=== PATIENT | female | born 1945 | race Caucasian/White ===

== ENCOUNTER 2017-12-13 09:21 | Outpatient (REF) | payer OTHER, SELFPAY ==
[2017-12-13 13:00] LABS: Abs Immature Grans 0.01 k/cumm (0.0-0.09); Absolute Basophil Count 0.04 k/cumm (0.0-0.2); Absolute Eosinophil Count 0.21 k/cumm (0.0-0.7); Absolute Lymphocyte Count 1.53 k/cumm (1.2-3.4); Absolute Monocyte Count 0.62 k/cumm (0.11-0.7); Absolute Neutrophil Count 3.09 k/cumm (1.2-6.7); Basophils % 0.7; Eosinophils % 3.8; HCT 40.9 % (36.0-46.0); HGB 13.4 g/dL (12.0-15.5); Immature Grans % 0.2; Lymphocytes % 27.8; Mean Corp. HGB Concentration 32.8 g/dL (32.0-36.0); Mean Corpuscular Hemoglobin 29.1 pg (27.0-33.0); Mean Corpuscular Volume 88.9 fL (80-95); Monocytes % 11.3; Neutrophils % 56.2; Platelet Count 337 x1000/uL (130-400); RBC Distribution Width 13.1 % (11.7-14.6)
[2017-12-13 13:20] LABS: ALT 30 U/L (12-78); AST 28 U/L (15-37); Albumin 3.6 g/dL (3.4-5.0); Alkaline Phosphatase 89 U/L (46-116); Anion Gap 9.5 mmol/L (3-11); BUN 14 mg/dL (7-18); Bilirubin, Total 0.5 mg/dL (0.2-1.0); CO2 28.5 mmol/L (21.0-32.0); CREATININE 0.86 mg/dL (0.55-1.02); Chloride 101 mmol/L (98-107); Glucose 111 mg/dL (70-100); Potassium 3.8 mmol/L (3.5-5.1); Sodium 139 mmol/L (136-145); TSH (W/Ref FT4) 2.45 uIU/mL (0.358-3.74); Total Protein 7.1 g/dL (6.4-8.2)
== END 2017-12-13 09:41 ==
LOC: NCHCN 09:21
PROVIDERS: PCP Family Medicine; Visit Provider Family Medicine
DX: I10 Essential (primary) hypertension (principal); R41.3 Other amnesia; L29.9 Pruritus, unspecified
CPT/HCPCS: 80053; 84443; 85025

== ENCOUNTER 2018-06-06 08:53 | Outpatient (REF) | payer OTHER, SELFPAY ==
[2018-06-06 12:57] LABS: HCT 38.6 % (36.0-46.0); HGB 12.6 g/dL (12.0-15.5); Mean Corp. HGB Concentration 32.6 g/dL (32.0-36.0); Mean Corpuscular Hemoglobin 28.7 pg (27.0-33.0); Mean Corpuscular Volume 87.9 fL (80-95); Mean Platelet Volume 11.2 fL (8.0-11.0); Platelet Count 342 x1000/uL (130-400); RBC 4.39 m/cumm (4.00-5.20); RBC Distribution Width 13.4 % (11.7-14.6); White Blood Cell Count 5.77 k/cumm (4.4-10.8)
[2018-06-06 13:41] LABS: ALT 31 U/L (12-78); AST 25 U/L (15-37); Albumin 3.4 g/dL (3.4-5.0); Alkaline Phosphatase 92 U/L (46-116); Anion Gap 10.2 mmol/L (3-11); BUN 16 mg/dL (7-18); Bilirubin, Total 0.4 mg/dL (0.2-1.0); CO2 27.8 mmol/L (21.0-32.0); CREATININE 0.87 mg/dL (0.55-1.02); Calcium 9.3 mg/dL (8.5-10.1); Chloride 103 mmol/L (98-107); Glucose 111 mg/dL (70-100); Potassium 4.1 mmol/L (3.5-5.1); Sodium 141 mmol/L (136-145); TSH (W/Ref FT4) 2.18 uIU/mL (0.358-3.74); Total Protein 6.8 g/dL (6.4-8.2)
== END 2018-06-06 09:13 ==
LOC: NCHCN 08:53
PROVIDERS: PCP Family Medicine; Visit Provider Family Medicine
DX: I10 Essential (primary) hypertension (principal); R73.01 Impaired fasting glucose; E66.9 Obesity, unspecified
CPT/HCPCS: 80053; 85027; 83036; 84443

== ENCOUNTER 2018-06-14 00:56 | Outpatient (CLI) | payer OTHER, SELFPAY ==
--- NOTE | 2018-06-14 08:00 | DI.RAD_ITS ---
SYMPTOM/DIAGNOSIS: M25.551, RT HIP PAIN RIGHT HIP AND PELVIS: Comparison is made with 05/11/16. The right hip joint is well maintained. The bones are intact and normally mineralized. The sacroiliac joints and symphysis pubis are intact. Mild degenerative changes are seen in the lower lumbar spine which appear stable compared to 05/11/16. The soft tissues show no acute abnormality. IMPRESSION: Negative right hip. Mild stable degenerative changes of the lumbar spine.
== END 2018-06-14 01:16 ==
PROVIDERS: PCP Family Medicine; Visit Provider Family Medicine
DX: M25.551 Pain in right hip (principal)
CPT/HCPCS: 73502

== ENCOUNTER 2018-12-20 01:23 | Outpatient (CLI) | payer OTHER, SELFPAY ==
--- NOTE | 2018-12-20 14:37 | DI.CT_ITS ---
EXAM: CT CHEST WO CLINICAL HISTORY: SOLITARY PULMONARY NODULE R91.1 TECHNIQUE: Noncontrast COMPARISON: ABD PELVIS WITH CONTRAST from 11/20/2016 FINDINGS: This CT from [facility] in [facility] showed a 7 millimeter nodule at the major fissure between the left upper and lower lobes. This nodule was seen on 2017 CT of the abdomen and pelvis. There has been no change in the 7 millimeter ovoid nodule seen in the major fissure between the left upper and lower lobes. A 3-4 millimeter nodule is seen in the right lower lobe which appears unchang ed. There is minimal scarring near the right lung apex. No infiltrates, effusions or pulmonary michael a is seen. The heart size is normal. There is mild aortic calcification. There are mild coronary a rtery calcifications. There is dilatation of the ascending aorta to 4.2 cm. No adenopathy is seen. There are 2 low-density lesions in the liver which appear unchanged. The gallbladder is somewhat co ntracted. This pancreas is mildly atrophic. The adrenals, spleen and upper portions of the kidneys are unremarkable. Degenerative changes are seen in the spine. IMPRESSION: Stable smoothly marginated 7 millimeter nodule in the left major fissure. If the patient is low risk, no further follow-up is necessary.
== END 2018-12-20 01:43 ==
PROVIDERS: PCP Family Medicine; Visit Provider Family Medicine
DX: R91.1 Solitary pulmonary nodule (principal); K86.89 Other specified diseases of pancreas; K76.89 Other specified diseases of liver
CPT/HCPCS: 71250; 82565

== ENCOUNTER 2019-02-23 02:17 | Outpatient (CLI) | payer OTHER, SELFPAY ==
--- NOTE | 2019-02-23 13:13 | DI.DEXA_ITS ---
EXAM: XR DEXA BONE DENSITY W/WO RODNEY CLINICAL HISTORY: OSTEOPOROSIS M81.0 TECHNIQUE: DEXA scan was performed according to the usual protocol. COMPARISON: No exams were available for comparison FINDINGS: Findings for left hip scanning are T-score -1.7 with femoral neck T-score -1.9. Prior study of 2015 showed left hip T-score -1.9. Findings for lumbar spine scanning are T-score -0.7. Previous examination of November 2015 showed lum bar T-score -1.3. Left forearm scanning shows T-score -1.6, prior study of November 2015 showed left forearm T-score -2. 0. IMPRESSION: Findings consistent with osteopenia according to the WHO criteria. Lateral vertebral scanogram shows no evidence of a vertebral compression fracture.
== END 2019-02-23 02:37 ==
PROVIDERS: PCP Family Medicine; Visit Provider Family Medicine
DX: M81.0 Age-related osteoporosis without current pathological fracture (principal); M85.88 Other specified disorders of bone density and structure, other site
CPT/HCPCS: 77080

== ENCOUNTER 2019-03-24 06:01 | Outpatient (CLI) | payer OTHER, SELFPAY ==
--- NOTE | 2019-03-24 09:58 | DI.MAMMO_ITS ---
EXAM: MAMMO SCREENING CLINICAL HISTORY: SCREENING, Z12.31 TECHNIQUE: Mammograms were interpreted according to the usual protocol including computer analysis w [employer] CAD system, tomosynthesis and C-view imaging. COMPARISON: May 2017 FINDINGS: The breasts are of moderate density with fairly symmetrical distribution of fibroglandular tissue. N o dominant mass or clumped microcalcification is identified in either breast. Current examination is compared with previous examinations including May 2017 and there has been no gross interval change in appearance in comparison with the previous studies. IMPRESSION: No specific evidence of malignancy at this time. Routine screening examinations are suggested at year ly intervals due to the family history of breast carcinoma. Category 1, breast density category B. BI-RADS Cat 1 - Negative Breast Density - Category B - Scattered areas of fibroglandular density
== END 2019-03-24 06:21 ==
PROVIDERS: PCP Family Medicine; Visit Provider Family Medicine
DX: Z12.31 Encounter for screening mammogram for malignant neoplasm of breast (principal); Z80.3 Family history of malignant neoplasm of breast
CPT/HCPCS: 77063; 77067

== ENCOUNTER 2019-07-31 01:16 | Outpatient (CLI) | payer OTHER, SELFPAY ==
--- NOTE | 2019-07-31 | DI.CT_ITS ---
EXAM: CT NECK W CLINICAL HISTORY: NECK MASS, R22.1. TECHNIQUE: Imaging Protocol: Axial computed tomography images with coronal and sagittal reformatted images were created and reviewed CONTRAST MATERIAL: Intravenous: Omnipaque 350 Contrast volume:95 ml contrast route:IV - COMPARISON: US CAROTID ULTRASOUND from 03/14/2013 FINDINGS: Parotids/submandibular/thyroid gland: Normal. Lymphadenopathy: There are multiple bilateral enlarged lymph nodes, measuring up to 2 cm in size see n bilaterally in the sub mandibular and submental regions. Some of the nodes have a necrotic periphe rally enhancing appearance. There are a few enlarged high internal jugular lymph nodes. Carotids/Jugular: There is marked tortuosity of both internal carotid arteries which show calcificat ion.. Soft tissues: The floor the mouth is unremarkable. The epiglottis and vocal cords are within normal limits. Images through both lung apices are unremarkable. IMPRESSION: Multiple abnormally enlarged lymph nodes mainly in the submental and submandibular locations. Some o f the nodes are necrotic. No mass is identified. The findings could be related to inflammatory or i nfectious causes.. RADIATION DOSE DELIVERED: 444.6mGy.cm Total DLP DATA REPOSITORY: All CT scans at this facility are submitted to the National Radiology Data Registry (NRDR) Dose Index Registry (DIR) with the [employer] (ACR). RADIATION OPTIMIZATION: All CT scans at this facility use at least one of these dose optimization te chniques: automated exposure control; mA and/or kV adjustment per patient size (includes targeted exa ms where dose is matched to clinical indication); or iterative reconstruction.
[2019-07-31 14:10] LABS: CREATININE 0.99 mg/dL (0.55-1.02); Estimated GFR 54.68 (mL/min/1.73m2)
[2019-07-31] MEDS: Omnipaque 350 MG/ML 100 ML BTL IJ (14:43)
[2019-07-31] MEDS: Normal Saline - Diluent 50 ML VIAL IV (14:45)
[2019-07-31] MEDS: Normal Saline Flush 10 ML SYR IVP (14:46)
== END 2019-07-31 01:36 ==
PROVIDERS: PCP Family Medicine; Visit Provider Otolaryngology Otolaryngology/Facial Plastic Surgery
DX: R22.1 Localized swelling, mass and lump, neck (principal); R59.0 Localized enlarged lymph nodes
CPT/HCPCS: 70491; 82565; J3490

== ENCOUNTER 2019-08-11 11:54 | Outpatient (CLI) | payer OTHER, SELFPAY ==
[2019-08-11 12:55] LABS: Abs Immature Grans 0.01 k/cumm (0.0-0.09); Absolute Basophil Count 0.03 k/cumm (0.0-0.2); Absolute Eosinophil Count 0.17 k/cumm (0.0-0.7); Absolute Lymphocyte Count 1.43 k/cumm (1.2-3.4); Absolute Monocyte Count 0.51 k/cumm (0.11-0.7); Absolute Neutrophil Count 3.21 k/cumm (1.2-6.7); Basophils % 0.6; Eosinophils % 3.2; HCT 37.2 % (36.0-46.0); HGB 12.3 g/dL (12.0-15.5); Immature Grans % 0.2 %; Lymphocytes % 26.7; Mean Corp. HGB Concentration 33.1 g/dL (32.0-36.0); Mean Corpuscular Hemoglobin 28.7 pg (27.0-33.0); Mean Corpuscular Volume 86.9 fL (80-95); Mean Platelet Volume 9.9 fL (8.0-11.0); Monocytes % 9.5; Neutrophils % 59.8; Platelet Count 429 x1000/uL (130-400); RBC 4.28 m/cumm (4.00-5.20); RBC Distribution Width 13.9 % (11.7-14.6); White Blood Cell Count 5.36 k/cumm (4.4-10.8)
[2019-08-11 13:41] LABS: ALT 25 U/L (14-59); AST 23 U/L (15-37); Albumin 3.6 g/dL (3.4-5.0); Alkaline Phosphatase 121 U/L (46-116); Anion Gap 10.8 mmol/L (3-11); BUN 14 mg/dL (7-18); Bilirubin, Total 0.2 mg/dL (0.2-1.0); CO2 25.2 mmol/L (21.0-32.0); CREATININE 0.99 mg/dL (0.55-1.02); Calcium 9.1 mg/dL (8.5-10.1); Chloride 102 mmol/L (98-107); Estimated GFR 54.68 (mL/min/1.73m2); Glucose 109 mg/dL (74-106); Potassium 3.9 mmol/L (3.5-5.1); Sodium 138 mmol/L (136-145); Total Protein 6.9 g/dL (6.4-8.2)
[2019-08-14 10:53] LABS: CMV Ab, IgM Negative (Negative); Toxoplasma Ab, IgM Negative (Negative)
[2019-08-14 11:04] LABS: HIV-1/2 Ag & Ab Screen Negative (Negative)
[2019-08-14 11:21] LABS: Lyme Ab w Rflx to Lyme Confirm Negative (Negative)
[2019-08-14 14:39] LABS: TB Interpretation Negative (Negative)
[2019-08-17 16:02] LABS: Bartonella Henselae IgG <1:128 titer (<1:128); Bartonella Henselae IgM <1:20 titer (<1:20); Bartonella Quintana IgG <1:128 titer (<1:128); Bartonella Quintana IgM <1:20 titer (<1:20)
== END 2019-08-11 12:14 ==
PROVIDERS: PCP Family Medicine; Visit Provider Otolaryngology Otolaryngology/Facial Plastic Surgery
DX: R22.1 Localized swelling, mass and lump, neck (principal); D49.2 Neoplasm of unspecified behavior of bone, soft tissue, and skin; R59.0 Localized enlarged lymph nodes; Z11.4 Encounter for screening for human immunodeficiency virus [HIV]; Z01.84 Encounter for antibody response examination
CPT/HCPCS: 36415; 80053; 87389; 85025; 86480; 86611; 86618; 86645; 86778

== ENCOUNTER 2019-08-14 13:48 | Outpatient (REF) | payer OTHER, SELFPAY ==
[2019-08-15 13:10] LABS: COVID-19 RT-PCR UVMMC Result Negative (Negative)
== END 2019-08-14 14:08 ==
LOC: NCHCN 13:48
PROVIDERS: PCP Family Medicine; Visit Provider Physician Assistant
DX: J06.9 Acute upper respiratory infection, unspecified (principal); Z03.818 Encounter for observation for suspected exposure to other biological agents ruled out
CPT/HCPCS: U0003

== ENCOUNTER 2019-11-16 02:52 | Outpatient (RCR) | payer OTHER, SELFPAY ==
[2019-11-02 07:49] LABS: Abs Immature Grans 0.01 10^3/uL (0.0-0.06); Absolute Basophil Count 0.05 10^3/uL (0.0-0.2); Absolute Eosinophil Count 0.13 10^3/uL (0.0-0.7); Absolute Lymphocyte Count 1.94 10^3/uL (1.2-3.4); Absolute Neutrophil Count 2.61 10^3/uL (1.2-6.7); Basophils % 0.9; Eosinophils % 2.4; HCT 36.5 % (36.0-46.0); HGB 12.1 g/dL (11.2-15.7); Immature Grans % 0.2; Lymphocytes % 36.3; MCH 28.6 pg (27.0-33.0); MCHC 33.2 % (32.0-36.0); MCV 86.3 fL (80-95); MPV 9.3 fL (8.0-11.0); Monocytes % 11.2; Nucleated RBC 0 %; Platelet Count 300 10^3/uL (130-400); RBC 4.23 10^6/uL (3.93-5.22); RDW 13.3 % (11.7-14.6); RDW-SD 41.9 fL; WBC 5.34 10^3/uL (4.4-10.8)
[2019-11-02] MEDS: Normal Saline Flush 10 ML SYR IVP (07:54)
[2019-11-02 08:00] LABS: ALT 34 U/L (14-59); AST 26 U/L (15-37); Albumin 3.6 g/dL (3.4-5.0); Alkaline Phosphatase 100 U/L (46-116); Anion Gap 8.6 mmol/L (3-11); BUN 11 mg/dL (7-18); Bilirubin, Total 0.4 mg/dL (0.2-1.0); CO2 27.4 mmol/L (21.0-32.0); CREATININE 0.93 mg/dL (0.55-1.02); Calcium 8.7 mg/dL (8.5-10.1); Chloride 101 mmol/L (98-107); Estimated GFR 58.77 (mL/min/1.73m2); Glucose 114 mg/dL (74-106); LDH 184 U/L (81-234); Potassium 3.5 mmol/L (3.5-5.1); Sodium 137 mmol/L (136-145); Total Protein 7.1 g/dL (6.4-8.2); Uric Acid 4.4 mg/dL (2.6-6.0)
[2019-11-16 12:27] LABS: HCT 33.9 % (36.0-46.0); HGB 11.2 g/dL (11.2-15.7); MCH 28.6 pg (27.0-33.0); MCV 86.5 fL (80-95); MPV 9.7 fL (8.0-11.0); Platelet Count 347 10^3/uL (130-400); RBC 3.92 10^6/uL (3.93-5.22); RDW-SD 42.8 fL; WBC 15.64 10^3/uL (4.4-10.8)
[2019-11-16 12:40] LABS: ALT 33 U/L (14-59); AST 31 U/L (15-37); Albumin 3.3 g/dL (3.4-5.0); Alkaline Phosphatase 123 U/L (46-116); Anion Gap 9.7 mmol/L (3-11); BUN 8 mg/dL (7-18); Bilirubin, Total 0.2 mg/dL (0.2-1.0); CO2 28.3 mmol/L (21.0-32.0); CREATININE 0.75 mg/dL (0.55-1.02); Calcium 8.6 mg/dL (8.5-10.1); Chloride 96 mmol/L (98-107); Glucose 101 mg/dL (74-106); Sodium 134 mmol/L (136-145); Total Protein 6.8 g/dL (6.4-8.2); Uric Acid 5.8 mg/dL (2.6-6.0)
[2019-11-16 12:46] LABS: Absolute Eosinophil Count 0.16 10^3/uL (0.0-0.7); Absolute Lymphocyte Count 2.03 10^3/uL (1.2-3.4); Absolute Monocyte Count 1.88 10^3/uL (0.1-0.8); Bands % 3
[2019-11-16 12:47] LABS: Diff Comment Manual Differential; Metamyelocytes % 2; Myelocytes % 1; Nucleated RBC 1 %; RBC Morphology Normal
== END 2019-11-16 23:59 | disposition home or self-care (01) ==
LOC: INF 02:52
PROVIDERS: PCP Family Medicine; Visit Provider Internal Medicine Hematology & Oncology
DX: C83.31 Diffuse large B-cell lymphoma, lymph nodes of head, face, and neck (principal); Z45.2 Encounter for adjustment and management of vascular access device
CPT/HCPCS: 36591; 80053; 83615; 84550; 85025

== ENCOUNTER 2019-11-28 23:34 | Emergency (ER) | payer OTHER, SELFPAY ==
--- NOTE | 2019-11-28 23:30 | RT.EKG_ITS ---
APPROVED REPORT Exam: Resting ECG Patient Location: E HR:77 bpm ECG Measurements Heart Rate 77 AXIS TX 178 P 58 QRSd 86 QRS -19 QT 397 T 37 QTc 450 Conclusion Sinus rhythm...normal P axis, V-rate 60- 99
[2019-11-28 23:34] VITALS: BP 103/62; PULSE 78; RESP 14; TEMP 36.2; O2SAT 99
[2019-11-28 23:41] VITALS: RESP 14
[2019-11-28 23:44] LABS: BE (Venous) 0 mmol/L (-2-3); HCO3 (Venous) 24 mmol/L (23-28); O2 Sat (Venous) 96 %; TCO2 (Venous) 22 mmol/L (24-29); pCO2 (Venous) 36 mmHg (41-51); pH (Venous) 7.43 (7.31-7.41); pO2 (Venous) 78 mmHg
--- NOTE | 2019-11-28 23:45 | DI.CT_ITS ---
EXAM: CT HEAD WO CLINICAL HISTORY: fall. TECHNIQUE: Imaging Protocol: Axial computed tomography images with coronal and sagittal reformatted images were created and reviewed COMPARISON: CT HEAD WITH/WITHOUT CONTRAST from 09/06/2015 FINDINGS: Ventricles and Extra axial spaces: Normal in size and morphology for the patient's age. Hemorrhage: None. Cerebral parenchyma: There are areas of decreased attenuation in the white matter consistent with kristi rovascular ischemic change. No acute territorial infarct. Midline shift: None. Brainstem/Cerebellum: Normal. Calvarium: Normal. Visualized Paranasal sinuses/Mastoids: Clear. Soft Tissues: Unremarkable. IMPRESSION: No acute intracranial process. RADIATION DOSE DELIVERED: 757.04mGy.cm Total DLP DATA REPOSITORY: All CT scans at this facility are submitted to the National Radiology Data Registry (NRDR) Dose Index Registry (DIR) with the [employer] (ACR). RADIATION OPTIMIZATION: All CT scans at this facility use at least one of these dose optimization te chniques: automated exposure control; mA and/or kV adjustment per patient size (includes targeted exa ms where dose is matched to clinical indication); or iterative reconstruction.
--- NOTE | 2019-11-28 23:45 | DI.CT_ITS ---
EXAM: CT CHEST PE CTA CLINICAL HISTORY: chest pain, syncope, cancer patient. TECHNIQUE: Imaging Protocol: Axial CT angiography was performed with multi-slice acquisition and mu lti-planar and/or 3D reconstructions. CONTRAST MATERIAL: Intravenous: Omnipaque 350 Contrast volume:100 mL COMPARISON: CT ABD PELVIS WITH CONTRAST from 11/20/[address] CHEST ABDOMEN PELVIS W CONTRAST CH from 05/21/[address] CHEST WO from 12/20/2018 FINDINGS: Pulmonary Arteries: There is a filling defect in a branch of the pulmonary arteries in the left lower lobe. (Series 6, images 321-325). This would be consistent with a pulmonary embolus. No evidence of a saddle embolus. Tracheobronchial tree: Patent where visualized. Mediastinum and Jessica: No dominant adenopathy or fluid collection. Pulmonary parenchyma: No focal consolidation. Nodule adjacent to the left major fissure is unchanged and likely reflects an intraparenchymal lymph node. Dependent atelectasis is seen in the lung bases . No architectural distortion. Pleura: No effusion or pneumothorax. Heart: Mild cardiomegaly. Moderate coronary artery calcification is present. No significant pericardi al effusion. Aorta: Thoracic aorta non-dilated. Atherosclerosis. No dissection. Upper abdomen: Unremarkable. Bones: Degenerative changes. Soft tissues: Unremarkable. IMPRESSION: Findings of a pulmonary embolus in a branch of the pulmonary artery to the left lower lobe as describ ed above. RADIATION DOSE DELIVERED: 465.07mGy.cm Total DLP DATA REPOSITORY: All CT scans at this facility are submitted to the National Radiology Data Registry (NRDR) Dose Index Registry (DIR) with the [employer] (ACR). RADIATION OPTIMIZATION: All CT scans at this facility use at least one of these dose optimization te chniques: automated exposure control; mA and/or kV adjustment per patient size (includes targeted exa ms where dose is matched to clinical indication); or iterative reconstruction.
[2019-11-28 23:46] VITALS: BP 97/54; PULSE 81; PULSE 82; RESP 16; O2SAT 96
--- NOTE | 2019-11-28 23:50 | ED.GENADUL_ITS ---
Discharge Plan Disposition Patient Disposition: HOME Condition: Stable Discharge Details Clinical Impression: Syncope Primary Care Provider: Janeth Tillman ED Provider: Vamshi Younger Home Meds and New Rx's Prescriptions: Continued triamterene-hydrochlorothiazid 1 EACH capsule 1 tab-cap PO DAILY RF: 0 lovastatin 20 MG tablet 40 mg PO DAILY RF: 0 metoprolol succinate 50 MG tablet extended release 24 hr 25 mg PO DAILY RF: 0 zolpidem 10 MG tablet 10 mg PO HS PRN PRNRF: 0 ergocalciferol (vitamin D2) 2,000 UNIT tablet 2,000 unit PO DAILY RF: 0 venlafaxine 50 MG tablet 100 mg PO DAILY RF: 0 Discharge Instructions Instructions: Syncope (ED) Additional Instructions: make sure you are drinking plenty of fluids to stay hydrated follow up with your oncologist or primary care provider within 1 week if you feel more ill, have worsening pain or difficulty breathing return to the emergency department Medical Decision Making 74 yo female with hx of lymphoma who started chemotherapy within the last 4 weeks and had her 2nd dose this past comes in with feeling weak all day and tonight went to the restroom. She stood up and felt diaphoretic and chest pressure and went unresponsive for several seconds. Was awake when the came after he heard her fall. She denies any pain now and denies headache, fev ers, rashes. She arrives HD stable and is speaking in full sentences with no signs of trauma, no focal neuro deficits, normal lung exam. Suspect this could be orthostasis vs reaction to her chemotherapy, though given chest pain will obtain ecg and troponin and given her cancer history obtain cta to evaluate for PE. No tearing back pain and normal vascular exam so doubt dissection. No abdominal tenderness or lower back pain so doubt entities such as AAA or other surgical pathology. imaging shows no acute findings, she remains stable and feels no symptoms. Labs show troponin just barely outside the negative range at 0.07. I strongly recommended she be admitted given the troponin, syncope and chest pain but she declined as she feels at her baseline and wants to go home. She has capacity to make her own decisions and understands the risks of leaving including missing an [place] and possible and disability and is willing to accept these risks. I did recommend and she understands she needs to f/u with her pcp or oncologist cornelio and she understands to return if worsening in any way. Differential Diagnosis Differential Diagnosis: anemia, pe, acs, electrolyte abnormality Medical Records Medical records reviewed: Yes I reviewed the patient's medical records. Imaging Data Radiologic Study: Attestation: I personally reviewed and interpreted this imaging study as follows: Imaging: CT Scan Radiologist's impression: IMPRESSION: No acute intracranial abnormality. Radiologic Study #2: Attestation: I personally reviewed and interpreted this imaging study as follows: Imaging: CT Scan Radiologist's impression: 1. No acute process is evident. 2. No evidence of pulmonary embolism or aortic dissection. 3. Mild aneurysmal dilatation of the ascending aorta measures 4.0 cm diameter. 4. Mild cardiomegaly without evidence of decompensation. 5. Additional non-emergent findings detailed above. Lab Data Lab results reviewed: Yes I reviewed the patient's lab results. ECG Data Attestation: I personally reviewed and interpreted this ECG (s) as follows: Prior ECG tracings: not available for review Interpretation: sinus rhythm, rate of 77, pr 178, qtc 460 HPI General Mode of arrival: EMS . Date/Time Provider Initiated Documentation: 11/28/19 23:40 . Limitations to Documentation: no limitations . Information obtained by: patient . History of Present Illness 74 year old F presents to the emergency department with the chief complaint of weakness, described as moderate, No relieving factors improve symptom(s), No exacerbating factors reported . Patient did receive the following treatments prior to arrival, none Related Data Home Medications Medication Instructions Recorded Confirmed lovastatin 40 mg PO DAILY tab-cap 08/02/12 08/16/17 triamterene-hydrochlorothiazid 1 tab-cap PO DAILY tab-cap 08/02/12 08/16/17 metoprolol succinate 25 mg PO DAILY 01/26/14 08/16/17 zolpidem 10 mg PO HS PRN PRN 01/26/14 08/16/17 ergocalciferol (vitamin D2) 2,000 unit PO DAILY 11/02/16 08/16/17 venlafaxine 100 mg PO DAILY 08/12/17 08/16/17 Allergies Allergy/AdvReac Type Severity Reaction Status Date / Time amlodipine AdvReac Severe Unverified 11/28/19 23:36 lisinopril AdvReac Severe cough Unverified 11/28/19 23:36 suvorexant [From [facility]] AdvReac Severe Unverified 11/28/19 23:36 General Stated Complaint: Dizzy/Sync MARY: 2 Review of Systems All systems reviewed & are unremarkable except as noted in HPI and below Constitutional Constitutional: Denies chills and Denies fever(s) Cardiovascular Cardiovascular: Denies dyspnea Respiratory Respiratory: Denies cough and Denies dyspnea Gastrointestinal Gastrointestinal: Denies abdominal pain, Denies nausea and Denies vomiting Genitourinary Genitourinary: Denies dysuria Musculoskeletal Musculoskeletal: Denies joint swelling Integumentary/Breasts Skin/Breast: Denies rash [facility] Medical History (Updated 11/29/19 @ 00:57 by Vamshi Younger MD) Depression Hypertension Social History Smoking/Tobacco Use Status: Former Tobacco Use Alcohol Intake: never Drug use: Never Substance use type: does not use Do you feel safe at home: Yes Do you feel safe in your relationship?: Yes Exam Const General: no acute distress Orientation: alert HENMT Head: normal to inspection Ears: external ears normal General nose exam: external nose normal Mouth: moist mucous membranes Eyes General: appearance normal, both eyes and all related structures Neck Neck: normal visual inspection Resp Effort & Inspection: normal respiratory effort and able to speak in complete sentences Cardio Rate: regular rate GI Palpation: soft and nontender Skin General skin exam: no rashes or lesions noted Neuro General: patient alert and patient oriented x3 Extrem General: normal to inspection Psych Mental Status: mental status grossly normal Course Vital Signs Vital signs: Vital Signs Temperature 36.2 C L 11/28/19 23:34 Pulse 78 11/28/19 23:34 Respiratory Rate 14 11/28/19 23:34 Blood Pressure 103/62 11/28/19 23:34 Pulse Oximetry 99 11/28/19 23:34 Temperature 36.2 C L 11/28/19 23:34 Temperature Source Skin 11/28/19 23:34 Pulse 78 11/28/19 23:34 Respiratory Rate 14 11/28/19 23:41 Respiratory Effort Non-Labored 11/28/19 23:41 Respiratory Depth Normal 11/28/19 23:41 Blood Pressure 103/62 11/28/19 23:34 Blood Pressure Position Supine 11/28/19 23:34 Pulse Oximetry 99 11/28/19 23:34 Oxygen Delivery Method Room Air 11/28/19 23:34 Oxygen Flow Rate 0 11/28/19 23:34 Pain Level 0 11/28/19 23:34
[2019-11-28 23:59] LABS: PTT Activated 18.5 sec (21.0-31.4); Prothrombin Time 10.1 sec (9.3-11.0)
[2019-11-29 00:03] LABS: ALT 23 U/L (14-59); AST 17 U/L (15-37); Albumin 3.4 g/dL (3.4-5.0); Alkaline Phosphatase 130 U/L (46-116); Anion Gap 11.6 mmol/L (3-11); BUN 19 mg/dL (7-18); Bilirubin, Total 0.5 mg/dL (0.2-1.0); CO2 25.4 mmol/L (21.0-32.0); CREATININE 0.98 mg/dL (0.55-1.02); Calcium 8.8 mg/dL (8.5-10.1); Chloride 97 mmol/L (98-107); Creatine Kinase 26 U/L (26-192); Estimated GFR 55.33 (mL/min/1.73m2); Glucose 149 mg/dL (74-106); Lipase 112 U/L (73-393); Magnesium 1.9 mg/dL (1.8-2.4); Potassium 3.4 mmol/L (3.5-5.1); Sodium 134 mmol/L (136-145); Total Protein 6.5 g/dL (6.4-8.2)
[2019-11-29] MEDS: Omnipaque 350 MG/ML 100 ML BTL IJ (00:23)
[2019-11-29] MEDS: Normal Saline Flush 10 ML SYR IVP (00:23)
[2019-11-29] MEDS: Normal Saline - Diluent 50 ML VIAL IV (00:23)
[2019-11-29 00:29] VITALS: BP 94/55; PULSE 73; PULSE 92; RESP 16; O2SAT 95
[2019-11-29 00:32] VITALS: BP 94/49; PULSE 74; PULSE 78; O2SAT 97
[2019-11-29 00:32] LABS: Abs Immature Grans 0.75 10^3/uL (0.0-0.06); HCT 33.8 % (36.0-46.0); HGB 11.1 g/dL (11.2-15.7); MCH 28.5 pg (27.0-33.0); MCHC 32.8 % (32.0-36.0); MCV 86.9 fL (80-95); MPV 10.6 fL (8.0-11.0); Nucleated RBC 0 %; RBC 3.89 10^6/uL (3.93-5.22); RDW 14.5 % (11.7-14.6); Troponin I 0.07 ng/mL (<0.06); WBC 4.73 10^3/uL (4.4-10.8)
[2019-11-29 00:33] LABS: ETHANOL BLOOD < 3.0 mg/dL (<3)
[2019-11-29 00:35] LABS: Absolute Eosinophil Count 0.05 10^3/uL (0.0-0.7)
[2019-11-29 00:37] LABS: Diff Comment Manual Differential; Microcytosis 1+
[2019-11-29 00:39] VITALS: PULSE 80; RESP 19; O2SAT 96
[2019-11-29 00:44] VITALS: PULSE 77; RESP 10; O2SAT 96
[2019-11-29 00:53] VITALS: BP 90/54; PULSE 78; PULSE 79; RESP 16; O2SAT 96
[2019-11-29 01:06] VITALS: BP 93/49; PULSE 77; RESP 14; O2SAT 96
[2019-11-29 09:06] LABS: Atypical Lymphocytes % 1; Bands % 1
[2019-11-29 09:13] LABS: Absolute Lymphocyte Count 1.42 10^3/uL (1.2-3.4); Absolute Monocyte Count 0.09 10^3/uL (0.1-0.8); Absolute Neutrophil Count 3.07 10^3/uL (1.2-6.7)
[2019-11-29 09:14] LABS: Absolute Basophil Count 0.09 10^3/uL (0.0-0.2)
--- NOTE | 2019-11-30 16:04 | DI.VRAD_ITS ---
PROCEDURE INFORMATION: Exam: CT Head Without Contrast Exam date and time: 11/28/2019 12:06 AM Age: 74 years old Clinical indication: Injury or trauma; Blunt trauma (contusions or hematomas); Consciousness not specified; Injury date: 11/28/19; Injury details: Fall, cancer patient TECHNIQUE: Imaging protocol: Computed tomography of the head without contrast. Radiation optimization: All CT scans at this facility use at least one of these dose optimization techniques: automated exposure control; mA and/or kV adjustment per patient size (includes targeted exams where dose is matched to clinical indication); or iterative reconstruction. COMPARISON: CT HEAD WITH/WITHOUT CONTRAST 09/06/2015 12:59 PM FINDINGS: Brain: There is moderate diffuse cerebral atrophy present, consistent with this patient's age. No hemorrhage. There is mild diffuse heterogeneity of the white matter attenuation, this change is nonspecific but is likely secondary to chronic ischemia within microvascular distributions. No mass effect. Cerebral ventricles: No ventriculomegaly. Bones/joints: Unremarkable. No acute fracture. Paranasal sinuses: Visualized sinuses are unremarkable. No fluid levels. Mastoid air cells: Visualized mastoid air cells are well aerated. Soft tissues: Unremarkable. IMPRESSION: No acute intracranial abnormality. Dictated and Authenticated by: Minh Lao MD. Ordering:DUSTIN Bonds MD
--- NOTE | 2019-11-30 16:04 | DI.VRAD_ITS ---
PROCEDURE INFORMATION: Exam: CT Angiography Chest With Contrast Exam date and time: 11/28/2019 12:13 AM Age: 74 years old Clinical indication: Type not specified; Prior surgery; Surgery date: 1-6 months; Surgery type: Port placed, biopsy of neck; Patient HX: Chest pain, syncope, cancer patient TECHNIQUE: Imaging protocol: Computed tomographic angiography of the chest with intravenous contrast. 3D rendering (Not supervised by radiologist): MIP and/or 3D reconstructed images were created by the technologist. Radiation optimization: All CT scans at this facility use at least one of these dose optimization techniques: automated exposure control; mA and/or kV adjustment per patient size (includes targeted exams where dose is matched to clinical indication); or iterative reconstruction. Contrast material: OMNIPAQUE 350; Contrast volume: 100 ml; Contrast route: INTRAVENOUS (IV); COMPARISON: No relevant prior studies available. FINDINGS: Tubes, catheters and devices: Right jugular port with its catheter tip in the SVC. Pulmonary arteries: The pulmonary arteries enhance appropriately with no evidence of pulmonary embolism. Aorta: The aorta enhances appropriately without evidence of dissection. There is mild aneurysmal dilatation of the ascending segment measuring 4.0 cm diameter, with mild aortic tortuosity. Thyroid: The visualized thyroid gland demonstrates no gross abnormality. Lungs: No acute tracheobronchial abnormalities. No pulmonary infiltrates or edema. Mild bilateral apical pleural/parenchymal scarring. 6 mm nodule in the left mid lung along the major fissure is unchanged. No further imaging evaluation is required. Pleural space: No pleural effusion. No pneumothorax. Heart: Mild cardiomegaly. No pericardial effusion. Mediastinal space: The esophagus is largely contracted but demonstrates no gross abnormality. Lymph nodes: No supraclavicular or axillary adenopathy. No mediastinal or hilar adenopathy. Liver: Well-circumscribed low-density lesion in the left hepatic lobe measuring 8 mm in diameter, demonstrating benign CT features with an average density of 5 Hounsfield units, most consistent with hepatic cyst. No further imaging characterization/followup is required based on current consensus criteria. Bones/joints: No acute osseous abnormalities are identified. Soft tissues: The soft tissues of the chest wall demonstrate no acute abnormality. IMPRESSION: 1. No acute process is evident. 2. No evidence of pulmonary embolism or aortic dissection. 3. Mild aneurysmal dilatation of the ascending aorta measures 4.0 cm diameter. 4. Mild cardiomegaly without evidence of decompensation. 5. Additional non-emergent findings detailed above. Dictated and Authenticated by: Chente Cook MD. Ordering:DUSTIN Bonds MD
== END 2019-11-29 01:05 | disposition home or self-care (01) ==
PROVIDERS: Emergency Provider Emergency Medicine; PCP Family Medicine
DX: R55 Syncope and collapse (principal); R07.9 Chest pain, unspecified; C83.30 Diffuse large B-cell lymphoma, unspecified site; Z79.899 Other long term (current) drug therapy; I10 Essential (primary) hypertension
CPT/HCPCS: 36415; 71275; 80053; 82550; 82805; 83690; 93005; 99285; 70450; 80320; 82248; 83735; 84484; 85025; 85610; 85730; 93010; J3490

== ENCOUNTER 2019-11-29 09:16 | Inpatient (IN) | payer OTHER, SELFPAY ==
[2019-11-29] VITALS (38 sets, daily range): BP systolic 113–142; BP diastolic 62–84; PULSE 78–155; RESP 12–22; TEMP 36.2–37.2; O2SAT 94–98
--- NOTE | 2019-11-29 09:15 | RT.EKG_ITS ---
APPROVED REPORT Exam: Resting ECG Patient Location: E HR:103 bpm ECG Measurements Heart Rate 103 AXIS TN [id number] P [id number] QRSd 82 QRS -17 QT 329 T 30 QTc 431 Conclusion sinus tachycardia
--- NOTE | 2019-11-29 09:26 | W.ED.GENAD ---
Discharge Plan Disposition Patient Disposition: [facility] INPATIENT Condition: Stable Discharge Details Clinical Impression: Acute pulmonary embolism Admit Date/Time: 11/29/19 13:06 Admit Provider: Swati Webb Attending Provider: Swati Webb Primary Care Provider: Janeth Tillman ED Provider: Tushar Galan Medical Decision Making 74-year-old female had a syncopal episode yesterday while getting up from the toilet. She was seen in the emergency department where her troponin was mid range, she had a CT scan of the chest and then subsequent elected to return home. The initial reading of the CT scan was negative. Dr. Mckeon today over read positive left lower lobe pulmonary embolism and I called the patient back to be reevaluated. She states she had some mild chest pressure with deep inhalation. She has otherwise been well. She arrives tachycardic and slightly anxious, afebrile with normal oxygenation. IV access established, patient given small fluid bolus, screening chest x-ray obtained and her labs were repeated. Ultrasound lower extremities obtained and negative for DVT. Chest x-ray without acute pulmonary findings. I discussed her case with her oncologist, Dr. Sullivan. He notes that she was given Neulasta 1 week ago and may have rising white blood cell counts, she she also is 1 week status post her last treatment. He agrees with admission initiation of Lovenox but does state that she may transition to novel oral anticoagulant as best covered by her insurance. Surface echocardiogram obtained and results pending. Patient will be admitted to the hospitalist service for further observation Lab Data Lab results reviewed: Yes I reviewed the patient's lab results. Labs: Laboratory Results - last 24 hr 11/29/19 11/29/19 11/29/19 09:50 09:50 09:50 WBC 2.00 L D RBC 3.55 L Hgb 10.2 L Hct 29.7 L MCV 83.7 D MCH 28.7 MCHC 34.3 RDW 14.3 Plt Count MPV 10.3 Immature Gran % 0.0 Neutrophils % 50.0 Band Neutrophils % 3 Lymphocytes % 36.0 Atypical Lymphs % 2 Monocytes % 2.0 Eosinophils % 4.0 Basophils % 3.0 Nucleated RBC % 0 Absolute Neutrophils 1.06 L Absolute Lymphocytes 0.76 L Absolute Monocytes 0.04 L Absolute Eosinophils 0.08 Absolute Basophils 0.06 RBC Morphology Normal PT 10.2 INR 1.0 APTT 25.0 D Sodium 130 L Potassium 3.2 L Chloride 95 L Carbon Dioxide 26.8 Anion Gap 8.2 BUN 15 Creatinine 0.65 Estimated GFR/1.73 m2 >= 60.00 Glucose 106 Calcium 8.5 Magnesium 1.8 Total Bilirubin 0.5 AST 17 ALT 20 Alkaline Phosphatase 114 Troponin I 0.06 Total Protein 6.2 L Albumin 3.3 L HPI General Mode of arrival: ambulatory. Date/Time Provider Initiated Documentation: 11/29/19 09:26. Limitations to Documentation: no limitations. Information obtained by: patient. History of Present Illness 74 year old F presents to the emergency department with the chief complaint of Called back for over-read of +PE, Syncope yesterday. Mild npressure w breat, described as mild, Quality is described as dull, and is localized to the chest. Patient reports no radiation. Patient started experiencing this hour(s) and it has been intermittent. No relieving factors improve symptom(s), No exacerbating factors reported . Patient notes syncope. Patient did receive the following treatments prior to arrival, none Related Data Home Medications Medication Instructions Recorded Confirmed lovastatin 40 mg PO DAILY tab-cap 08/02/12 11/29/19 triamterene-hydrochlorothiazid 1 tab-cap PO DAILY tab-cap 08/02/12 11/29/19 metoprolol succinate 25 mg PO DAILY 01/26/14 11/29/19 zolpidem 10 mg PO HS PRN PRN 01/26/14 11/29/19 ergocalciferol (vitamin D2) 2,000 unit PO DAILY 11/02/16 11/29/19 venlafaxine 100 mg PO DAILY 08/12/17 11/29/19 Allergies Allergy/AdvReac Type Severity Reaction Status Date / Time amlodipine AdvReac Severe Unverified 11/29/19 09:24 lisinopril AdvReac Severe cough Unverified 11/29/19 09:24 suvorexant [From [facility]] AdvReac Severe Unverified 11/29/19 09:24 General Stated Complaint: Chest Pain MARY: 2 Review of Systems Narrative: Upset regarding recent diagnosis. Has completed second round out of 6 of chemotherapy. Just finished prednisone prior to third round. Notes chest pressure with deep breath. No other complaints. 8 systems reviewed and otherwise negative [facility], [facility] Medical History Depression Hypertension Social History Smoking/Tobacco Use Status: Former Tobacco Use Alcohol Intake: never Drug use: Never Substance use type: does not use Do you feel safe at home: Yes Do you feel safe in your relationship?: Yes Exam Narrative Exam Narrative: GEN: awake, alert, oriented 3. Pleasant, well groomed, interactive. HEAD: Normocephalic, atraumatic ENT: Mucous membranes moist, oropharynx unremarkable, External ear exam unremarkable EYES: PERRL, EOMI NECK: Full ROM, no JAYCOB, no menigismus CHEST/RESP: Right anterior chest port with healing incision, nontender, clear to auscultation bilateral, no wheeze/rhonchi/rales CARDIOVASCULAR: Regular and tachycardic, no murmur, rub jm. 2+ Rad pulse bilateral ABDOMEN: Soft, nontender, no mass. +Bowel sounds EXT: Full ROM, no edema, no rash Neuro: Grossly normal neurologic exam, conversant, interactive. Psych: Speech fluent, thoughts congruent, affect normal Course Vital Signs Vital signs: Vital Signs Temperature 36.4 C L 11/29/19 09:18 Pulse 128 H 11/29/19 09:18 Respiratory Rate 18 11/29/19 09:18 Blood Pressure 142/76 H 11/29/19 09:18 Pulse Oximetry 98 11/29/19 09:18 Temperature 36.4 C L 11/29/19 09:18 Temperature Source Tympanic 11/29/19 09:18 Pulse 128 H 11/29/19 09:18 Respiratory Rate 18 11/29/19 09:18 Respiratory Effort Non-Labored 11/29/19 09:23 Blood Pressure 142/76 H 11/29/19 09:18 Blood Pressure Position Sitting 11/29/19 09:18 Pulse Oximetry 98 11/29/19 09:18 Oxygen Delivery Method Room Air 11/29/19 09:18 Oxygen Flow Rate 0 11/29/19 09:18 Pain Level 5 11/29/19 09:18
--- NOTE | 2019-11-29 09:45 | DI.US_ITS ---
EXAM: US EXTREMITY VENOUS BI CLINICAL HISTORY: Lymphoma, PE. TECHNIQUE: Bilateral lower extremity venous ultrasound performed using grayscale, color-flow, and sp ectral Doppler analysis. COMPARISON: CT CT CHEST PE CTA from 11/29/2019 FINDINGS: The bilateral common femoral, femoral and popliteal veins demonstrate normal compressibility, augment ation, and color Doppler. The posterior tibial veins are patent. The saphenofemoral junctions are unr emarkable. There is no evidence of a Pagan's cyst. The soft tissues are unremarkable. IMPRESSION: Right: Negative for DVT Left: Negative for DVT Findings were discussed with the emergency department on the date of the examination. DATA REPOSITORY:
[2019-11-29] MEDS: Normal Saline 500 ML IV (10:00)
[2019-11-29] MEDS: Normal Saline-STERILE FIELD 0.9% 10 ML SYR (10:02)
[2019-11-29] MEDS: Enoxaparin 80 MG/0.8 ML SYR SC ×2 (10:06→21:43)
[2019-11-29 10:08] LABS: Abs Immature Grans 0.01 10^3/uL (0.0-0.06); Absolute Basophil Count 0.06 10^3/uL (0.0-0.2); HCT 29.7 % (36.0-46.0); HGB 10.2 g/dL (11.2-15.7); MCH 28.7 pg (27.0-33.0); MCHC 34.3 % (32.0-36.0); MCV 83.7 fL (80-95); MPV 10.3 fL (8.0-11.0); Nucleated RBC 0 %; RBC 3.55 10^6/uL (3.93-5.22); RDW 14.3 % (11.7-14.6); RDW-SD 43.7 fL
--- NOTE | 2019-11-29 10:15 | DI.RAD_ITS ---
EXAM: XR PORTABLE CHEST AP CLINICAL HISTORY: Chest pressure, PE noted on CT last night TECHNIQUE: 2D digital imaging was performed. COMPARISON: CT CT CHEST ABDOMEN PELVIS W CONTRAST CH from 05/21/[address] CHEST PE CTA from 11/29/2019 FINDINGS: MEDIASTINUM: Normal. HEART: Normal. PULMONARY VASCULATURE: Normal. LUNGS: Clear. PLEURAL SPACE: No pleural effusion or pneumothorax. BONE:Within normal limits for the patient's age. OTHER FINDINGS:The tip of the indwelling central venous catheter is in good position at the junction of the superior vena cava and right atrium. IMPRESSION: No acute pulmonary findings. DATA REPOSITORY: RADIATION DOSE DELIVERED:
[2019-11-29 10:22] LABS: ALT 20 U/L (14-59); AST 17 U/L (15-37); Albumin 3.3 g/dL (3.4-5.0); Alkaline Phosphatase 114 U/L (46-116); Anion Gap 8.2 mmol/L (3-11); BUN 15 mg/dL (7-18); Bilirubin, Total 0.5 mg/dL (0.2-1.0); CO2 26.8 mmol/L (21.0-32.0); CREATININE 0.65 mg/dL (0.55-1.02); Calcium 8.5 mg/dL (8.5-10.1); Chloride 95 mmol/L (98-107); Glucose 106 mg/dL (74-106); Magnesium 1.8 mg/dL (1.8-2.4); Potassium 3.2 mmol/L (3.5-5.1); Sodium 130 mmol/L (136-145); Total Protein 6.2 g/dL (6.4-8.2); Troponin I 0.06 ng/mL (<0.06)
[2019-11-29 10:25] LABS: Prothrombin Time 10.2 sec (9.3-11.0)
[2019-11-29] MEDS: POTASSIUM CHLORIDE 20 MEQ/100 ML BAG 50 MEQ IVPB (10:41)
[2019-11-29 10:56] LABS: Absolute Eosinophil Count 0.08 10^3/uL (0.0-0.7); Absolute Lymphocyte Count 0.76 10^3/uL (1.2-3.4); Absolute Monocyte Count 0.04 10^3/uL (0.1-0.8); Absolute Neutrophil Count 1.06 10^3/uL (1.2-6.7); Atypical Lymphocytes % 2; Bands % 3
[2019-11-29 10:57] LABS: Diff Comment Manual Differential; RBC Morphology Normal
[2019-11-29] MEDS: Normal Saline 1,000 ML 125 ML IV ×2 (12:00→20:00)
[2019-11-29 13:47] LABS: Troponin I 0.06 ng/mL (<0.06)
[2019-11-29] MEDS: Potassium Chloride 20 MEQ TABCR PO (14:47)
--- NOTE | 2019-11-29 15:58 | W.PM.HP.N ---
Date of service: 11/29/19 Time of Service: 15:58 Assessment and Plan Assessment and plan (1) Acute pulmonary embolism: Status: Acute Assessment and plan: In setting of malignancy. Will continue lovenox initiated in ED. Will monitor on tele. Will check orthostatics and ambulatory pulse ox. Encourage pulmonary toileting. (2) Neutropenia: Status: Acute Assessment and plan: s/p neulasta. No indication for abx at this time. Monitor for a fever. (3) Diffuse large B cell lymphoma: Status: Acute Assessment and plan: Likely the cause of PE. On chemo. Will need to follow up with her hem/onc as outpatient. (4) Syncope: Status: Resolved Assessment and plan: In setting of PE. Check orthostatics. Will hydrate while inpatient. (5) Hypertension: Status: None Assessment and plan: Will hold Triamterene/HCTZ and place holding parameters on metoprolol today. (6) Hypokalemia: Status: Acute Assessment and plan: Replete, check mag, and recheck in am (7) Depression: Status: None Assessment and plan: Continue venlafaxine. (8) Discharge planning issues: Status: Acute Assessment and plan: Full code Expected to be discharged home tomorrow History of Present Illness History of Present Illness Chief Complaint: Chest pressure on inspiration Narrative: Ms Whaley is a 74 year old female with PMHx of diffuse large B-cell lymphoma on R-CHOP/ONPRO, last tx on 11/23/2019 (2nd cycle) , s/p neulasta, as well as h/o HTN, dislipidemia, and depression, who was seen in our ED on 11/28/2019 after having a syncopal episode on getting up from a toilet after urination. At the time, she felt diaphoretic and had chest pressure. Her workup included a CTA of the chest, for which the preliminary read was negative, an indeterminate but flat troponin, and was otherwise unremarkable, so she was discharged home. Today, the final read of the CTA became available and, in fact, the patient does have a PE in her LLL. The patient endorsed chest pressure on inhalation to the ED provider. She already had an echo and venous dopplers. Echo did not reveal R heart strain, and venous dopplers were negative. The patient was initiated on full dose lovenox. Her hem/onc doctor was consulted (Dr Sullivan) and recommended transitioning to a DOAC that the patient's insurance covers at the time of discharge. We were asked to admit the patient for further care. Review of Systems Narrative: Additionally, the patient denies fever, cough. Endorses feeling tired/exhausted, jittery, and having palpitations. All systems reviewed & are unremarkable except as noted in HPI and below PFSH Medical History (Updated 11/29/19 @ 17:27 by Swati Webb MD) Depression Diffuse large B cell lymphoma Hypertension Surgical History (Updated 11/29/19 @ 17:23 by Swati Webb MD) Port-A-Cath in place infusaport S/P lymph node biopsy Family History (Updated 11/29/19 @ 17:25 by Swati Webb MD) Father Heart disease Cancer lung Mother Diabetes Cancer breast Brother Hypertension Cancer lymphoma Sister Hypertension Cancer breast Niece Cancer ? type Social History Smoking/Tobacco Use Status: Former Tobacco Use Alcohol Intake: never Drug use: Never Substance use type: does not use Do you feel safe at home: Yes Do you feel safe in your relationship?: Yes Meds Home Medications and Allergies Home Medications Medication Instructions Recorded Confirmed Type lovastatin 40 mg PO DAILY tab-cap 08/02/12 11/29/19 History triamterene-hydrochlorothiazid 1 tab-cap PO DAILY tab-cap 08/02/12 11/29/19 History metoprolol succinate 25 mg PO DAILY 01/26/14 11/29/19 History zolpidem 10 mg PO HS PRN PRN 01/26/14 11/29/19 History ergocalciferol (vitamin D2) 2,000 unit PO DAILY 11/02/16 11/29/19 History venlafaxine 100 mg PO DAILY 08/12/17 11/29/19 History Allergies Allergy/AdvReac Type Severity Reaction Status Date / Time amlodipine AdvReac Severe Unverified 11/29/19 09:24 lisinopril AdvReac Severe cough Unverified 11/29/19 09:24 suvorexant [From [facility]] AdvReac Severe Unverified 11/29/19 09:24 Exam Narrative Exam Narrative: General: Very pleasant middle-aged female, A&Ox3, no visible tachypnea/dyspnea, able to complete full sentences without issue, tearful when talking about recent of her niece Neurological: A&OX3, no focal deficits Psychiatric: appropriate speech pattern/content Skin: Visible skin intact HEENT: Atraumatic, normocephalic, EOMI, MMM, clear oropharynx, no submandibular or cervical lymphadenopathy that I can definitively palpate, no goiter or JVD Cardiovascular: RRR, slightly tachycardic, no m/r/g Lungs: CTAB Gastrointestinal: soft, nontender, nondistended Genitourinary: deferred Extremities: no e/c/c BLE's Results Imaging Additional studies: CTA chest (yesterday): Findings of a pulmonary embolus in a branch of the pulmonary artery to the left lower lobe as described above. Venous dopplers BLE's: Right: Negative for DVT Left: Negative for DVT Echo: Left Ventricle The left ventricle is normal size. The left ventricular systolic function is normal. The left ventricular ejection fraction is within the normal range. There is normal left ventricular wall thickness. There is normal LV segmental wall motion. There is no ventricular septal defect visualized. LVEF is 60%. Right Ventricle Right ventricle is not well visualized. Right ventricular systolic function could not be assessed. The RVSP is 22.5 mmHg. Atria The left atrium size is normal. Right atrium is not well visualized. The interatrial septum is intact with no evidence for an atrial septal defect. Aortic Valve The Aortic valve is sclerotic. Aortic valve is trileaflet. There is no aortic valvular stenosis. Trace to mild aortic regurgitation. Mitral Valve Mild mitral annular calcification. No evidence of mitral valve stenosis. Trace mitral regurgitation. Tricuspid Valve The tricuspid valve is normal in structure. There is no tricuspid valve stenosis. Trace tricuspid regurgitation. Pulmonic Valve Pulmonic valve is not well visualized. There is no pulmonic valvular stenosis. There is no pulmonic valvular regurgitation. Great Vessels The aortic root is normal in size. The ascending aorta is mildly Aortic arch is not well visualized.dilated. IVC is normal in size and collapses >50% with inspiration. Pericardium There is no pericardial effusion. CXR: No acute pulmonary findings. EKG: HR 103, Sinus tach, nonspecific ST-T changes Labs Result diagrams: 11/29/19 09:50 11/29/19 09:50 Labs: Laboratory Results - last 24 hr 11/29/19 11/29/19 11/29/19 09:50 09:50 09:50 WBC 2.00 L D RBC 3.55 L Hgb 10.2 L Hct 29.7 L MCV 83.7 D MCH 28.7 MCHC 34.3 RDW 14.3 Plt Count MPV 10.3 Immature Gran % 0.0 Neutrophils % 50.0 Band Neutrophils % 3 Lymphocytes % 36.0 Atypical Lymphs % 2 Monocytes % 2.0 Eosinophils % 4.0 Basophils % 3.0 Nucleated RBC % 0 Absolute Neutrophils 1.06 L Absolute Lymphocytes 0.76 L Absolute Monocytes 0.04 L Absolute Eosinophils 0.08 Absolute Basophils 0.06 RBC Morphology Normal PT 10.2 INR 1.0 APTT 25.0 D Sodium 130 L Potassium 3.2 L Chloride 95 L Carbon Dioxide 26.8 Anion Gap 8.2 BUN 15 Creatinine 0.65 Estimated GFR/1.73 m2 >= 60.00 Glucose 106 Calcium 8.5 Magnesium 1.8 Total Bilirubin 0.5 AST 17 ALT 20 Alkaline Phosphatase 114 Troponin I 0.06 Total Protein 6.2 L Albumin 3.3 L 11/29/19 13:15 WBC RBC Hgb Hct MCV MCH MCHC RDW Plt Count MPV Immature Gran % Neutrophils % Band Neutrophils % Lymphocytes % Atypical Lymphs % Monocytes % Eosinophils % Basophils % Nucleated RBC % Absolute Neutrophils Absolute Lymphocytes Absolute Monocytes Absolute Eosinophils Absolute Basophils RBC Morphology PT INR APTT Sodium Potassium Chloride Carbon Dioxide Anion Gap BUN Creatinine Estimated GFR/1.73 m2 Glucose Calcium Magnesium Total Bilirubin AST ALT Alkaline Phosphatase Troponin I 0.06 Total Protein Albumin Last Vital Signs Temp 36.2 C L 11/29/19 14:34 Pulse 92 H 11/29/19 14:34 Resp 16 11/29/19 14:34 BP 113/73 11/29/19 14:34 Pulse Ox 97 11/29/19 14:34 COVID-19 Screening Have you,or household,traveled outside [place] in last 14 days?: No Had IN PERSON contact w/suspected or confirmed C-19 person: No
[2019-11-29] MEDS: Lovastatin 40 MG TAB PO (20:18)
[2019-11-29] MEDS: Zolpidem 10 MG TAB PO (21:43)
[2019-11-30] VITALS (8 sets, daily range): BP systolic 115–143; BP diastolic 68–84; PULSE 87–158; RESP 15–18; TEMP 36–37; O2SAT 93–99
[2019-11-30] MEDS: Normal Saline 1,000 ML 125 ML IV ×2 (02:36→10:29)
[2019-11-30 08:14] LABS: COVID-19 RT-PCR UVMMC Result Negative (Negative)
[2019-11-30 08:22] LABS: Abs Immature Grans 0.01 10^3/uL (0.0-0.06); Absolute Basophil Count 0.02 10^3/uL (0.0-0.2); HCT 28.4 % (36.0-46.0); HGB 9.4 g/dL (11.2-15.7); MCH 28.7 pg (27.0-33.0); MCHC 33.1 % (32.0-36.0); MCV 86.9 fL (80-95); MPV 10.5 fL (8.0-11.0); Nucleated RBC 0 %; RBC 3.27 10^6/uL (3.93-5.22); RDW 14.2 % (11.7-14.6); RDW-SD 45.2 fL
[2019-11-30 08:48] LABS: Anion Gap 9.7 mmol/L (3-11); BUN 8 mg/dL (7-18); CO2 24.3 mmol/L (21.0-32.0); CREATININE 0.65 mg/dL (0.55-1.02); Calcium 7.9 mg/dL (8.5-10.1); Chloride 104 mmol/L (98-107); Glucose 101 mg/dL (74-106); Magnesium 1.6 mg/dL (1.8-2.4); Potassium 3.3 mmol/L (3.5-5.1); Sodium 138 mmol/L (136-145)
[2019-11-30 08:50] LABS: Troponin I 0.11 ng/mL (<0.06)
[2019-11-30] MEDS: Cholecalciferol (Vitamin D3) 1,000 UNIT TAB 2000 UNITS PO (09:01)
[2019-11-30] MEDS: Venlafaxine 50 MG TAB 100 MG PO (09:01)
[2019-11-30] MEDS: Metoprolol CR 50 MG TABCR 25 MG PO (09:01)
[2019-11-30 09:03] LABS: WBC 1.01 10^3/uL (4.4-10.8)
[2019-11-30 09:04] LABS: Absolute Eosinophil Count 0.18 10^3/uL (0.0-0.7); Absolute Lymphocyte Count 0.41 10^3/uL (1.2-3.4); Absolute Monocyte Count 0.12 10^3/uL (0.1-0.8); Absolute Neutrophil Count 0.23 10^3/uL (1.2-6.7); Atypical Lymphocytes % 1
[2019-11-30 09:05] LABS: Diff Comment Manual Differential; Platelet Count 155 10^3/uL (130-400); RBC Morphology Normal
--- NOTE | 2019-11-30 09:45 | RT.EKG_ITS ---
APPROVED REPORT Exam: Resting ECG Patient Location: I HR:110 bpm ECG Measurements Heart Rate 110 AXIS IA 170 P 40 QRSd 86 QRS -23 QT 332 T 29 QTc 450 Conclusion Sinus tachycardia...rate> 99 Inferior infarct, old...Q >35mS, II III aVF
[2019-11-30] MEDS: MAGNESIUM SULFATE 2 GM/50 ML BAG IVPB (10:32)
[2019-11-30] MEDS: Potassium Chloride 20 MEQ TABCR 40 MEQ PO (10:39)
[2019-11-30] MEDS: Enoxaparin 80 MG/0.8 ML SYR SC ×2 (10:40→21:53)
--- NOTE | 2019-11-30 12:00 | W.NUTRFU ---
Date of service: 11/30/19 Time of Service: 12:00 Nutritional Follow up NOTE: 74 year old female admitted with syncope with PE. PMH: diffuse large B cell lymphoma on neutropenic precautions. BMI indicates class 1 obesity and has been stable > 1 year. PO intake adequate and meeting nutrition and fluid needs. Will continue to follow. Time Spent in Nutritional Counseling and Treatment: 0 time spent face to face
--- NOTE | 2019-11-30 12:46 | PDOC.CMIN ---
- If Service Date Differs Date of service: 11/30/19 Time of Service: 12:46 Care Management Initial Assess REASON FOR HOSPITALIZATION:: LLL PE PAST MEDICAL HISTORY/PAST SURGICAL HISTORY:: Medical History. Depression. Diffuse large B cell lymphoma. Hypertension. Surgical History. Port-A-Cath in place. infusaport. S/P lymph node biopsy PREVIOUS FUNCTIONAL STATUS/SOCIAL/FAMILY SUPPORTS:: Tierra lives with her , Chente in [facility]. 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 They moved to [place] to retire close to their grand daughter, who is now 13. She is receiving cancer treatments at [facility] currently. She is independent with her ADL's. CURRENT FUNCTIONAL STATUS:: Tierra was sitting up in her chair when CM met with her. Her was in the room visiting. She reported that she is feeling good, and is hoping to go home as soon as possible. Per report, she will have a Cardio consult today, as well as an EKG. CM will continue to follow. ADVANCE DIRECTIVES:: None on file at [facility]. Has patient been provided with info about the portal/API?: No Did the patient sign up for the portal?: No CODE STATUS:: Full Code INSURANCE COVERAGE / FINANCIAL ISSUES:: [facility]- Commercial MCR replacement. Financial assist 100%. CURRENT HOME/COMMUNITY SERVICES/EQUIPMENT:: No current equipment. Cancer treatment through [facility]. PRIMARY CARE PHYSICIAN:: Janeth Tillman POTENTIAL DISCHARGE NEEDS:: Evaluations for further needs, follow up appointments. PATIENT/FAMILY EDUCATION NEEDS:: Review discharge instructions regarding activity levels and medications, discussion of self care needs including ask me three. ANTICIPATED BARRIERS TO DISCHARGE:: None identified at this time. TRANSPORTATION:: Via private vehicle by family. PLAN:: Anticipate Tierra will return home when medically cleared, likely with no new services. Her will drive her home via private vehicle. She will follow up with her PCP, Oncologist, and discharge plan of care. CM will continue to follow.
[2019-11-30 13:34] LABS: Troponin I 0.11 ng/mL (<0.06)
--- NOTE | 2019-11-30 14:48 | CHAPLAIN ---
Tierra was sitting up, visiting with her when I stopped in. I explained my role and offered support. They were both pleasant, but not interested in further conversation.
--- NOTE | 2019-11-30 15:19 | PHA.REVIEW ---
Pharmacy Admission Review - Admission Clinical Review (Last Updated 11/29/19 @ 17:23 by Swati Webb MD) Hypokalemia (Acute) Neutropenia (Acute) Discharge planning issues (Acute) Diffuse large B cell lymphoma (Acute) Acute pulmonary embolism (Acute) amlodipine Adverse Reaction (Severe, Unverified 11/29/19 09:24) lisinopril Adverse Reaction (Severe, Unverified 11/29/19 09:24) cough suvorexant [From [facility]] Adverse Reaction (Severe, Unverified 11/29/19 09:24) Height 5 ft Weight 76.5 kg - Renal Dosing Renal Dosing: BUN 8 mg/dL (7-18) D 11/30/19 07:50 Creatinine 0.65 mg/dL (0.55-1.02) 11/30/19 07:50 Medications needing adjustments: Reviewed - Anticoagulation Anticoagulation: Hgb 9.4 g/dL (11.2-15.7) L 11/30/19 07:50 Hct 28.4 % (36.0-46.0) L 11/30/19 07:50 Plt Count 155 10^3/uL (130-400) D 11/30/19 07:50 INR 1.0 (0.9-1.1) 11/29/19 09:50 Creatinine 0.65 mg/dL (0.55-1.02) 11/30/19 07:50 - Opiate Usage Evaluate Pain Scale/Pains Meds: N/A - Relevant Labs Sodium 138 mmol/L (136-145) 11/30/19 07:50 Potassium 3.3 mmol/L (3.5-5.1) L 11/30/19 07:50 Chloride 104 mmol/L (98-107) 11/30/19 07:50 Magnesium 1.6 mg/dL (1.8-2.4) L 11/30/19 07:50 Electrolytes, C-Reactive P, ESR: Reviewed (40 meq K+ PO, 2gm IV Mag given today) - DM Control DM Control: Glucose 101 mg/dL (74-106) 11/30/19 07:50 Insulin Dosing: N/A - Heart Failure/NY Heart Failure/NY: Troponin I 0.11 ng/mL (<0.06) H* 11/30/19 12:45 EF%, MARTIN's, B-Blockers, Diuretics: Reviewed - BP Control BP Control: Blood Pressure 118/71 Blood Pressure 134/77 Blood Pressure 121/70 If elevated: Reviewed - Qtc Review If Elevated: Reviewed List meds needing interventions: 431 on admission - Home Meds Relevent Home Meds Not ordered & why?: spoke with pt's pharmacy directly and only meds filled there are potassium, zolpidem 5mg, a prednisone rx to be taken on days getting chemo, allopurinol, prochlorperazine prn -- pharmacy dose not have record of other rxs on pt's med list with us, will reconcile with pcp Janeth Tillman in the AM - Current meds Current Medication Order Review: Reviewed
--- NOTE | 2019-11-30 18:08 | PGE_ITS ---
Date of Service Date of service: 11/30/19 Time of Service: 18:08 Assessment and Plan Assessment and plan (1) Acute pulmonary embolism: Status: Acute Assessment and plan: In setting of malignancy. Continue lovenox and monitoring on tele. Given absence of R heart strain on echo yesterday, I doubt that tachycardia today is related to this. I am requesting that orthostatics be checks now. Does not appear to be requiring oxygen on ambulation (amb. pulse ox 93% on RA). Educated on pulmonary toileting. (2) Neutropenia: Status: Acute Assessment and plan: s/p neulasta. Worse today. No fever. Will recheck in an. If ANC worse, will speak with hem/onc re possible neupogen. No indication for abx at this time. Monitor for a fever. (3) Elevated troponin: Status: Acute Assessment and plan: In setting of sinus tachycardia. No evidence of right heart strain on echo. No ACS. I think this is tachycardia related. Will increase beta blockade. Monitor on tele. (4) Diffuse large B cell lymphoma: Status: Acute Assessment and plan: Likely the cause of PE. On chemo. Will need to follow up with her hem/onc as outpatient. (5) Syncope: Status: Resolved Assessment and plan: In setting of PE. Check orthostatics. The patient is clinically euvolemic at this time. (6) Hypertension: Status: None Assessment and plan: Continue to hold Triamterene/HCTZ while we are increasing metoprolol due to the tachycardia (7) Hypokalemia: Status: Acute Assessment and plan: Replete, check mag, and recheck in am (8) Depression: Status: None Assessment and plan: Continue venlafaxine. (9) Discharge planning issues: Status: Acute Assessment and plan: Full code Expected to be discharged home tomorrow Subjective Subjective Interval history since last seen: Ms Whaley states that she is feeling better today. She does not have as much pressure in her chest or shortness of breath. She is unaware of her rapid heart rate this morning (up to 150's at rest, asymptomatic). She denies dizziness, nausea, diarrhea. She states that she would like to have all her infusions and lab draws through the port. Exam Narrative Exam Narrative: General: Very pleasant middle-aged female, A&Ox3, no visible tachypnea/dyspnea, Anxious HEENT: EOMI, MMM Cardiovascular: RRR, slightly tachycardic, no m/r/g Lungs: CTAB Gastrointestinal: soft, nontender, nondistended Extremities: no e/c/c BLE's Objective Last Vital Signs Temp 36.0 C L 11/30/19 11:05 Pulse 108 H 11/30/19 11:05 Resp 16 11/30/19 11:05 BP 118/71 11/30/19 11:05 Pulse Ox 97 11/30/19 11:05 Laboratory Results - last 24 hr 11/29/19 11/30/19 11/30/19 13:35 07:50 07:50 WBC 1.01 L* D RBC 3.27 L Hgb 9.4 L Hct 28.4 L MCV 86.9 D MCH 28.7 MCHC 33.1 RDW 14.2 Plt Count 155 D MPV 10.5 Immature Gran % 0.0 Neutrophils % 23.0 Lymphocytes % 40.0 Atypical Lymphs % 1 Monocytes % 12.0 Eosinophils % 18.0 Basophils % 2.0 Nucleated RBC % 0 Absolute Neutrophils 0.23 L* Absolute Lymphocytes 0.41 L Absolute Monocytes 0.12 Absolute Eosinophils 0.18 Absolute Basophils 0.02 RBC Morphology Normal Sodium 138 Potassium 3.3 L Chloride 104 Carbon Dioxide 24.3 Anion Gap 9.7 BUN 8 D Creatinine 0.65 Estimated GFR/1.73 m2 >= 60.00 Glucose 101 Calcium 7.9 L Magnesium 1.6 L Troponin I 0.11 H* COVID-19 PCR Negative Nasopharyn COVID-19 PCR Not Applicable Ref Test Perform Site [facility] 11/30/19 12:45 WBC RBC Hgb Hct MCV MCH MCHC RDW Plt Count MPV Immature Gran % Neutrophils % Lymphocytes % Atypical Lymphs % Monocytes % Eosinophils % Basophils % Nucleated RBC % Absolute Neutrophils Absolute Lymphocytes Absolute Monocytes Absolute Eosinophils Absolute Basophils RBC Morphology Sodium Potassium Chloride Carbon Dioxide Anion Gap BUN Creatinine Estimated GFR/1.73 m2 Glucose Calcium Magnesium Troponin I 0.11 H* COVID-19 PCR Nasopharyn COVID-19 PCR Ref Test Perform Site
[2019-11-30] MEDS: Lovastatin 40 MG TAB PO (20:26)
[2019-11-30] MEDS: Metoprolol 25 MG TAB PO (20:26)
[2019-11-30] MEDS: Zolpidem 10 MG TAB PO (21:54)
[2019-11-30] MEDS: Normal Saline Flush 10 ML SYR IVP (21:54)
[2019-12-01 00:49] VITALS: BP 109/73; PULSE 85; RESP 17; TEMP 36.5; O2SAT 98
[2019-12-01 03:15] VITALS: BP 116/73; PULSE 90; RESP 18; TEMP 36; O2SAT 97
[2019-12-01 07:39] LABS: Anion Gap 10.7 mmol/L (3-11); BUN 6 mg/dL (7-18); CO2 23.3 mmol/L (21.0-32.0); CREATININE 0.66 mg/dL (0.55-1.02); Chloride 104 mmol/L (98-107); Glucose 98 mg/dL (74-106); Magnesium 1.9 mg/dL (1.8-2.4); Potassium 3.5 mmol/L (3.5-5.1); Sodium 138 mmol/L (136-145)
[2019-12-01 07:40] VITALS: BP 117/73; PULSE 90; RESP 18; TEMP 36.3; O2SAT 96
[2019-12-01 08:17] LABS: Abs Immature Grans 0.06 10^3/uL (0.0-0.06); Absolute Monocyte Count 0.31 10^3/uL (0.1-0.8); HCT 26.6 % (36.0-46.0); HGB 8.6 g/dL (11.2-15.7); MCH 28.3 pg (27.0-33.0); MCHC 32.3 % (32.0-36.0); MCV 87.5 fL (80-95); MPV 10.8 fL (8.0-11.0); Nucleated RBC 0 %; RBC 3.04 10^6/uL (3.93-5.22); RDW 14.2 % (11.7-14.6); RDW-SD 45.4 fL
[2019-12-01 08:39] LABS: Bands % 2
[2019-12-01 08:40] LABS: Absolute Lymphocyte Count 0.73 10^3/uL (1.2-3.4); Platelet Count 128 10^3/uL (130-400)
[2019-12-01 08:41] LABS: Absolute Basophil Count 0.05 10^3/uL (0.0-0.2); Absolute Eosinophil Count 0.25 10^3/uL (0.0-0.7); Metamyelocytes % 1
[2019-12-01 08:42] LABS: Absolute Neutrophil Count 0.46 10^3/uL (1.2-6.7); Diff Comment Manual Differential; RBC Morphology Normal; WBC 1.82 10^3/uL (4.4-10.8)
[2019-12-01] MEDS: Venlafaxine 50 MG TAB 100 MG PO (08:54)
[2019-12-01] MEDS: Cholecalciferol (Vitamin D3) 1,000 UNIT TAB 2000 UNITS PO (08:54)
[2019-12-01] MEDS: Metoprolol 25 MG TAB PO (08:54)
--- NOTE | 2019-12-01 09:06 | NUR.NOTE ---
Nursing Note: PT W/R UPPER CHEST PORT. PATENT W/GOOD BLOOD RETURN. LABS DRAWN USING 10CC STERILE SYRINGE. PORT FLUSHED AND SECURED.
--- NOTE | 2019-12-01 10:14 | W.PM.DS.N ---
Date of service: 12/01/19 Time of Service: 10:14 DS: Diagnosis Discharge Diagnosis (1) Acute pulmonary embolism: Status: Acute (2) Neutropenia: Status: Acute (3) Elevated troponin: Status: Acute Asessment and Plan: Indeterminate range; no evidence of ACS or R heart strain. Likely related to sinus tachycardia. (4) Sinus tachycardia: Status: Resolved (5) Diffuse large B cell lymphoma: Status: Acute (6) Syncope: Status: Resolved (7) Hypertension: Status: Chronic (8) Hypokalemia: Status: Resolved (9) COVID-19 ruled out by laboratory testing: Status: Ruled-out Discharge Plan Disposition Patient Disposition: HOME Condition: Stable Discharge Details Reason For Visit: LLL PE, NEUTROPENIA Admit Date/Time: 11/30/19 18:15 Admit Provider: Swati Webb Attending Provider: Swati Webb Primary Care Provider: Janeth Tillman [facility] Course Hospital Course: Ms Whaley is a 74 year old female with PMHx of large B cell lymphoma, on chemo as well as neulasta, hypertension, dislipidemia, and depression, who was a patient on [facility] hospitalist service from 11/29/2019 until 12/01/2019 for an acute PE and neutropenia without evidence of infection. The patient had actually presented to [facility] ED on 11/28/2019 after a post-micturation syncope, at which time the CTA of the chest was obtained, which was originally read as negative, but then over-read as having a LLL PE. The patient was initiated on therapeutic lovenox. Her Echo did not reveal R heart strain. Her venous dopplers of BLEs were negative for a DVT. Importantly, the patient was not orthostatic, and so vasovagal mechanism for the syncope on 11/28/2019 is still likely. We did note the patient having an intermediate-range troponin I, but no changes on the EKG or findings on the echo suggestive of underlying CAD or, again, R heart strain. Rather, we think the intermediate troponin was due to slight demand from sinus tachycardia (up to 140s -150s at rest) without another cause. Her toprol XL was doubled from 25 mg to 50 mg with resolution of tachycardia. Her chest pressure on inspiration has resolved. She is being discharged home on therapeutic eliquis (pending care management verification of insurance coverage thereof). As far as her neutropenia, this was expected given the timing of her chemo, [place] [facility] [place] The lowest her ANC got was 0.23. It since then started to improve (0.46 on the day of discharge). The patient has had no fever or sign of infection and is not receiving antibiotics at the time of discharge. We would like for her to follow up with her PCP Dr Tillman and her Dr Sullivan of hem/onc within 1 week. Care for patient as well as completion of her discharge summary took 45 minutes on the day of discharge. Home Meds and New Rx's Prescriptions: New Eliquis 5 mg tablet See Rx Instructions .ROUTE .COMPLEX Qty: 70 RF: 0 acetaminophen [Tylenol] 325 mg Tablet 650 mg PO Q4H PRN PRN30 Days RF: 0 Continued lovastatin 20 MG tablet 40 mg PO DAILY RF: 0 potassium chloride 20 mEq tablet,ER particles/crystals 20 meq PO DAILY RF: 0 zolpidem 10 MG tablet 5 mg PO HS PRN PRNRF: 0 ergocalciferol (vitamin D2) 2,000 UNIT tablet 2,000 unit PO DAILY RF: 0 venlafaxine 50 MG tablet 100 mg PO DAILY RF: 0 allopurinol 300 mg tablet 300 mg PO DAILY RF: 0 Changed metoprolol succinate 50 MG tablet extended release 24 hr 50 mg PO DAILY Qty: 30 RF: 0 Discontinued triamterene-hydrochlorothiazid 1 EACH capsule 1 tab-cap PO DAILY RF: 0 Discharge Instructions Instructions: Apixaban (By mouth), Pulmonary Embolism (DC), Neutropenia (DC) Additional Instructions: Return to the hospital with any fever, bleeding, chest pain, or shortness of breath. Avoid fresh fruits and vegetables until your provider tells you they are again safe to eat. Do not take NSAIDs (motrin/ibuprofen/advil, aleve, etc). Ref[place]: [place]ATOLOG[place],[facility] [place] - Janeth Tillman MD [Primary Care Provider] - Activity:: Activity as Tolerated Equipment/Supplies:: No Equipment Needed Diet:: neutropenic diet Discharge Orders Discharge Orders: Discharge Order (Routine); Ordered 12/01/19 Ordered By: Swati Webb DS: Summary Status at Discharge Functional status at discharge: independent ambulation Overall status at discharge: patient is back to baseline Mental Status: mental status grossly normal Speech and Movement: speech and movement normal Mood: congruent mood Affect: normal affect Exam Narrative Exam Narrative: General: Very pleasant middle-aged female, A&Ox3, no visible tachypnea/dyspnea, looks less anxious today HEENT: EOMI, MMM Cardiovascular: RRR, HR better (high 80s), no m/r/g Lungs: CTAB Gastrointestinal: soft, nontender, nondistended Extremities: no e/c/c BLE's Psych Mental Status: mental status grossly normal Speech and Movement: speech and movement normal Mood: congruent mood Affect: normal affect DS: Data Vitals/I&O Vitals and I&O: Vital Signs Temperature 36.3 C L 12/01/19 07:40 Temperature Source Tympanic 12/01/19 07:40 Pulse 90 12/01/19 07:40 Pulse Rhythm Regular 12/01/19 08:56 Pulse 103 H 11/29/19 13:40 Respiratory Rate 18 12/01/19 07:40 Respiratory Effort Non-Labored 12/01/19 08:56 Respiratory Depth Normal 12/01/19 08:56 Respiratory Pattern Normal 12/01/19 08:56 Blood Pressure 117/73 12/01/19 07:40 Blood Pressure Mean 88 11/29/19 13:30 Blood Pressure Position Sitting 11/29/19 09:18 Pulse Oximetry 96 12/01/19 07:40 Oxygen Delivery Method Room Air 12/01/19 07:40 Oxygen Flow Rate 0 12/01/19 07:40 Pain Level 0 12/01/19 07:40 Comment 11/29/19 17:33 Intake & Output 11/30/19 11/30/19 12/01/19 11:59 23:59 11:59 Intake Total 1810.417 / 2990.000 1179.583 / 2990.000 40 / 40 Output Total 1700 / 1999 300 / 2000 950 / 950 Balance 110.417 / 990.000 879.583 / 990.000 -910 / -910 Weight 76.5 kg 75.6 kg Intake: IV 1810.417 / 2750.000 939.583 / 2750.000 40 / 40 Oral 240 / 240 Output: Urine 1700 / 1999 300 / 2000 950 / 950 Other: Urine Color Yellow Yellow Yellow Urine Appearance Clear Clear Clear Urine Odor None None Normal Comment dark yellow Stool Occult Blood Negative Stool Size Small Stool Characteristics Soft Formed Voiding Methods Toilet Toilet Toilet Data Completed and Pending Completed studies during hospitalization [Text1]: CTA chest 11/28/2019: Findings of a pulmonary embolus in a branch of the pulmonary artery to the left lower lobe as described above. Venous doppler BLEs 11/29/2019: Right: Negative for DVT Left: Negative for DVT CXR 11/29/2019: No acute pulmonary findings. Echo 11/29/2019: Left Ventricle The left ventricle is normal size. The left ventricular systolic function is normal. The left ventricular ejection fraction is within the normal range. There is normal left ventricular wall thickness. There is normal LV segmental wall motion. There is no ventricular septal defect visualized. LVEF is 60%. Right Ventricle Right ventricle is not well visualized. Right ventricular systolic function could not be assessed. The RVSP is 22.5 mmHg. Atria The left atrium size is normal. Right atrium is not well visualized. The interatrial septum is intact with no evidence for an atrial septal defect. Aortic Valve The Aortic valve is sclerotic. Aortic valve is trileaflet. There is no aortic valvular stenosis. Trace to mild aortic regurgitation. Mitral Valve Mild mitral annular calcification. No evidence of mitral valve stenosis. Trace mitral regurgitation. Tricuspid Valve The tricuspid valve is normal in structure. There is no tricuspid valve stenosis. Trace tricuspid regurgitation. Pulmonic Valve Pulmonic valve is not well visualized. There is no pulmonic valvular stenosis. There is no pulmonic valvular regurgitation. Great Vessels The aortic root is normal in size. The ascending aorta is mildly Aortic arch is not well visualized.dilated. IVC is normal in size and collapses >50% with inspiration. Pericardium There is no pericardial effusion. Labs on day of discharge: Labs from last 24 hours 12/01/19 12/01/19 12/01/19 07:55 07:20 07:20 WBC 1.82 L* D Cancelled RBC 3.04 L Cancelled Hgb 8.6 L Cancelled Hct 26.6 L Cancelled MCV 87.5 Cancelled MCH 28.3 Cancelled MCHC 32.3 Cancelled RDW 14.2 Cancelled Plt Count 128 L Cancelled MPV 10.8 Cancelled Immature Gran % See Differential Cancelled Neutrophils % 23.0 Cancelled Band Neutrophils % 2 Cancelled Lymphocytes % 40.0 Cancelled Atypical Lymphs % Cancelled Monocytes % 17.0 Cancelled Eosinophils % 14.0 Cancelled Basophils % 3.0 Cancelled Metamyelocytes % 1 Cancelled Myelocytes % Cancelled Promyelocytes % Cancelled Other Cells % Cancelled Nucleated RBC % 0 Cancelled Absolute Neutrophils 0.46 L* Cancelled Absolute Lymphocytes 0.73 L Cancelled Absolute Monocytes 0.31 Cancelled Absolute Eosinophils 0.25 Cancelled Absolute Basophils 0.05 Cancelled RBC Morphology Normal Cancelled Polychromasia Cancelled Hypochromasia Cancelled Poikilocytosis Cancelled Basophilic Stippling Cancelled Anisocytosis Cancelled Microcytosis Cancelled Macrocytosis Cancelled Spherocytes Cancelled Tear Drop Cells Cancelled Ovalocytes Cancelled Stomatocytes Cancelled [place] Bodies Cancelled Dilma Cells/Echinocytes Cancelled Acanthocytes (Spur) Cancelled Schistocytes Cancelled Sodium 138 Potassium 3.5 Chloride 104 Carbon Dioxide 23.3 Anion Gap 10.7 BUN 6 L Creatinine 0.66 Estimated GFR/1.73 m2 >= 60.00 Glucose 98 Calcium 8.0 L Magnesium 1.9 Troponin I 11/30/19 12:45 WBC RBC Hgb Hct MCV MCH MCHC RDW Plt Count MPV Immature Gran % Neutrophils % Band Neutrophils % Lymphocytes % Atypical Lymphs % Monocytes % Eosinophils % Basophils % Metamyelocytes % Myelocytes % Promyelocytes % Other Cells % Nucleated RBC % Absolute Neutrophils Absolute Lymphocytes Absolute Monocytes Absolute Eosinophils Absolute Basophils RBC Morphology Polychromasia Hypochromasia Poikilocytosis Basophilic Stippling Anisocytosis Microcytosis Macrocytosis Spherocytes Tear Drop Cells Ovalocytes Stomatocytes [place] Bodies [place] Cells/Echinocytes Acanthocytes (Spur) Schistocytes Sodium Potassium Chloride Carbon Dioxide Anion Gap BUN Creatinine Estimated GFR/1.73 m2 Glucose Calcium Magnesium Troponin I 0.11 H* [facility] Medical History (Updated 12/01/19 @ 10:17 by Swati Webb MD) Depression Diffuse large B cell lymphoma Hypertension Surgical History (Updated 11/29/19 @ 17:23 by Swati Webb MD) Port-A-Cath in place infusaport S/P lymph node biopsy Family History (Updated 11/29/19 @ 17:25 by Swati Webb MD) Father Heart disease Cancer lung Mother Diabetes Cancer breast Brother Hypertension Cancer lymphoma Sister Hypertension Cancer breast Niece Cancer ? type Social History Smoking/Tobacco Use Status: Former Tobacco Use Alcohol Intake: never Drug use: Never Substance use type: does not use Do you feel safe at home: Yes Do you feel safe in your relationship?: Yes
[2019-12-01] MEDS: Enoxaparin 80 MG/0.8 ML SYR SC (10:22)
[2019-12-01 11:14] VITALS: BP 95/60; PULSE 97; RESP 19; TEMP 36.4; O2SAT 98
[2019-12-01] MEDS: Heparin 500 UNITS/5 ML SYRINGE (11:55)
[2019-12-01] MEDS: Normal Saline Flush 10 ML SYR IVP (11:55)
--- NOTE | 2019-12-01 17:28 | PDOC.CMDIS ---
- If Service Date Differs Date of service: 12/01/19 Time of Service: 17:28 LACE Index Scoring Tool - Questions: Length of Stay (in days): 2 Acuity (Admit via E.D.?): Yes Comorbidities: Any Tumor E.D. Visits: 2 - Answers: Total Score: 9 Risk of Readmission: Low Risk Care Management Discharge Reason for Hospitalization: LLL PE Discharge Plan: Tierra will return home with no additional services at this time. She will have a new prescription of Eliquis, which contacted the pharmacy regarding. She will have one month free, d/t a coupon from , and her following month will be a large amount (quoted $380 by [facility]), but after that it will be around $47/month. Tierra will have follow up appointments with both her PCP and her oncologist. Her will bring her home via private vehicle. She is happy to be going home. Patient/Family Education Needs: Review discharge instructions regarding activity levels and medication, discussion of self care needs including ask me three.
== END 2019-12-01 12:18 | disposition home or self-care (01) | DRG 176 ==
LOC: ER 13:29 → MS 16:11
PROVIDERS: Admitting Provider Internal Medicine; Emergency Provider Emergency Medicine; PCP Family Medicine; Visit Provider Internal Medicine
DX: I26.99 Other pulmonary embolism without acute cor pulmonale (principal); C83.30 Diffuse large B-cell lymphoma, unspecified site; D70.1 Agranulocytosis secondary to cancer chemotherapy; I10 Essential (primary) hypertension; E78.5 Hyperlipidemia, unspecified; F32.9 Major depressive disorder, single episode, unspecified; R55 Syncope and collapse; E87.6 Hypokalemia; Z87.891 Personal history of nicotine dependence; R74.8 Abnormal levels of other serum enzymes; R00.0 Tachycardia, unspecified; Z11.59 Encounter for screening for other viral diseases
CPT/HCPCS: 36415; 36591; 80048; 80053; 93005; 94618; 96361; 96365; 96366; 96372; 99220; 99232; 99239; 99285; U0003; 71045; 83735; 84484; 85025; 85610; 85730; 93010; 93306; 93970; G0378; J1650; J3480

== ENCOUNTER 2019-12-08 04:14 | Outpatient (CLI) | payer OTHER, SELFPAY ==
--- NOTE | 2019-12-08 | DI.US_ITS ---
EXAM: US UPPER EXTREMITY VENOUS RT CLINICAL HISTORY: LYMPHOMA,C83.31,ACUTE PE,ASSESS RT CHEST PORT AREA FOR CLOT,I26.99. TECHNIQUE: Ultrasound examination of the right upper extremity venous system(s) is performed using g rayscale, color-flow, and spectral Doppler analysis. COMPARISON: No exams were available for comparison FINDINGS: There is no evidence of swelling around the area of the port. The right internal jugular, axillary, subclavian, cephalic, basilic, brachial, radial, and ulnar veins are patent without evidence of throm bosis. IMPRESSION: No evidence of clot around the port. No evidence of thrombosis in the right arm or right neck.. DATA REPOSITORY:
== END 2019-12-08 04:34 ==
PROVIDERS: PCP Family Medicine; Visit Provider Internal Medicine Hematology & Oncology
DX: C83.31 Diffuse large B-cell lymphoma, lymph nodes of head, face, and neck (principal); I26.99 Other pulmonary embolism without acute cor pulmonale; Z95.828 Presence of other vascular implants and grafts
CPT/HCPCS: 93971

== ENCOUNTER 2019-12-14 01:35 | Outpatient (RCR) | payer OTHER, SELFPAY ==
[2019-11-16] MEDS: Normal Saline Flush 10 ML SYR IVP (12:31)
[2019-11-16] MEDS: Heparin 500 UNITS/5 ML SYRINGE IV (12:31)
[2019-11-23 07:27] LABS: Absolute Basophil Count 0.14 10^3/uL (0.0-0.2); Absolute Lymphocyte Count 1.53 10^3/uL (1.2-3.4); Absolute Monocyte Count 0.87 10^3/uL (0.1-0.8); Absolute Neutrophil Count 4.66 10^3/uL (1.2-6.7); Basophils % 1.9; Eosinophils % 1.4; HCT 33.9 % (36.0-46.0); HGB 11.1 g/dL (11.2-15.7); Immature Grans % 1.4; Lymphocytes % 20.7; MCH 28.6 pg (27.0-33.0); MCHC 32.7 % (32.0-36.0); MCV 87.4 fL (80-95); MPV 9.4 fL (8.0-11.0); Monocytes % 11.8; Neutrophils % 62.8; Nucleated RBC 0 %; Platelet Count 462 10^3/uL (130-400); RBC 3.88 10^6/uL (3.93-5.22); RDW 14.4 % (11.7-14.6); RDW-SD 44.6 fL
[2019-11-23] MEDS: Normal Saline Flush 10 ML SYR IVP (07:28)
[2019-11-23 07:52] LABS: ALT 27 U/L (14-59); AST 21 U/L (15-37); Albumin 3.3 g/dL (3.4-5.0); Alkaline Phosphatase 95 U/L (46-116); Anion Gap 11.1 mmol/L (3-11); BUN 9 mg/dL (7-18); Bilirubin, Total 0.3 mg/dL (0.2-1.0); CO2 25.9 mmol/L (21.0-32.0); Calcium 8.7 mg/dL (8.5-10.1); Chloride 99 mmol/L (98-107); Glucose 135 mg/dL (74-106); LDH 212 U/L (81-234); Potassium 3.5 mmol/L (3.5-5.1); Sodium 136 mmol/L (136-145); Total Protein 6.8 g/dL (6.4-8.2); Uric Acid 3.2 mg/dL (2.6-6.0)
[2019-12-14 08:03] LABS: Abs Immature Grans 0.06 10^3/uL (0.0-0.06); Absolute Basophil Count 0.12 10^3/uL (0.0-0.2); Absolute Eosinophil Count 0.14 10^3/uL (0.0-0.7); Absolute Lymphocyte Count 1.23 10^3/uL (1.2-3.4); Absolute Monocyte Count 1.02 10^3/uL (0.1-0.8); Absolute Neutrophil Count 6.03 10^3/uL (1.2-6.7); Basophils % 1.4; Eosinophils % 1.6; HCT 31.4 % (36.0-46.0); HGB 10.7 g/dL (11.2-15.7); Immature Grans % 0.7; Lymphocytes % 14.3; MCH 29.4 pg (27.0-33.0); MCHC 34.1 % (32.0-36.0); MCV 86.3 fL (80-95); MPV 9.8 fL (8.0-11.0); Monocytes % 11.9; Neutrophils % 70.1; Nucleated RBC 0 %; Platelet Count 495 10^3/uL (130-400); RBC 3.64 10^6/uL (3.93-5.22); RDW 16.6 % (11.7-14.6); RDW-SD 50.4 fL
[2019-12-14 08:12] LABS: ALT 26 U/L (14-59); AST 21 U/L (15-37); Albumin 3.5 g/dL (3.4-5.0); Alkaline Phosphatase 91 U/L (46-116); Anion Gap 8.1 mmol/L (3-11); BUN 11 mg/dL (7-18); Bilirubin, Total 0.4 mg/dL (0.2-1.0); CO2 27.9 mmol/L (21.0-32.0); CREATININE 0.87 mg/dL (0.55-1.02); Calcium 8.8 mg/dL (8.5-10.1); Chloride 98 mmol/L (98-107); Glucose 116 mg/dL (74-106); LDH 203 U/L (81-234); Potassium 3.3 mmol/L (3.5-5.1); Sodium 134 mmol/L (136-145); Total Protein 6.9 g/dL (6.4-8.2); Uric Acid 4.1 mg/dL (2.6-6.0)
[2019-12-14] MEDS: Normal Saline Flush 10 ML SYR IVP (09:50)
== END 2019-12-16 23:59 | disposition home or self-care (01) ==
LOC: INF 01:35
PROVIDERS: PCP Family Medicine; Visit Provider Internal Medicine Hematology & Oncology
DX: C83.31 Diffuse large B-cell lymphoma, lymph nodes of head, face, and neck (principal); Z45.2 Encounter for adjustment and management of vascular access device
CPT/HCPCS: 36591; 80053; 83615; 84550; 85025

== ENCOUNTER 2020-01-04 01:32 | Outpatient (RCR) | payer OTHER, SELFPAY ==
[2020-01-04] MEDS: Normal Saline Flush 10 ML SYR IVP (08:34)
[2020-01-04 08:49] LABS: Abs Immature Grans 0.06 10^3/uL (0.0-0.06); Absolute Basophil Count 0.09 10^3/uL (0.0-0.2); Absolute Eosinophil Count 0.06 10^3/uL (0.0-0.7); Absolute Lymphocyte Count 0.63 10^3/uL (1.2-3.4); Absolute Monocyte Count 0.93 10^3/uL (0.1-0.8); Absolute Neutrophil Count 3.35 10^3/uL (1.2-6.7); Basophils % 1.8; Eosinophils % 1.2; HCT 31.5 % (36.0-46.0); HGB 10.5 g/dL (11.2-15.7); Immature Grans % 1.2; Lymphocytes % 12.3; MCH 30.4 pg (27.0-33.0); MCHC 33.3 % (32.0-36.0); MCV 91.3 fL (80-95); MPV 9.4 fL (8.0-11.0); Monocytes % 18.2; Neutrophils % 65.3; Nucleated RBC 0 %; Platelet Count 455 10^3/uL (130-400); RBC 3.45 10^6/uL (3.93-5.22); RDW 18.6 % (11.7-14.6); RDW-SD 60.6 fL; WBC 5.12 10^3/uL (4.4-10.8)
[2020-01-04 09:03] LABS: ALT 26 U/L (14-59); AST 21 U/L (15-37); Albumin 3.6 g/dL (3.4-5.0); Alkaline Phosphatase 93 U/L (46-116); Anion Gap 7.7 mmol/L (3-11); BUN 8 mg/dL (7-18); Bilirubin, Total 0.4 mg/dL (0.2-1.0); CO2 27.3 mmol/L (21.0-32.0); CREATININE 0.86 mg/dL (0.55-1.02); Calcium 8.9 mg/dL (8.5-10.1); Chloride 101 mmol/L (98-107); Glucose 107 mg/dL (74-106); LDH 210 U/L (81-234); Potassium 3.6 mmol/L (3.5-5.1); Sodium 136 mmol/L (136-145); Total Protein 6.9 g/dL (6.4-8.2); Uric Acid 5.9 mg/dL (2.6-6.0)
== END 2020-01-15 23:59 | disposition home or self-care (01) ==
LOC: INF 01:32
PROVIDERS: PCP Family Medicine; Visit Provider Internal Medicine Hematology & Oncology
DX: C83.31 Diffuse large B-cell lymphoma, lymph nodes of head, face, and neck (principal); Z45.2 Encounter for adjustment and management of vascular access device
CPT/HCPCS: 36591; 80053; 83615; 84550; 85025

== ENCOUNTER 2020-01-04 15:02 | Outpatient (REF) | payer OTHER, SELFPAY ==
[2020-01-04 17:09] LABS: Bilirubin Negative (Negative); Blood Negative (Negative); Clarity Clear (Clear); Glucose Negative (Negative); Ketones Negative (Negative); Leukocyte Esterase Trace (Negative); Nitrite Negative (Negative); Specific Gravity 1.015 (1.005-1.025); Urobilinogen 0.2 EU/dL (Up TO 0.2)
[2020-01-04 17:37] LABS: Bacteria Negative HPF (Negative); C & S Indicated? Yes; Casts Negative LPF (Negative); Crystals Negative HPF (Negative); Epithelial Cells Negative HPF (Negative); Mucus Negative (Negative); Other Cells Negative (Negative); RBC Negative HPF (0-2); WBC >50 HPF (0-5)
== END 2020-01-04 15:22 ==
LOC: LBN 15:02
PROVIDERS: PCP Family Medicine; Visit Provider Nurse Practitioner Family
DX: C83.31 Diffuse large B-cell lymphoma, lymph nodes of head, face, and neck (principal); R82.998 Other abnormal findings in urine
CPT/HCPCS: 81003; 81015; 87086

== ENCOUNTER 2020-02-15 02:27 | Outpatient (RCR) | payer OTHER, SELFPAY ==
[2020-01-25] MEDS: Normal Saline Flush 10 ML SYR IVP (08:46)
[2020-01-25 08:51] LABS: Abs Immature Grans 0.07 10^3/uL (0.0-0.06); Absolute Basophil Count 0.11 10^3/uL (0.0-0.2); Absolute Eosinophil Count 0.19 10^3/uL (0.0-0.7); Absolute Lymphocyte Count 0.62 10^3/uL (1.2-3.4); Absolute Monocyte Count 1.21 10^3/uL (0.1-0.8); Absolute Neutrophil Count 4.95 10^3/uL (1.2-6.7); Basophils % 1.5; Eosinophils % 2.7; HGB 10.3 g/dL (11.2-15.7); Lymphocytes % 8.7; MCH 30.7 pg (27.0-33.0); MCHC 33.2 % (32.0-36.0); MCV 92.5 fL (80-95); MPV 9.6 fL (8.0-11.0); Monocytes % 16.9; Neutrophils % 69.2; Nucleated RBC 0 %; Platelet Count 462 10^3/uL (130-400); RBC 3.35 10^6/uL (3.93-5.22); RDW-SD 61.1 fL; WBC 7.15 10^3/uL (4.4-10.8)
[2020-01-25 08:52] LABS: ALT 27 U/L (14-59); AST 25 U/L (15-37); Albumin 3.5 g/dL (3.4-5.0); Alkaline Phosphatase 88 U/L (46-116); Anion Gap 8.8 mmol/L (3-11); BUN 11 mg/dL (7-18); Bilirubin, Total 0.4 mg/dL (0.2-1.0); CO2 27.2 mmol/L (21.0-32.0); CREATININE 0.85 mg/dL (0.55-1.02); Calcium 8.9 mg/dL (8.5-10.1); Chloride 100 mmol/L (98-107); Glucose 112 mg/dL (74-106); Potassium 3.3 mmol/L (3.5-5.1); Sodium 136 mmol/L (136-145); Total Protein 6.8 g/dL (6.4-8.2)
[2020-02-15 07:13] LABS: Abs Immature Grans 0.04 10^3/uL (0.0-0.06); Absolute Basophil Count 0.11 10^3/uL (0.0-0.2); Absolute Eosinophil Count 0.15 10^3/uL (0.0-0.7); Absolute Lymphocyte Count 0.55 10^3/uL (1.2-3.4); Basophils % 1.8; Eosinophils % 2.4; HGB 9.1 g/dL (11.2-15.7); Immature Grans % 0.6; Lymphocytes % 8.8; MCH 32.3 pg (27.0-33.0); MCHC 32.5 % (32.0-36.0); MCV 99.3 fL (80-95); MPV 9.1 fL (8.0-11.0); Monocytes % 17.6; Neutrophils % 68.8; Nucleated RBC 0 %; Platelet Count 376 10^3/uL (130-400); RBC 2.82 10^6/uL (3.93-5.22); RDW 16.6 % (11.7-14.6); RDW-SD 59.7 fL; WBC 6.25 10^3/uL (4.4-10.8)
[2020-02-15] MEDS: Normal Saline Flush 10 ML SYR IVP (07:16)
[2020-02-15 07:27] LABS: ALT 25 U/L (14-59); AST 22 U/L (15-37); Albumin 3.2 g/dL (3.4-5.0); Alkaline Phosphatase 75 U/L (46-116); Anion Gap 7.1 mmol/L (3-11); BUN 11 mg/dL (7-18); Bilirubin, Total 0.3 mg/dL (0.2-1.0); CO2 25.9 mmol/L (21.0-32.0); CREATININE 0.72 mg/dL (0.55-1.02); Calcium 8.5 mg/dL (8.5-10.1); Chloride 104 mmol/L (98-107); Glucose 100 mg/dL (74-106); Potassium 3.8 mmol/L (3.5-5.1); Sodium 137 mmol/L (136-145); Total Protein 6.2 g/dL (6.4-8.2)
== END 2020-02-15 23:59 | disposition home or self-care (01) ==
LOC: INF 02:27
PROVIDERS: PCP Family Medicine; Visit Provider Internal Medicine Hematology & Oncology
DX: C83.31 Diffuse large B-cell lymphoma, lymph nodes of head, face, and neck (principal); Z45.2 Encounter for adjustment and management of vascular access device
CPT/HCPCS: 36591; 80053; 85025

== ENCOUNTER 2020-03-11 09:42 | Outpatient (REF) | payer OTHER, SELFPAY ==
[2020-03-11 14:14] LABS: Magnesium 1.9 mg/dL (1.8-2.4)
[2020-03-11 14:27] LABS: Hemoglobin A1C 5.6 % (<5.7)
[2020-03-11 14:37] LABS: Anion Gap 9.9 mmol/L (3-11); BUN 10 mg/dL (7-18); CO2 25.1 mmol/L (21.0-32.0); Calcium 8.8 mg/dL (8.5-10.1); Chloride 101 mmol/L (98-107); Glucose 106 mg/dL (74-106); Potassium 3.6 mmol/L (3.5-5.1); Sodium 136 mmol/L (136-145)
== END 2020-03-11 10:02 ==
LOC: NCHCN 09:42
PROVIDERS: PCP Family Medicine; Visit Provider Family Medicine
DX: I10 Essential (primary) hypertension (principal); R73.03 Prediabetes
CPT/HCPCS: 80048; 83036; 83735

== ENCOUNTER 2020-03-14 07:55 | Outpatient (RCR) | payer OTHER, SELFPAY ==
[2020-03-14] MEDS: Normal Saline Flush 10 ML SYR IVP (08:11)
[2020-03-14] MEDS: Heparin 500 UNITS/5 ML SYRINGE IVP (08:12)
[2020-03-14 08:17] LABS: Abs Immature Grans 0.02 10^3/uL (0.0-0.06); Absolute Basophil Count 0.12 10^3/uL (0.0-0.2); Absolute Eosinophil Count 0.18 10^3/uL (0.0-0.7); Absolute Lymphocyte Count 0.51 10^3/uL (1.2-3.4); Absolute Monocyte Count 0.95 10^3/uL (0.1-0.8); Basophils % 2.4; Eosinophils % 3.6; HCT 31.6 % (36.0-46.0); HGB 10.3 g/dL (11.2-15.7); Immature Grans % 0.4; Lymphocytes % 10.2; MCH 31.9 pg (27.0-33.0); MCHC 32.6 % (32.0-36.0); MCV 97.8 fL (80-95); MPV 9.6 fL (8.0-11.0); Monocytes % 19.1; Neutrophils % 64.3; Nucleated RBC 0 %; Platelet Count 303 10^3/uL (130-400); RBC 3.23 10^6/uL (3.93-5.22); RDW 14.6 % (11.7-14.6); RDW-SD 52.3 fL; WBC 4.98 10^3/uL (4.4-10.8)
[2020-03-14 08:30] LABS: ALT 26 U/L (14-59); AST 24 U/L (15-37); Albumin 3.5 g/dL (3.4-5.0); Alkaline Phosphatase 78 U/L (46-116); Anion Gap 8.9 mmol/L (3-11); BUN 12 mg/dL (7-18); Bilirubin, Total 0.3 mg/dL (0.2-1.0); CO2 25.1 mmol/L (21.0-32.0); CREATININE 0.82 mg/dL (0.55-1.02); Calcium 8.4 mg/dL (8.5-10.1); Chloride 102 mmol/L (98-107); Glucose 114 mg/dL (74-106); LDH 218 U/L (81-234); Potassium 3.9 mmol/L (3.5-5.1); Sodium 136 mmol/L (136-145); Total Protein 6.7 g/dL (6.4-8.2)
== END 2020-03-17 23:59 | disposition home or self-care (01) ==
LOC: INF 07:55
PROVIDERS: PCP Family Medicine; Visit Provider Internal Medicine Hematology & Oncology
DX: C83.31 Diffuse large B-cell lymphoma, lymph nodes of head, face, and neck (principal); Z45.2 Encounter for adjustment and management of vascular access device
CPT/HCPCS: 36591; 80053; 83615; 85025

== ENCOUNTER 2020-03-14 07:59 | Outpatient (RCR) | payer OTHER, SELFPAY | END 2020-03-17 23:59 | disposition home or self-care (01) | LOC: INF 07:59 | PROVIDERS: PCP Family Medicine; Visit Provider Internal Medicine Hematology & Oncology ==

== ENCOUNTER 2020-04-11 08:00 | Outpatient (RCR) | payer OTHER, SELFPAY ==
[2020-04-11 08:08] LABS: Abs Immature Grans 0.01 10^3/uL (0.0-0.06); Absolute Basophil Count 0.04 10^3/uL (0.0-0.2); Absolute Eosinophil Count 0.19 10^3/uL (0.0-0.7); Absolute Monocyte Count 0.67 10^3/uL (0.1-0.8); Absolute Neutrophil Count 2.75 10^3/uL (1.2-6.7); Basophils % 0.9; Eosinophils % 4.5; HCT 33.9 % (36.0-46.0); Immature Grans % 0.2; Lymphocytes % 14.1; MCH 30.6 pg (27.0-33.0); MCHC 32.4 % (32.0-36.0); MCV 94.4 fL (80-95); MPV 9.8 fL (8.0-11.0); Monocytes % 15.7; Neutrophils % 64.6; Nucleated RBC 0 %; Platelet Count 246 10^3/uL (130-400); RBC 3.59 10^6/uL (3.93-5.22); RDW 12.4 % (11.7-14.6); WBC 4.26 10^3/uL (4.4-10.8)
[2020-04-11 08:21] LABS: ALT 30 U/L (14-59); AST 26 U/L (15-37); Albumin 3.6 g/dL (3.4-5.0); Alkaline Phosphatase 82 U/L (46-116); Anion Gap 9.2 mmol/L (3-11); BUN 15 mg/dL (7-18); Bilirubin, Total 0.5 mg/dL (0.2-1.0); CO2 25.8 mmol/L (21.0-32.0); CREATININE 0.7 mg/dL (0.55-1.02); Calcium 8.6 mg/dL (8.5-10.1); Chloride 104 mmol/L (98-107); Glucose 117 mg/dL (74-106); LDH 206 U/L (81-234); Potassium 3.4 mmol/L (3.5-5.1); Sodium 139 mmol/L (136-145); Total Protein 6.6 g/dL (6.4-8.2)
[2020-04-11] MEDS: Normal Saline Flush 10 ML SYR IVP (08:22)
[2020-04-11] MEDS: Heparin 500 UNITS/5 ML SYRINGE IV (08:23)
== END 2020-04-14 23:59 | disposition home or self-care (01) ==
LOC: INF 08:00
PROVIDERS: PCP Family Medicine; Visit Provider Internal Medicine Hematology & Oncology
DX: C83.31 Diffuse large B-cell lymphoma, lymph nodes of head, face, and neck (principal); Z45.2 Encounter for adjustment and management of vascular access device
CPT/HCPCS: 36591; 80053; 83615; 84550; 85025

== ENCOUNTER 2020-04-16 03:56 | Emergency (ER) | payer OTHER, SELFPAY ==
[2020-04-16] VITALS (36 sets, daily range): BP systolic 121–147; BP diastolic 74–98; PULSE 79–137; RESP 15–39; TEMP 36.3; O2SAT 90–99
--- NOTE | 2020-04-16 03:45 | RT.EKG_ITS ---
APPROVED REPORT Exam: Resting ECG Patient Location: E HR:94 bpm ECG Measurements Heart Rate 94 AXIS MA 144 P 7 QRSd 84 QRS 1 QT 399 T 11 QTc 499 Conclusion Sinus rhythm...normal P axis, V-rate 60- 99 Physician: Rate 94, sinus rhythm, no significant ST elevations or depressions, no evidence of STEMI. Artifact i s present in V3 and V6.
--- NOTE | 2020-04-16 04:00 | DI.CT_ITS ---
EXAM: CT CHEST PE CTA CLINICAL HISTORY: sob, chest pain, loss of taste, hx of PE TECHNIQUE: COMPARISON: CT ABD PELVIS WITH CONTRAST from 11/20/[address] CHEST PE CTA from 11/29/2019 FINDINGS: CT angiography of the chest was performed with intravenous infusion of 65 cc of Visipaque. Images obtained through the upper abdomen show 2 small low-attenuation hepatic lesions stable since O ctober 2016 presumably representing small cysts or hemangiomas. Otherwise liver, spleen pancreas adr enals, left kidney appear intact as visualized. There is mild cardiomegaly. There is ectasia of the ascending aorta at 42 millimeters. There is no pericardial effusion. There are moderate sized bilateral pleural effusions, diffuse pulmonary interstitial edema is also no kirsten. Findings are consistent with CHF. Tracheobronchial tree appears intact. No focal pulmonary mass consolidation identified. No evidence of pulmonary embolic disease. IMPRESSION: No evidence of pulmonary embolic disease. Findings consistent with acute CHF. RADIATION DOSE DELIVERED: 419.3mGy.cm Total DLP
--- NOTE | 2020-04-16 04:13 | W.ED.GENAD ---
Discharge Plan Disposition Patient Disposition: [facility] Condition: Stable Discharge Details Chief Complaint: SOB Clinical Impression: Non-ST elevation NV (NSTEMI), Pleural effusion, Breath shortness, Hypoxemia Primary Care Provider: Janeth Tillman ED Provider: Audi Case Home Meds and New Rx's Prescriptions: No Action lovastatin 20 MG tablet 40 mg PO DAILY RF: 0 zolpidem 10 MG tablet 5 mg PO HS PRN PRNRF: 0 rizatriptan 5 mg Tablet 5 mg PO ONCE MDD may repeat once in two hours PRN (Reason: Migraine Headache) RF: 0 Xarelto 20 mg tablet 20 mg PO DAILY RF: 0 venlafaxine 50 MG tablet 150 mg PO DAILY RF: 0 allopurinol 300 mg tablet 300 mg PO DAILY RF: 0 metoprolol succinate 50 MG tablet extended release 24 hr 50 mg PO DAILY Qty: 30 RF: 0 Medical Decision Making 74-year-old female with a past medical history of diffuse large B-cell lymphoma, previous pulmonary embolism on Eliquis, hypertension, who was last chemotherapy was at [facility], who has received her first round during the Covid shot 3 weeks ago, but not yet received the second. She presents today for evaluation of chest pain, shortness of breath, burning sensation in her right chest, pleuritic chest pain, and loss of taste. Patient states his symptoms have been present for the last 3 days and have been gradually worsening. She has had taste alterations in the past with her chemotherapy but states that this is different. She denies any significant cough or productive sputum. She denies any fever or chills. She denies missing any doses of her Eliquis. She has no history of cardiac disease otherwise. No history of COPD. She smoked many years ago. No other complaints at this time. Exam is relatively unremarkable, O2 saturations are slightly below normal at 93%. Mild pain with inspiration. Mild tachycardia. Differential includes COVID-19, pneumonia, recurrent PE resistant to medical therapy, cardiac etiology. Symptoms seem inconsistent at this time clinically with aortic pathology, meningitis, or pneumothorax. We will get a CTA of the chest, gently rehydrate, evaluate for concerning etiologies and reassess. 7:40 AM Patient's laboratory work-up has returned, VBG stable, electrolytes stable. Troponin elevated at 0.49 proBNP elevated at 3800. EKG shows no evidence of STEMI, no significant ST elevation or depression. CT scan shows evidence of 2 large pleural effusions, mild interstitial edema. No pulmonary emboli. Uncertain as to the cause of the effusions. They may be secondary to a cardiac event or the cause of the cardiac event. Unclear at this time. Patient's chest pain has resolved just now. I did contact [facility] and discussed the case with Dr. Carlton, he agrees with the assessment and plan. He does not recommend heparinization as she is on Eliquis. He does recommend giving a baby 81 mg aspirin. He agrees with the need for transfer. Patient will be transferred to [facility] with a bed is available. I did contact the patient's and discussed the full case with him. He did have questions concerning the current visitation policy, and I did answer them to the best of my ability. Patient will be transferred to [facility]. I have extensively reviewed the treatment plan with the patient. I have addressed all patient concerns at this time. I have also discussed the plan with the admitting physician and they agree with the current assessment and plan and have agreed to assume responsibility for the patient. All parties demonstrate verbal understanding and agreement with our assessment and plan at this time. The documentation in this chart was dictated using Vollee dictation software. Please excuse any dictation errors. At time of transfer the patient was reassessed and continued to demonstrate current medical stability. No signs of acute respiratory distress requiring intubation, hemodynamic instability requiring pressor support, or rapidly declining mental status. The patient is stable for transport. 4:09 AM Rate 94, sinus rhythm, no significant ST elevations or depressions, no evidence of STEMI. Artifact is present in V3 and V6. IMPRESSION: No pulmonary emboli observed Mild to moderate interstitial edema and small pleural effusions Prominent ascending thoracic aorta measuring up to 3.9 cm. [facility] Thank you for allowing us to participate in the care of your patient. Dictated and Authenticated by: Waldemar Newman MD 04/16/2020 6:12 AM Eastern Time ([place] & [place]) HPI General Date/Time Provider Initiated Documentation: 04/16/20 03:58. HPI Narrative: 74-year-old female with a past medical history of diffuse large B-cell lymphoma, previous pulmonary embolism on Eliquis, hypertension, who was last chemotherapy was at [facility], who has received her first round during the Covid shot 3 weeks ago, but not yet received the second. She presents today for evaluation of chest pain, shortness of breath, burning sensation in her right chest, pleuritic chest pain, and loss of taste. Patient states his symptoms have been present for the last 3 days and have been gradually worsening. She has had taste alterations in the past with her chemotherapy but states that this is different. She denies any significant cough or productive sputum. She denies any fever or chills. She denies missing any doses of her Eliquis. She has no history of cardiac disease otherwise. No history of COPD. She smoked many years ago. No other complaints at this time. Related Data Home Medications Medication Instructions Recorded Confirmed lovastatin 40 mg PO DAILY tab-cap 08/02/12 04/16/20 zolpidem 5 mg PO HS PRN PRN 01/26/14 04/16/20 venlafaxine 150 mg PO DAILY 08/12/17 04/16/20 allopurinol 300 mg PO DAILY 11/30/19 11/30/19 metoprolol succinate 50 mg PO DAILY #30 tab 12/01/19 04/16/20 rivaroxaban [Xarelto] 20 mg PO DAILY 04/16/20 04/16/20 rizatriptan 5 mg PO ONCE PRN MDD may repeat 04/16/20 04/16/20 once in two hours Previous Rx's Medication Instructions Recorded metoprolol succinate 50 mg PO DAILY #30 tab 12/01/19 Allergies Allergy/AdvReac Type Severity Reaction Status Date / Time amlodipine AdvReac Severe Unverified 04/16/20 04:55 lisinopril AdvReac Severe cough Unverified 04/16/20 04:55 suvorexant [From Belsomra] AdvReac Severe Unverified 04/16/20 04:55 General Stated Complaint: SOB MARY: 2 Review of Systems All systems reviewed & are unremarkable except as noted in HPI and below PFSH Medical History Depression Diffuse large B cell lymphoma Hypertension Surgical History Port-A-Cath in place infusaport S/P lymph node biopsy Family History Father Heart disease Cancer lung Mother Diabetes Cancer breast Brother Hypertension Cancer lymphoma Sister Hypertension Cancer breast Niece Cancer ? type Social History Smoking/Tobacco Use Status: Former Tobacco Use Smoking risk assessment performed?: Yes Alcohol Intake: never Drug use: Never Substance use type: does not use Do you feel safe at home: Yes Do you feel safe in your relationship?: Yes Exam Narrative Exam Narrative: 1.Const: Well-nourished, Well-developed, appearing stated age 2.Eyes: PERRL, no conjunctival injection, and symmetrical lids. 3.ENT: Atraumatic external nose and ears. Moist MM. Neck: Symmetric, trachea midline, No thyromegaly. 4.CVS: +S1/S2, No murmurs or gallops. Peripheral pulses 2+ and equal in all extremities. Brisk capillary refill in all extremities. 5.RESP: Diminished breath sounds throughout, mild respiratory effort, difficulty taking large deep breaths. No wheezes or rhonchi. 6.GI: Soft, Nontender/Nondistended, No hepatosplenomegaly. No guarding or rebound. 7.MSK: Normocephalic/Atraumatic, Extremities w/o deformity or ttp No cyanosis or clubbing, Normal movement of all extremities, no calf tenderness 8.Skin: Warm, Dry. No rashes or lesions. No evidence of rash under the breast or signs of shingles 9.Neuro: public records researcher II-XII grossly intact. Sensation grossly intact, no focal neurologic deficits. 10.Psych: (AAO) x3. Appropriate mood and affect Course Vital Signs Vital signs: Vital Signs Temperature 36.3 C L 04/16/20 04:05 Pulse 108 H 04/16/20 04:05 Respiratory Rate 15 04/16/20 04:05 Blood Pressure 127/74 04/16/20 04:05 Pulse Oximetry 93 04/16/20 04:05 Temperature 36.3 C L 04/16/20 04:05 Temperature Source Skin 04/16/20 04:05 Pulse 108 H 04/16/20 04:05 Respiratory Rate 15 04/16/20 04:05 Blood Pressure 127/74 04/16/20 04:05 Blood Pressure Position Sitting 04/16/20 04:05 Pulse Oximetry 93 04/16/20 04:05 Oxygen Delivery Method Room Air 04/16/20 04:05 Oxygen Flow Rate 0 04/16/20 04:05 Pain Level 0 04/16/20 04:05
[2020-04-16] MEDS: Normal Saline 500 ML IV (04:25)
[2020-04-16 04:52] LABS: Abs Immature Grans 0.02 10^3/uL (0.0-0.06); Absolute Basophil Count 0.04 10^3/uL (0.0-0.2); Absolute Eosinophil Count 0.13 10^3/uL (0.0-0.7); Absolute Lymphocyte Count 0.78 10^3/uL (1.2-3.4); Absolute Neutrophil Count 4.39 10^3/uL (1.2-6.7); BE (Venous) -2 mmol/L (-2-3); Basophils % 0.6; Eosinophils % 2.1; HCO3 (Venous) 23 mmol/L (23-28); Immature Grans % 0.3; Lymphocytes % 12.5; MCH 30.6 pg (27.0-33.0); MCHC 32.4 % (32.0-36.0); MCV 94.7 fL (80-95); MPV 10.2 fL (8.0-11.0); Monocytes % 14.4; Neutrophils % 70.1; Nucleated RBC 0 %; O2 Sat (Venous) 79 %; Platelet Count 288 10^3/uL (130-400); RBC 3.59 10^6/uL (3.93-5.22); RDW 12.5 % (11.7-14.6); RDW-SD 43.5 fL; TCO2 (Venous) 22 mmol/L (24-29); WBC 6.26 10^3/uL (4.4-10.8); pCO2 (Venous) 40 mmHg (41-51); pH (Venous) 7.37 (7.31-7.41); pO2 (Venous) 47 mmHg
[2020-04-16 05:08] LABS: INR 1.2 (0.9-1.1); PTT Activated 26.5 sec (21.0-27.5); Prothrombin Time 11.6 sec (9.3-11.0)
[2020-04-16 05:24] LABS: ALT 71 U/L (14-59); AST 46 U/L (15-37); Albumin 3.6 g/dL (3.4-5.0); Alkaline Phosphatase 115 U/L (46-116); Anion Gap 12.3 mmol/L (3-11); BUN 12 mg/dL (7-18); Bilirubin, Total 0.5 mg/dL (0.2-1.0); CO2 22.7 mmol/L (21.0-32.0); CREATININE 0.8 mg/dL (0.55-1.02); Calcium 8.8 mg/dL (8.5-10.1); Chloride 101 mmol/L (98-107); Glucose 117 mg/dL (74-106); Lipase 83 U/L (73-393); NT-proBNP 3800 pg/mL (<300); Potassium 3.6 mmol/L (3.5-5.1); Sodium 136 mmol/L (136-145); Total Protein 6.8 g/dL (6.4-8.2)
[2020-04-16 05:26] LABS: Troponin I 0.49 ng/mL (<0.06)
[2020-04-16 05:40] LABS: COVID-19 PCR Negative (Negative); Influenza A PCR Negative (Negative); Influenza B PCR Negative (Negative); RSV PCR Negative (Negative)
[2020-04-16] MEDS: Normal Saline - Diluent 50 ML VIAL IV (05:55)
[2020-04-16] MEDS: Normal Saline Flush 10 ML SYR IVP (05:56)
--- NOTE | 2020-04-16 06:13 | DI.VRAD_ITS ---
PROCEDURE INFORMATION: Exam: CT Angiography Chest With Contrast Exam date and time: 04/16/2020 5:43 AM Age: 74 years old Clinical indication: Shortness of breath; Type not specified; Patient HX: SOB, chest pain, loss of taste, HX of pe TECHNIQUE: Imaging protocol: Computed tomographic angiography of the chest with contrast. 3D rendering (Not supervised by radiologist): MIP and/or 3D reconstructed images were created by the technologist. Radiation optimization: All CT scans at this facility use at least one of these dose optimization techniques: automated exposure control; mA and/or kV adjustment per patient size (includes targeted exams where dose is matched to clinical indication); or iterative reconstruction. Contrast material: VISAPAQUE 350; Contrast volume: 65 ml; Contrast route: INTRAVENOUS (IV); COMPARISON: CT CHEST PE CTA 11/29/2019 12:10 AM FINDINGS: Pulmonary arteries: No pulmonary emboli. Aorta: Prominent ascending thoracic aorta measuring up to 3.9 cm Lungs: Mild to moderate interstitial edema and subsegmental atelectasis Pleural spaces: No pneumothorax. Small pleural effusions. Heart: Mild cardiomegaly. No pericardial effusion. Lymph nodes: Prominent hilar lymph nodes, presumed reactive Bones/joints: Unremarkable. No acute fracture. Soft tissues: Unremarkable. IMPRESSION: No pulmonary emboli observed Mild to moderate interstitial edema and small pleural effusions Prominent ascending thoracic aorta measuring up to 3.9 cm. [facility] Dictated and Authenticated by: Waldemar Newman MD. Ordering:RICHIE Huntley MD
[2020-04-16] MEDS: Aspirin 81 MG CHEW PO (06:58)
[2020-04-16 07:44] LABS: Troponin I 0.48 ng/mL (<0.06)
--- NOTE | 2020-04-16 07:54 | NUR.NOTE ---
Addendum entered by Yoon Haas 04/16/20 08:44: At 0835 I tried the home phone number and spoke with Mr. Whaley. He is now aware that his has been transferred to [facility]. I gave him the unit she will be on and the phone number to that unit. Yoon Haas Original Note: Nursing Note: 0748 called Mr. Whaley to notifiy him of the bed confirmation. A message was left on his phone. Yoon Haas
== END 2020-04-16 08:13 | disposition short-term general hospital (02) ==
PROVIDERS: Emergency Provider Student in an Organized Health Care Education/Training Program; PCP Family Medicine
DX: I21.4 Non-ST elevation (NSTEMI) myocardial infarction (principal); R09.02 Hypoxemia; R06.02 Shortness of breath; J90 Pleural effusion, not elsewhere classified; Z03.818 Encounter for observation for suspected exposure to other biological agents ruled out
CPT/HCPCS: 36415; 71275; 80053; 82805; 83690; 87040; 87637; 93005; 96361; 99285; 83605; 83880; 84484; 85025; 85610; 85730; 93010

== ENCOUNTER 2020-04-26 14:51 | Outpatient (REF) | payer OTHER, SELFPAY ==
[2020-04-26 15:19] LABS: Anion Gap 9.7 mmol/L (3-11); BUN 15 mg/dL (7-18); CO2 27.3 mmol/L (21.0-32.0); CREATININE 0.9 mg/dL (0.55-1.02); Calcium 9.3 mg/dL (8.5-10.1); Chloride 100 mmol/L (98-107); Glucose 108 mg/dL (74-106); Sodium 137 mmol/L (136-145)
== END 2020-04-26 14:52 | disposition home or self-care (01) ==
LOC: NCHCN 14:51
PROVIDERS: PCP Family Medicine; Visit Provider Family Medicine
DX: I10 Essential (primary) hypertension (principal); I50.9 Heart failure, unspecified
CPT/HCPCS: 80048; 83735

== ENCOUNTER 2020-05-09 07:56 | Outpatient (CLI) | payer OTHER, SELFPAY ==
[2020-05-09 08:19] LABS: Abs Immature Grans 0.01 10^3/uL (0.0-0.06); Absolute Basophil Count 0.04 10^3/uL (0.0-0.2); Absolute Eosinophil Count 0.22 10^3/uL (0.0-0.7); Absolute Monocyte Count 0.61 10^3/uL (0.1-0.8); Basophils % 0.9; Eosinophils % 4.9; HCT 36.6 % (36.0-46.0); HGB 11.9 g/dL (11.2-15.7); Immature Grans % 0.2; Lymphocytes % 13.4; MCH 29.8 pg (27.0-33.0); MCHC 32.5 % (32.0-36.0); MCV 91.7 fL (80-95); MPV 9.5 fL (8.0-11.0); Monocytes % 13.6; Nucleated RBC 0 %; Platelet Count 258 10^3/uL (130-400); RBC 3.99 10^6/uL (3.93-5.22); RDW 12.1 % (11.7-14.6); RDW-SD 40.9 fL; WBC 4.48 10^3/uL (4.4-10.8)
[2020-05-09 09:40] LABS: ALT 23 U/L (14-59); AST 20 U/L (15-37); Albumin 3.7 g/dL (3.4-5.0); Alkaline Phosphatase 102 U/L (46-116); Anion Gap 10.2 mmol/L (3-11); BUN 15 mg/dL (7-18); Bilirubin, Total 0.4 mg/dL (0.2-1.0); CO2 26.8 mmol/L (21.0-32.0); CREATININE 0.8 mg/dL (0.55-1.02); Calcium 9.1 mg/dL (8.5-10.1); Chloride 103 mmol/L (98-107); Glucose 106 mg/dL (74-106); LDH 175 U/L (81-234); Potassium 4.3 mmol/L (3.5-5.1); Sodium 140 mmol/L (136-145); Total Protein 6.6 g/dL (6.4-8.2); Uric Acid 5.6 mg/dL (2.6-6.0)
== END 2020-05-09 07:57 | disposition home or self-care (01) ==
PROVIDERS: PCP Family Medicine; Visit Provider Internal Medicine Hematology & Oncology
DX: C83.31 Diffuse large B-cell lymphoma, lymph nodes of head, face, and neck (principal)
CPT/HCPCS: 36415; 80053; 83615; 84550; 85025

== ENCOUNTER 2020-06-13 07:46 | Outpatient (CLI) | payer OTHER, SELFPAY ==
[2020-06-13 08:04] LABS: Abs Immature Grans 0.02 10^3/uL (0.0-0.06); Absolute Basophil Count 0.05 10^3/uL (0.0-0.2); Absolute Lymphocyte Count 0.77 10^3/uL (1.2-3.4); Absolute Monocyte Count 0.77 10^3/uL (0.1-0.8); Absolute Neutrophil Count 3.26 10^3/uL (1.2-6.7); Eosinophils % 3.9; HCT 38.4 % (36.0-46.0); HGB 12.3 g/dL (11.2-15.7); Immature Grans % 0.4; Lymphocytes % 15.2; MCH 28.7 pg (27.0-33.0); MCV 89.7 fL (80-95); MPV 9.5 fL (8.0-11.0); Monocytes % 15.2; Neutrophils % 64.3; Nucleated RBC 0 %; Platelet Count 317 10^3/uL (130-400); RBC 4.28 10^6/uL (3.93-5.22); RDW 12.9 % (11.7-14.6); RDW-SD 42.3 fL; WBC 5.07 10^3/uL (4.4-10.8)
[2020-06-13 08:15] LABS: ALT 31 U/L (14-59); AST 25 U/L (15-37); Albumin 3.9 g/dL (3.4-5.0); Alkaline Phosphatase 120 U/L (46-116); Anion Gap 10.2 mmol/L (3-11); BUN 16 mg/dL (7-18); Bilirubin, Total 0.5 mg/dL (0.2-1.0); CO2 28.8 mmol/L (21.0-32.0); CREATININE 0.9 mg/dL (0.55-1.02); Calcium 9.1 mg/dL (8.5-10.1); Chloride 101 mmol/L (98-107); Glucose 95 mg/dL (74-106); LDH 187 U/L (81-234); Potassium 4.1 mmol/L (3.5-5.1); Sodium 140 mmol/L (136-145); Total Protein 7.2 g/dL (6.4-8.2); Uric Acid 6.4 mg/dL (2.6-6.0)
== END 2020-06-13 07:47 | disposition home or self-care (01) ==
PROVIDERS: PCP Family Medicine; Visit Provider Internal Medicine Hematology & Oncology
DX: C83.31 Diffuse large B-cell lymphoma, lymph nodes of head, face, and neck (principal)
CPT/HCPCS: 36415; 80053; 83615; 84550; 85025

== ENCOUNTER 2020-08-02 02:02 | Outpatient (CLI) | payer OTHER, SELFPAY ==
--- NOTE | 2020-08-02 11:16 | DI.RAD_ITS ---
Exam(s) XR LUMBAR SPINE COMPLETE EXAM: XR LUMBAR SPINE COMPLETE CLINICAL HISTORY: LOW BACK PAIN, M54.5,RT SI JOINT PAIN,M53.3,PET CT 03/2020,NO BONY LESIONS. TECHNIQUE: 2D digital imaging was performed. COMPARISON: CR XR DEXA BONE DENSITY W/WO RODNEY from 02/23/2019 CR XR DEXA BONE DENSITY W/WO RODNEY from 02/23/[address] CHEST PE CTA from 04/16/[address] CHEST PE CTA from 04/16/2020 FINDINGS: There is grade 1 pseudo spondylolisthesis of L4 on L5. There is also grade 1 pseudo spondylolisthesi s of L5 on S1. The vertebral bodies and posterior elements are well maintained. No acute fracture o r subluxation is seen in the lumbar spine. There is disc space narrowing at T12-L1 and L1-L2. There are degenerative changes of the facets at L4-5 and L5-S1. There are 5 lumbar type vertebral bodies. No spondylolysis is present. IMPRESSION: Multilevel degenerative changes in the lumbar spine. DATA REPOSITORY: RADIATION DOSE DELIVERED:
--- NOTE | 2020-08-02 11:17 | DI.RAD_ITS ---
Exam(s) XR SACROILIAC JOINTS EXAM: XR SACROILIAC JOINTS CLINICAL HISTORY: RT SI JOINT, PAIN, M53.3,LYMPHOMA,C85.90. TECHNIQUE: 2D digital imaging was performed. COMPARISON: No exams were available for comparison FINDINGS: Bones: No fracture is present. No bony destructive lesion is seen. Alignment is satisfactory. SI Joint: No fusion, erosions or sclerosis is seen. Soft Tissue: Normal. IMPRESSION: Normal radiographs of the SI Joints. DATA REPOSITORY: RADIATION DOSE DELIVERED:
== END 2020-08-02 02:22 ==
PROVIDERS: PCP Family Medicine; Visit Provider Family Medicine
DX: M47.816 Spondylosis without myelopathy or radiculopathy, lumbar region (principal); M53.3 Sacrococcygeal disorders, not elsewhere classified; C85.90 Non-Hodgkin lymphoma, unspecified, unspecified site
CPT/HCPCS: 72110; 72202

== ENCOUNTER 2020-11-21 03:29 | Outpatient (CLI) | payer OTHER, SELFPAY ==
[2020-11-21 12:18] LABS: Abs Immature Grans 0.02 10^3/uL (0.0-0.06); Absolute Basophil Count 0.03 10^3/uL (0.0-0.2); Absolute Eosinophil Count 0.15 10^3/uL (0.0-0.7); Absolute Lymphocyte Count 0.96 10^3/uL (1.2-3.4); Absolute Monocyte Count 0.74 10^3/uL (0.1-0.8); Absolute Neutrophil Count 3.46 10^3/uL (1.2-6.7); Basophils % 0.6; Eosinophils % 2.8; HCT 36.6 % (36.0-46.0); Immature Grans % 0.4; Lymphocytes % 17.9; MCH 29.5 pg (27.0-33.0); MCHC 32.8 % (32.0-36.0); MCV 89.9 fL (80-95); MPV 9.6 fL (8.0-11.0); Monocytes % 13.8; Neutrophils % 64.5; Nucleated RBC 0 %; Platelet Count 295 10^3/uL (130-400); RBC 4.07 10^6/uL (3.93-5.22); RDW 12.7 % (11.7-14.6); RDW-SD 41.9 fL; WBC 5.36 10^3/uL (4.4-10.8)
[2020-11-21 12:35] LABS: ALT 22 U/L (14-59); Albumin 3.7 g/dL (3.4-5.0); Alkaline Phosphatase 127 U/L (46-116); Anion Gap 5.9 mmol/L (3-11); BUN 14 mg/dL (7-18); Bilirubin, Total 0.4 mg/dL (0.2-1.0); CO2 29.1 mmol/L (21.0-32.0); CREATININE 0.9 mg/dL (0.55-1.02); Calcium 8.2 mg/dL (8.5-10.1); Chloride 104 mmol/L (98-107); Glucose 100 mg/dL (74-106); LDH 173 U/L (81-234); Potassium 4.2 mmol/L (3.5-5.1); Sodium 139 mmol/L (136-145)
[2020-11-21 12:49] LABS: AST 20 U/L (15-37)
== END 2020-11-21 03:30 | disposition home or self-care (01) ==
LOC: LBO 03:29
PROVIDERS: PCP Family Medicine; Visit Provider Internal Medicine Hematology & Oncology
DX: C83.31 Diffuse large B-cell lymphoma, lymph nodes of head, face, and neck (principal)
CPT/HCPCS: 36415; 80053; 83615; 85025

== ENCOUNTER 2021-02-20 04:20 | Outpatient (CLI) | payer MEDICARE, SELFPAY ==
[2021-02-20 13:18] LABS: Abs Immature Grans 0.02 10^3/uL (0.0-0.06); Absolute Basophil Count 0.05 10^3/uL (0.0-0.2); Absolute Eosinophil Count 0.19 10^3/uL (0.0-0.7); Absolute Lymphocyte Count 1.05 10^3/uL (1.2-3.4); Basophils % 0.9; Eosinophils % 3.3; HCT 39.7 % (36.0-46.0); HGB 12.8 g/dL (11.2-15.7); Immature Grans % 0.3; Lymphocytes % 18.1; MCHC 32.2 % (32.0-36.0); MCV 89.8 fL (80-95); MPV 9.7 fL (8.0-11.0); Monocytes % 13.8; Neutrophils % 63.6; Nucleated RBC 0 %; Platelet Count 313 10^3/uL (130-400); RBC 4.42 10^6/uL (3.93-5.22); RDW 13.2 % (11.7-14.6); RDW-SD 43.9 fL; WBC 5.81 10^3/uL (4.4-10.8)
[2021-02-20 13:41] LABS: ALT 26 U/L (14-59); AST 24 U/L (15-37); Alkaline Phosphatase 114 U/L (46-116); Anion Gap 6.9 mmol/L (3-11); BUN 15 mg/dL (7-18); Bilirubin, Total 0.4 mg/dL (0.2-1.0); CO2 29.1 mmol/L (21.0-32.0); CREATININE 0.8 mg/dL (0.55-1.02); Calcium 8.9 mg/dL (8.5-10.1); Chloride 104 mmol/L (98-107); Glucose 121 mg/dL (74-106); LDH 200 U/L (81-234); Potassium 3.8 mmol/L (3.5-5.1); Sodium 140 mmol/L (136-145); Total Protein 7.4 g/dL (6.4-8.2)
== END 2021-02-20 04:21 | disposition home or self-care (01) ==
PROVIDERS: PCP Family Medicine; Visit Provider Internal Medicine Hematology & Oncology
DX: C83.31 Diffuse large B-cell lymphoma, lymph nodes of head, face, and neck (principal)
CPT/HCPCS: 36415; 80053; 83615; 85025

== ENCOUNTER 2021-03-07 14:43 | Outpatient (REF) | payer MEDICARE, SELFPAY ==
[2021-03-07 15:59] LABS: Calculated LDL 95 mg/dL (<100); Cholesterol 196 mg/dL (<200); HDL Cholesterol 68 mg/dL (40-60); Triglyceride 169 mg/dL (<150)
[2021-03-07 16:03] LABS: Hemoglobin A1C 5.6 % (<5.7)
[2021-03-10 05:33] LABS: Vitamin D 25 Total 31.7 ng/mL (30-100)
== END 2021-03-07 14:44 | disposition home or self-care (01) ==
LOC: NCHCN 14:43
PROVIDERS: PCP Family Medicine; Visit Provider Family Medicine
DX: E78.5 Hyperlipidemia, unspecified (principal); R73.03 Prediabetes; M85.80 Other specified disorders of bone density and structure, unspecified site
CPT/HCPCS: 80061; 82306; 83036

== ENCOUNTER 2021-06-20 01:45 | Outpatient (CLI) | payer MEDICARE, SELFPAY ==
--- NOTE | 2021-06-20 08:20 | DI.MAMMO_ITS ---
Exam(s) MAMMO SCREENING EXAM: MAMMO SCREENING CLINICAL HISTORY: SCREENING, Z12.31. TECHNIQUE: Bilateral full field digital CC and MLO mammographic images were obtained with 3D tomosyn thesis and utilizing computer aided detection (CAD). COMPARISON: Prior mammograms were reviewed, the most recent being March 2019.. Significant family history. Both her mother and sister were apparently diagnosed with breast cancer FINDINGS: There has been no significant change in the appearance and distribution of the fibroglandular tissue. There are no CAD designations There are no new spiculated masses nor malignant appearing microcalcification groups. Stable benign-appearing nodules are again noted. There is no significant architectural distortion nor skin thickening-retraction. IMPRESSION: Stable benign findings. No radiographic evidence of malignancy. BI-RADS Category 2 - Benign Findings Breast Density - Category B - Scattered areas of fibroglandular density Breast density Category C or D implies that the patient has dense breast tissue. Dense breast tissue can make it harder to find cancer on a mammogram. Dense breast tissue is also associated with an incr eased risk of breast cancer. This information about the result of the mammogram report was provided to the patient to raise their awareness. Use this report when you speak with the patient about their risks for breast cancer, which includes their family history. At that time, you may recommend additional screening tests (Ultrasoun d or MRI) as these tests may add significant information. A negative radiographic report should not delay biopsy if a dominant or clinically suspicious mass is present. Up to ten percent of cancers are not identified on mammography. A negative report may reinforce clinical impression. Adenosis and dense breasts may obscure an underlying neoplasm. False positive reports average 6 to 10%. Patient will receive a letter notifying them of these results.
== END 2021-06-20 02:05 ==
PROVIDERS: PCP Family Medicine; Visit Provider Family Medicine
DX: Z12.31 Encounter for screening mammogram for malignant neoplasm of breast (principal); Z80.3 Family history of malignant neoplasm of breast
CPT/HCPCS: 77063; 77067

== ENCOUNTER 2021-08-15 09:24 | Outpatient (CLI) | payer MEDICARE, SELFPAY ==
--- NOTE | 2021-08-15 | DI.US_ITS ---
APPROVED REPORT EXAM: Comprehensive 2D, Doppler, and color-flow Echocardiogram Patient Location: Out-Patient Change Control Analyst: Kayley Ellison RDCS (AE) Indications: Dyspnea Other Information Study Quality: Adequate Conclusion Normal left ventricular wall thickness and chamber size. Estimated ejection fraction is 40 to 45% wi th global hypokinesis Normal right ventricular size and systolic function Both atria are normal in size Aortic valve is sclerotic and trileaflet without stenosis. There is mild aortic regurgitation Mild mitral annular calcification. Trace to mild mitral regurgitation Normal tricuspid valve with mild regurgitation. Estimated right ventricular systolic pressure is 20 mmHg Dilated ascending aorta measuring 3.63 cm Wall motion Left Ventricle The left ventricle is normal size. Left ventricular systolic function is moderately decreased. There is normal left ventricular wall thickness. There is global hypokinesis of the left ventricle. There i s no ventricular septal defect visualized. LVEF is 40-45%. Right Ventricle Right ventricle is grossly normal in size. Right ventricular systolic function is grossly normal. The RVSP is 20.4mmHg. Atria The left atrium size is normal. The right atrium size is normal. The interatrial septum is intact wit h no evidence for an atrial septal defect. Aortic Valve The Aortic valve is sclerotic. Aortic valve is trileaflet. There is no aortic valvular stenosis. Mild aortic regurgitation. Mitral Valve Mild mitral annular calcification. No evidence of mitral valve stenosis. Trace to mild mitral regurgi tation. Tricuspid Valve The tricuspid valve is normal in structure. There is no tricuspid valve stenosis. Mild tricuspid regu rgitation. Pulmonic Valve The pulmonary valve is normal in structure. There is no pulmonic valvular stenosis. Trace pulmonic re gurgitation. Great Vessels The aortic root is normal in size. The ascending aorta is mild to moderately dilated 3.63 cm Aortic a rch is normal in caliber. IVC is normal in size and collapses >50% with inspiration. Pericardium There is no pericardial effusion. 2D Dimensions IVSD d PLAX 0.85 cm F: 0.6-1.0 LV Vol A2C d MOD 103.9 mL LVPW d PLAX 0.85 cm F: 0.6 - 1.0 LV Vol A4C d MOD 82.5 mL LVID d PLAX 4.85 cm F: 3.8 - 5.2 LA vol/ BSA A2C s A-L 31.9 mL/m2 LVDs 3.80 cm F: 2.2 - 3.5 LA vol/ BSA A4C s A-L 18.5 mL/m2 Ao Root d 3.20 cm F: 2.7 - 3.3 LA Vol/ BSA Biplane s A-L 24.9 mL/m2 RA Area A4C 13.27 cm2 LA Area A4C s MOD 13.90 cm2 RA Vol/ BSA A4C s A-L 18.6 mL/m2 LA Area A2C s MOD 17.87 cm2 Ao Asc Diam d 3.63 cm F: 2.3 - 3.1 LV EF A4C MOD 40.0 % LV EF Teichholz 42.9 % LV EF A2C MOD 40.7 % LVEF (Banerjee's) 41.57 % F: 54 - 74 LV EF Biplane MOD 41.6 % LV Volume 75.45 mL F: 46 - 106 SV 39.48 mL LV Volume Index 44.64 mL/m2 F: 29 - 61 SV Index 23.25 mL/m2 LV Vol Biplane MOD 95.0 mL FS 21.15 % M-Mode TAPSE 2.24 cm (M/F) >1.7 LV Diastology MV E' medial 0.049 (>0.07 m/s) E/A Ratio 0.5 LV E/e MED 10.25 (<14) MV E Vmax 0.50 (0.4-1.3 m/s) MV E' lateral 0.045 (>0.1 m/s) MV A Vmax 0.95 (0.4-1.3 m/s) LV E/e LAT 11.10 (<14) MV E/A Ratio 0.51 MV E/E' medial 10.29 MV E/E' lateral 11.12 Aortic Valve LVOT Area 2.92 cm2 AoV Area Vmax 1.66 cm2 LVOT Vmax 0.89 m/s AoV Area/ BSA (Vmax) 0.98 cm2/m2 LVOT Mean Kenny. 0.68 m/s NIHARIKA Mean Kenny. 1.79 cm2 LVOT Peak Grad 3.2 mmHg NIHARIKA Mean Kenny. Index 1.05 cm2/m2 LVOT Mean Grad 2.0 mmHg AR DT 1685 msec LVOT VTI 0.200 m AR PHT 489 msec LVOT Diam s 1.90 cm AoV Vmax 1.56 m/s Velocity Ratio 0.57 AoV Mean Kenny. 1.11 m/s AoV Peak Grad 9.8 mmHg LVOT SV 58.30 mL AoV Mean Grad 5.5 mmHg AoV VTI 0.293 m AoV Area VTI 1.99 cm2 AoV Area/ BSA (VTI) 1.17 cm/m2 Mitral Valve MV DT 323 (160-240 msec) MV PHT 94 msec MV Area PHT 2.35 cm2 MV VTI 0.242 m MV Area VTI 2.41 (4.0-6.0 cm2) Pulmonary Valve PV Vmax 0.85 (0.5-1.5 m/s) RVOT Peak Gr. 1.19 mmHg PV Peak Grad 2.9 mmHg RVOT Mean Gr. 0.70 mmHg PV Mean Grad 1.8 mmHg RVOT VTI 0.128 m PV VTI 0.200 m RVOT Vmax 0.54 m/s Tricuspid Valve TR Peak Grad 17.3 mmHg TR Vmax 2.08 m/s RA Pressure 3.00 mmHg RVSP (TR) 20.4 mmHg
== END 2021-08-15 09:44 ==
LOC: DI 09:24
PROVIDERS: PCP Family Medicine; Visit Provider Internal Medicine Cardiovascular Disease
DX: R06.00 Dyspnea, unspecified (principal)
CPT/HCPCS: 93306

== ENCOUNTER 2021-11-13 04:16 | Outpatient (CLI) | payer MEDICARE, SELFPAY ==
[2021-11-13 10:16] LABS: Abs Immature Grans 0.01 10^3/uL (0.0-0.06); Absolute Basophil Count 0.05 10^3/uL (0.0-0.2); Absolute Eosinophil Count 0.13 10^3/uL (0.0-0.7); Absolute Lymphocyte Count 0.98 10^3/uL (1.2-3.4); Absolute Monocyte Count 0.58 10^3/uL (0.1-0.8); Absolute Neutrophil Count 3.28 10^3/uL (1.2-6.7); Eosinophils % 2.6; HCT 40.1 % (36.0-46.0); HGB 13.6 g/dL (11.2-15.7); Immature Grans % 0.2; Lymphocytes % 19.5; MCH 30.2 pg (27.0-33.0); MCHC 33.9 % (32.0-36.0); MCV 89 fL (80-95); MPV 9.5 fL (8.0-11.0); Monocytes % 11.5; Neutrophils % 65.2; Platelet Count 294 10^3/uL (130-400); RBC 4.51 10^6/uL (3.93-5.22); RDW-SD 42.5 fL; WBC 5.03 10^3/uL (4.4-10.8)
[2021-11-13 10:49] LABS: ALT 24 U/L (14-59); AST 20 U/L (15-37); Alkaline Phosphatase 120 U/L (46-116); Anion Gap 8.3 mmol/L (3-11); BUN 11 mg/dL (7-18); Bilirubin, Total 0.5 mg/dL (0.2-1.0); CO2 28.7 mmol/L (21.0-32.0); Calcium 9.2 mg/dL (8.5-10.1); Chloride 101 mmol/L (98-107); Estimated GFR 58.02 (mL/min/1.73m2); Glucose 112 mg/dL (74-106); LDH 192 U/L (81-234); Sodium 138 mmol/L (136-145); Total Protein 7.7 g/dL (6.4-8.2)
== END 2021-11-13 04:17 | disposition home or self-care (01) ==
LOC: LBO 04:16
PROVIDERS: PCP Family Medicine; Visit Provider Internal Medicine Hematology & Oncology
DX: C83.31 Diffuse large B-cell lymphoma, lymph nodes of head, face, and neck (principal)
CPT/HCPCS: 36415; 80053; 83615; 85025

== ENCOUNTER 2021-12-09 18:06 | Outpatient (REF) | payer MEDICARE, SELFPAY ==
[2021-12-09 18:51] LABS: NT-proBNP 123 pg/mL (<300)
== END 2021-12-09 18:07 | disposition home or self-care (01) ==
LOC: NCHCN 18:06
PROVIDERS: PCP Family Medicine; Visit Provider Family Medicine
DX: R06.09 Other forms of dyspnea (principal); I10 Essential (primary) hypertension
CPT/HCPCS: 83880

== ENCOUNTER 2022-03-23 01:58 | Outpatient (CLI) | payer MEDICARE, SELFPAY ==
--- NOTE | 2022-03-23 | DI.CT_ITS ---
Exam(s) CT CHEST/ABD/PEL W EXAM: CT CHEST/ABD/PEL W CLINICAL HISTORY: F/U LYMPHOMA,C83.30,ASSESS TREATMENT RESPONSE TECHNIQUE: Imaging Protocol: Axial computed tomography images with coronal and sagittal reformatted images were created and reviewed CONTRAST MATERIAL: Intravenous: Omnipaque 350 contrast volume:100 mL Oral: Yes COMPARISON: CT ABD PELVIS WITH CONTRAST from 11/20/[address] CHEST PE CTA from 11/29/[address] CHEST PE CTA from 04/16/2020 FINDINGS: The examination is limited due to patient motion artifact. CHEST: Tracheobronchial tree: Patent where visualized. Pulmonary parenchyma: No consolidation or dominant measurable mass. No architectural distortion. Ther e is a stable 4 mm nodule associated with the left major fissure. No new pulmonary nodules are seen. Mild dependent atelectatic changes are seen in the lung bases. Visualized thyroid gland: Unremarkable. Mediastinum and Jessica: No dominant adenopathy or fluid collection. The esophagus is unremarkable. Pleura: No effusion or pneumothorax. Heart: Mild cardiomegaly. No coronary artery calcifications are seen. No pericardial effusion. Pulmonary arteries: No pulmonary emboli are identified. Aorta: The ascending aorta measures 4.3 x 4.2 cm. Atherosclerosis. Lymph nodes: Within normal limits. Soft tissues: Unremarkable. Bones:Within normal limits for the patient's age. ABDOMEN: Liver: Normal density. There are stable hepatic cysts. No suspicious hepatic masses are seen. Portal, Superior Mesenteric, and Splenic Veins: Unremarkable. Gallbladder and Biliary Tract: No radiodense calculus or dilation. Pancreas: Normal density, no abnormal calcifications or inflammatory process. Spleen: Normal. Adrenals: No masses seen. Kidneys: Normal size, contour and axis. No radiodense stones or obstructive uropathy. There is a 3 cm simple right renal cyst. This cyst is seen on prior examinations. Abdominal Aorta: Abdominal portion non-dilated. Atherosclerosis is present. Bowel: There is diverticulosis of the colon but no evidence of acute diverticulitis. There is no danay dence of appendicitis. No evidence of bowel obstruction or inflammation. Peritoneal Cavity: No ascites, collection or mesenteric inflammatory response. No free air. Lymph Nodes: Within normal limits. Bones: Within normal limits for the patient's age. No aggressive osseous lesions. Soft Tissues: Unremarkable. PELVIS: Bladder: Symmetric distention, no gross wall thickening. Reproductive Organs: The right ovarian cyst now measures 3.5 x 3.1 cm. This compares to 2.5 cm on th e prior examination from 2017. Lymph Nodes: Within normal limits. Bones: Within normal limits. IMPRESSION: 1. No evidence of chest, abdominal or pelvic adenopathy. 2. Stable left pulmonary nodule. Follow-up CT scan in 1 year is recommended for re-evaluation. 3. Stable ascending aortic dilatation. 4. Interval increase in size of right ovarian cyst which now measures 3.5 x 3.1 cm compared to 2.5 on the prior examination. Pelvic ultrasound is recommended for further evaluation. Unexpected findings RADIATION DOSE DELIVERED: 1,743.41mGy.cm Total DLP DATA REPOSITORY: All CT scans at this facility are submitted to the National Radiology Data Registry (NRDR) Dose Index Registry (DIR) with the [employer] (ACR). RADIATION OPTIMIZATION: All CT scans at this facility use at least one of these dose optimization te chniques: automated exposure control; mA and/or kV adjustment per patient size (includes targeted exa ms where dose is matched to clinical indication); or iterative reconstruction.
[2022-03-23 08:19] LABS: Abs Immature Grans 0.01 10^3/uL (0.0-0.06); Absolute Basophil Count 0.05 10^3/uL (0.0-0.2); Absolute Eosinophil Count 0.15 10^3/uL (0.0-0.7); Absolute Lymphocyte Count 1.01 10^3/uL (1.2-3.4); Absolute Monocyte Count 0.54 10^3/uL (0.1-0.8); Absolute Neutrophil Count 2.15 10^3/uL (1.2-6.7); Basophils % 1.3; Eosinophils % 3.8; HCT 35.8 % (36.0-46.0); HGB 11.7 g/dL (11.2-15.7); Immature Grans % 0.3; Lymphocytes % 25.8; MCH 30.1 pg (27.0-33.0); MCHC 32.7 % (32.0-36.0); MCV 92 fL (80-95); MPV 9.7 fL (8.0-11.0); Monocytes % 13.8; Platelet Count 266 10^3/uL (130-400); RBC 3.89 10^6/uL (3.93-5.22); RDW 13.2 % (11.7-14.6); RDW-SD 44.5 fL; WBC 3.91 10^3/uL (4.4-10.8)
[2022-03-23] MEDS: Barium Sulfate 2% W/V-Berry Smoothie 450 ML BTL 900 ML PO (08:19)
[2022-03-23 08:35] LABS: ALT 24 U/L (14-59); AST 31 U/L (15-37); Albumin 3.7 g/dL (3.4-5.0); Alkaline Phosphatase 89 U/L (46-116); Anion Gap 4.9 mmol/L (3-11); BUN 15 mg/dL (7-18); Bilirubin, Total 0.4 mg/dL (0.2-1.0); CO2 28.1 mmol/L (21.0-32.0); CREATININE 0.9 mg/dL (0.55-1.02); Calcium 8.9 mg/dL (8.5-10.1); Chloride 103 mmol/L (98-107); Estimated GFR 65.84 (mL/min/1.73m2); Glucose 119 mg/dL (74-106); LDH 212 U/L (81-234); Potassium 3.4 mmol/L (3.5-5.1); Sodium 136 mmol/L (136-145); Total Protein 6.8 g/dL (6.4-8.2)
[2022-03-23] MEDS: Omnipaque 350 MG/ML 500 ML BTL-Imaging package IJ (10:19)
[2022-03-23] MEDS: Normal Saline - Diluent 50 ML VIAL IJ (10:20)
== END 2022-03-23 02:18 ==
LOC: DI 01:58
PROVIDERS: PCP Family Medicine; Visit Provider Internal Medicine Hematology & Oncology
DX: C83.31 Diffuse large B-cell lymphoma, lymph nodes of head, face, and neck (principal); R91.1 Solitary pulmonary nodule; K76.89 Other specified diseases of liver; N28.1 Cyst of kidney, acquired; N83.291 Other ovarian cyst, right side; Z12.89 Encounter for screening for malignant neoplasm of other sites
CPT/HCPCS: 74177; 80053; 71260; 83615; 85025

== ENCOUNTER 2022-04-16 02:25 | Outpatient (CLI) | payer MEDICARE, SELFPAY ==
--- NOTE | 2022-04-16 13:00 | DI.US_ITS ---
Exam(s) US PELVIS EXAM: US PELVIS CLINICAL HISTORY: RT OVARIAN CYST SEEN ON CT, N83.201. TECHNIQUE: Transabdominal pelvic ultrasound was performed using standard protocol. COMPARISON: CT CT CHEST/ABD/PEL W from 03/23/2022 FINDINGS: UTERUS: The uterus was suboptimally evaluated due to overlying bowel. The endometrial stripe could n ot be identified on this examination. Position: Anteverted. Size: 5.8 long by 2.3 AP by 4 transverse cm Myometrium: Unremarkable. Cervix: Unremarkable. OVARIES: The left ovary was not visualized transabdominally. Right: 3.9 x 2.9 x 3.1 cm Cyst or mass: No suspicious cystic or solid masses. There is a 2.8 x 2.7 x 2.3 cm simple cyst on the right ovary. DOPPLER: Color: Symmetric and uniform flow to both ovaries. CUL-DE-SAC: Free fluid: None. Other: None. IMPRESSION: 1. Examination limited by overlying bowel. 2. 2.8 x 2.7 x 2.3 cm simple right ovarian cyst. Follow-up examination in 2-3 months is suggested. 3. Grossly unremarkable uterus. DATA REPOSITORY:
== END 2022-04-16 02:45 ==
PROVIDERS: PCP Family Medicine; Visit Provider Internal Medicine Hematology & Oncology
DX: N83.291 Other ovarian cyst, right side (principal)
CPT/HCPCS: 76856

== ENCOUNTER 2022-07-09 15:03 | Outpatient (CLI) | payer MEDICARE, SELFPAY ==
[2022-07-09 13:36] LABS: Abs Immature Grans 0.02 10^3/uL (0.0-0.06); Absolute Basophil Count 0.05 10^3/uL (0.0-0.2); Absolute Eosinophil Count 0.12 10^3/uL (0.0-0.7); Absolute Lymphocyte Count 1.48 10^3/uL (1.2-3.4); Absolute Monocyte Count 0.71 10^3/uL (0.1-0.8); Absolute Neutrophil Count 3.98 10^3/uL (1.2-6.7); Basophils % 0.8; Eosinophils % 1.9; HCT 39.6 % (36.0-46.0); HGB 13.4 g/dL (11.2-15.7); Immature Grans % 0.3; Lymphocytes % 23.3; MCH 30.7 pg (27.0-33.0); MCHC 33.8 % (32.0-36.0); MCV 91 fL (80-95); MPV 9.2 fL (8.0-11.0); Monocytes % 11.2; Neutrophils % 62.5; Platelet Count 331 10^3/uL (130-400); RBC 4.37 10^6/uL (3.93-5.22); RDW 13.4 % (11.7-14.6); RDW-SD 45.1 fL; WBC 6.36 10^3/uL (4.4-10.8)
[2022-07-09 13:58] LABS: ALT 30 U/L (14-59); AST 29 U/L (15-37); Albumin 4.1 g/dL (3.4-5.0); Alkaline Phosphatase 105 U/L (46-116); Anion Gap 8.6 mmol/L (3-11); BUN 15 mg/dL (7-18); Bilirubin, Total 0.4 mg/dL (0.2-1.0); CO2 29.4 mmol/L (21.0-32.0); Calcium 9.2 mg/dL (8.5-10.1); Chloride 101 mmol/L (98-107); Estimated GFR 57.66 (mL/min/1.73m2); Glucose 115 mg/dL (74-106); LDH 211 U/L (81-234); Potassium 4.2 mmol/L (3.5-5.1); Sodium 139 mmol/L (136-145); Total Protein 7.8 g/dL (6.4-8.2)
== END 2022-07-09 15:04 | disposition home or self-care (01) ==
LOC: LBO 15:08
PROVIDERS: PCP Family Medicine; Visit Provider Internal Medicine Hematology & Oncology
DX: C83.30 Diffuse large B-cell lymphoma, unspecified site (principal)
CPT/HCPCS: 36415; 80053; 83615; 85025

== ENCOUNTER 2022-11-25 20:00 | Outpatient (REF) | payer MEDICARE, SELFPAY ==
[2022-11-25 20:40] LABS: BUN 16 mg/dL (7-18); CREATININE 0.8 mg/dL (0.55-1.02); Chloride 103 mmol/L (98-107); Estimated GFR 75.37 (mL/min/1.73m2); Folate 11.3 ng/mL (8.6-20.0); Glucose 117 mg/dL (74-106); Potassium 3.6 mmol/L (3.5-5.1); Sodium 140 mmol/L (136-145); TSH (W/Ref FT4) 2.03 uIU/mL (0.36-3.74); Vitamin B12 455 pg/mL (193-986)
== END 2022-11-25 20:01 | disposition home or self-care (01) ==
LOC: NCHCN 20:00
PROVIDERS: PCP Family Medicine; Visit Provider Family Medicine
DX: R41.3 Other amnesia (principal)
CPT/HCPCS: 80048; 82607; 82746; 84443

== ENCOUNTER 2023-01-28 02:02 | Outpatient (CLI) | payer MEDICARE, SELFPAY ==
[2023-01-28 09:24] LABS: ALT 21 U/L (14-59); AST 19 U/L (15-37); Albumin 3.8 g/dL (3.4-5.0); Alkaline Phosphatase 104 U/L (46-116); Anion Gap 5.1 mmol/L (3-11); BUN 14 mg/dL (7-18); Bilirubin, Total 0.4 mg/dL (0.2-1.0); CO2 30.9 mmol/L (21.0-32.0); CREATININE 1.1 mg/dL (0.55-1.02); Calcium 9.1 mg/dL (8.5-10.1); Chloride 104 mmol/L (98-107); Estimated GFR 51.43 (mL/min/1.73m2); Glucose 133 mg/dL (74-106); LDH 199 U/L (81-234); Potassium 3.9 mmol/L (3.5-5.1); Sodium 140 mmol/L (136-145); Total Protein 7.5 g/dL (6.4-8.2)
[2023-01-28 09:25] LABS: Absolute Neutrophil Count 3.51 10^3/uL (1.2-6.7); HCT 40.6 % (36.0-46.0); HGB 13.3 g/dL (11.2-15.7); MCH 30.2 pg (27.0-33.0); MCHC 32.8 % (32.0-36.0); MCV 92 fL (80-95); MPV 9.7 fL (8.0-11.0); Neutrophils % 58.4; Platelet Count 322 10^3/uL (130-400); RBC 4.41 10^6/uL (3.93-5.22); RDW 13.2 % (11.7-14.6); RDW-SD 45.1 fL; WBC 6.01 10^3/uL (4.4-10.8)
[2023-01-28 09:26] LABS: Absolute Basophil Count 0.06 10^3/uL (0.0-0.2); Absolute Eosinophil Count 0.24 10^3/uL (0.0-0.7); Absolute Lymphocyte Count 1.51 10^3/uL (1.2-3.4); Absolute Monocyte Count 0.66 10^3/uL (0.1-0.8); Immature Grans % 0.5; Lymphocytes % 25.1
== END 2023-01-28 02:03 | disposition home or self-care (01) ==
LOC: LBO 02:02
PROVIDERS: PCP Family Medicine; Visit Provider Internal Medicine Hematology & Oncology
DX: C83.30 Diffuse large B-cell lymphoma, unspecified site (principal)
CPT/HCPCS: 36415; 80053; 83615; 85025

== ENCOUNTER → 2023-04-08 00:35 | Outpatient (CLI) | payer MEDICARE, SELFPAY ==
--- NOTE | 2023-04-08 | DI.DEXA_ITS ---
Exam(s) XR DEXA BONE DENSITY W/WO RODNEY EXAM: XR DEXA BONE DENSITY W/WO RODNEY CLINICAL HISTORY: Asymptomatic menopausal state, Z78.0; screening for osteoporosis TECHNIQUE: COMPARISON: CR XR DEXA BONE DENSITY W/WO RODNEY from 02/23/2019 FINDINGS: Lateral Spine Image: Unremarkable. No compression deformities identified. Left hip: Total T-Score: -2.1. This compares to -1.7 on the prior examination. Total Z-Score: -0.1 T- and Z-scores: Overall, the findings are consistent with osteopenia. There is osteoporosis in the femoral neck with a T-score of -3.4. Lumbar Spine: Total T-Score: -0.8. This compares to -0.7 on the prior examination. Total Z-Score: 1.8 T- and Z-scores: Within normal limits. IMPRESSION: Findings of osteoporosis are seen in the left femoral neck.
--- NOTE | 2023-04-08 08:50 | DI.MAMMO_ITS ---
Exam(s) MAMMO SCREENING EXAM: MAMMO SCREENING CLINICAL HISTORY: Screening, Z12.31 TECHNIQUE: Bilateral full field digital CC and MLO mammographic images were obtained with 3D tomosyn thesis and utilizing computer aided detection (CAD). COMPARISON: Available for comparison. FINDINGS: Masses/Architectural Distortion: None seen. Microcalcifications: No suspicious pleomorphic-type are seen. Skin Thickening/Nipple Retraction: None. IMPRESSION: 1. No significant interval change with no specific features of malignancy noted. 2. Unless there is more urgent need, screening mammography is recommended, as per [employer] guidelines. BI-RADS Category 1 - Negative Breast Density - Category B - Scattered areas of fibroglandular density Breast density category C or D implies that the patient has dense breast tissue. Dense breast tissue is very common and is not abnormal but dense breast tissue can make it harder to find cancer on a ma mmogram. Also, dense breast tissue may increase their breast cancer risk. This information about the result of the mammogram report was provided to the patient to raise their awareness. Use this report when you speak with the patient about their risks for breast cancer, which includes their family hist ory. At that time, you may recommend for more screening tests (Ultrasound or MRI) as they might be us eful based on their risk. A negative radiographic report should not delay biopsy if a dominant or clinically suspicious mass is present. Up to ten percent of cancers are not identified on mammography. A negative report may reinforce clinical impression. Adenosis and dense breasts may obscure an underlying neoplasm. False positive reports average 6 to 10%. Patient will receive a letter notifying them of these results.
== END ==
PROVIDERS: PCP Family Medicine; Visit Provider Family Medicine
DX: Z78.0 Asymptomatic menopausal state (principal); Z12.31 Encounter for screening mammogram for malignant neoplasm of breast; Z13.820 Encounter for screening for osteoporosis; M81.0 Age-related osteoporosis without current pathological fracture
CPT/HCPCS: 77063; 77067; 77080

== ENCOUNTER 2023-07-29 00:49 | Outpatient (CLI) | payer MEDICARE, SELFPAY ==
[2023-07-29 12:40] LABS: Abs Immature Grans 0.01 10^3/uL (0.0-0.06); Absolute Basophil Count 0.06 10^3/uL (0.0-0.2); Absolute Eosinophil Count 0.13 10^3/uL (0.0-0.7); Absolute Lymphocyte Count 1.48 10^3/uL (1.2-3.4); Absolute Monocyte Count 0.74 10^3/uL (0.1-0.8); Absolute Neutrophil Count 3.81 10^3/uL (1.2-6.7); Eosinophils % 2.1 %; HCT 39.7 % (36.0-46.0); Immature Grans % 0.2 %; Lymphocytes % 23.8 %; MCH 30.1 pg (27.0-33.0); MCHC 32.7 % (32.0-36.0); MCV 92 fL (80-95); MPV 9.7 fL (8.0-11.0); Monocytes % 11.9 %; Platelet Count 287 10^3/uL (130-400); RBC 4.32 10^6/uL (3.93-5.22); RDW 13.2 % (11.7-14.6); RDW-SD 44.9 fL; WBC 6.23 10^3/uL (4.4-10.8)
[2023-07-29 12:55] LABS: ALT 24 U/L (14-59); AST 20 U/L (15-37); Albumin 3.8 g/dL (3.4-5.0); Alkaline Phosphatase 93 U/L (46-116); Anion Gap 9.1 mmol/L (3-11); BUN 13 mg/dL (7-18); Bilirubin, Total 0.5 mg/dL (0.2-1.0); CO2 29.9 mmol/L (21.0-32.0); CREATININE 0.9 mg/dL (0.55-1.02); Calcium 8.7 mg/dL (8.5-10.1); Chloride 101 mmol/L (98-107); Estimated GFR 65.03 (mL/min/1.73m2); Glucose 110 mg/dL (74-106); LDH 198 U/L (81-234); Potassium 3.9 mmol/L (3.5-5.1); Sodium 140 mmol/L (136-145); Total Protein 7.5 g/dL (6.4-8.2)
== END 2023-07-29 00:50 | disposition home or self-care (01) ==
PROVIDERS: PCP Family Medicine; Visit Provider Nurse Practitioner Family
DX: C83.31 Diffuse large B-cell lymphoma, lymph nodes of head, face, and neck (principal)
CPT/HCPCS: 36415; 80053; 83615; 85025

== ENCOUNTER 2024-02-02 04:24 | Outpatient (CLI) | payer MEDICARE, SELFPAY ==
[2024-02-02 08:26] LABS: Abs Immature Grans 0.01 10^3/uL (0.0-0.06); Absolute Basophil Count 0.05 10^3/uL (0.0-0.2); Absolute Eosinophil Count 0.11 10^3/uL (0.0-0.7); Absolute Lymphocyte Count 1.22 10^3/uL (1.2-3.4); Absolute Monocyte Count 0.66 10^3/uL (0.1-0.8); Absolute Neutrophil Count 3.41 10^3/uL (1.2-6.7); Basophils % 0.9 %; HCT 37.7 % (36.0-46.0); HGB 12.9 g/dL (11.2-15.7); Immature Grans % 0.2 %; Lymphocytes % 22.3 %; MCH 30.5 pg (27.0-33.0); MCHC 34.2 % (32.0-36.0); MCV 89 fL (80-95); MPV 9.9 fL (8.0-11.0); Monocytes % 12.1 %; Neutrophils % 62.5 %; Platelet Count 277 10^3/uL (130-400); RBC 4.23 10^6/uL (3.93-5.22); RDW 13.5 % (11.7-14.6); RDW-SD 43.8 fL; WBC 5.46 10^3/uL (4.4-10.8)
[2024-02-02 08:55] LABS: ALT 21 U/L (14-59); AST 23 U/L (15-37); Albumin 3.7 g/dL (3.4-5.0); Alkaline Phosphatase 78 U/L (46-116); BUN 11 mg/dL (7-18); Bilirubin, Total 0.53 mg/dL (0.2-1.0); Calcium 8.7 mg/dL (8.5-10.1); Chloride 105 mmol/L (98-107); Estimated GFR 57.31 (mL/min/1.73m2); Glucose 121 mg/dL (74-106); LDH 189 U/L (81-234); Sodium 141 mmol/L (136-145); Total Protein 7.1 g/dL (6.4-8.2)
== END 2024-02-02 04:25 | disposition home or self-care (01) ==
LOC: LBO 04:24
PROVIDERS: PCP Family Medicine; Visit Provider Internal Medicine Hematology & Oncology
DX: C83.31 Diffuse large B-cell lymphoma, lymph nodes of head, face, and neck (principal)
CPT/HCPCS: 36415; 80053; 83615; 85025

== ENCOUNTER 2024-03-01 02:23 | Outpatient (CLI) | payer MEDICARE, SELFPAY ==
--- NOTE | 2024-03-01 | DI.CT_ITS ---
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 TECHNIQUE: Imaging Protocol: Axial computed tomography images with coronal and sagittal reformatted images were created and reviewed. Computer aided detection (CAD) was utilized. CONTRAST MATERIAL: Intravenous: Omnipaque 350 Contrast volume:75 mL Oral: yes / COMPARISON: CT CT CHEST PE CTA from 11/29/[address] CHEST PE CTA from 04/16/[address] CHEST/ABD/PEL W from 03/23/2022 FINDINGS: CHEST: Tracheobronchial tree: Patent. Pulmonary parenchyma: No consolidation or dominant measurable mass. Stable small perifissural nodule on the left. Pleura: No effusion or pneumothorax. Mediastinum: Within normal limits. Aorta: Thoracic portion non-dilated. Pulmonary arteries: No visible emboli. Heart: Heart is mildly enlarged. No pericardial effusion. Bones: Unremarkable for age. No lytic or blastic lesions.No compression fractures. Soft tissues: 10 millimeter left axillary lymph node appears larger than on prior exam. ABDOMEN and PELVIS: Liver: Normal density. Stable hepatic cysts. No suspicious mass. Gallbladder and biliary tract: No evidence of stones or wall thickening. No biliary dilatation. Pancreas: Normal density, no abnormal calcifications or inflammatory process. Spleen: Normal. Kidneys: Normal size, contour and axis. No radiodense stones. No obstructive uropathy. Stable right renal cyst. No suspicious masses seen. Adrenal glands: No masses seen. Aorta: Abdominal portion non-dilated. Atherosclerotic changes. Lymph nodes: Within normal limits. Soft tissues: Unremarkable. Bladder: Unremarkable. Bowel: No obstruction or bowel wall thickening. Diverticulosis. No evidence of diverticulitis. Peritoneal cavity: No ascites. No focal collection. No mesenteric inflammatory response. No free ai r. Bones: Unremarkable for age. Reproductive organs: 3.4 cm simple appearing right ovarian cyst, stable from prior.. IMPRESSION: Chest CT: 10 millimeter left axillary lymph node. No other enlarged lymph nodes. Stable benign-appear ing perifissural nodule on the left. Pelvic CT: No evidence of adenopathy. Stable simple right ovarian cyst. RADIATION DOSE DELIVERED: 454.9mGy.cm Total DLP DATA REPOSITORY: All CT scans at this facility are submitted to the National Radiology Data Registry (NRDR) Dose Index Registry (DIR) with the [employer] (ACR). RADIATION OPTIMIZATION: All CT scans at this facility use at least one of these dose optimization te chniques: automated exposure control; mA and/or kV adjustment per patient size (includes targeted exa ms where dose is matched to clinical indication); or iterative reconstruction.
[2024-03-01] MEDS: Barium Sulfate 2% W/V-Berry Smoothie 450 ML BTL PO ×2 (08:24→08:25)
[2024-03-01] MEDS: Normal Saline - Diluent 50 ML VIAL IJ (09:47)
[2024-03-01] MEDS: Omnipaque 350 MG/ML 500 ML BTL-Imaging package IJ (09:48)
== END 2024-03-01 02:43 ==
PROVIDERS: PCP Family Medicine; Visit Provider Nurse Practitioner Family
DX: C83.31 Diffuse large B-cell lymphoma, lymph nodes of head, face, and neck (principal); R61 Generalized hyperhidrosis
CPT/HCPCS: 74177; 71260

== ENCOUNTER 2024-06-19 18:59 | Outpatient (REF) | payer MEDICARE, SELFPAY ==
[2024-06-19 18:02] LABS: Anion Gap 11.4 mmol/L (3-11); BUN 13 mg/dL (7-18); CO2 26.6 mmol/L (21.0-32.0); CREATININE 0.9 mg/dL (0.55-1.02); Calcium 8.6 mg/dL (8.5-10.1); Calculated LDL 101 mg/dL (<100); Chloride 102 mmol/L (98-107); Cholesterol 194 mg/dL (<200); Estimated GFR 65.03 (mL/min/1.73m2); Glucose 121 mg/dL (74-106); HDL Cholesterol 66 mg/dL (>or=50); Potassium 4.1 mmol/L (3.5-5.1); Sodium 140 mmol/L (136-145); Triglyceride 137 mg/dL (<150); Vitamin D 25 Total 24 ng/mL (30-100)
== END 2024-06-19 19:00 | disposition home or self-care (01) ==
LOC: NCHCN 18:59
PROVIDERS: PCP Family Medicine; Visit Provider Family Medicine
DX: N18.2 Chronic kidney disease, stage 2 (mild) (principal); M81.0 Age-related osteoporosis without current pathological fracture; E78.5 Hyperlipidemia, unspecified
CPT/HCPCS: 80048; 80061; 82306

== ENCOUNTER 2024-09-13 03:57 | Outpatient (CLI) | payer MEDICARE, SELFPAY ==
[2024-09-13 12:03] LABS: Abs Immature Grans 0.02 10^3/uL (0.0-0.06); HCT 39.3 % (36.0-46.0); HGB 12.9 g/dL (11.2-15.7); Immature Grans % 0.3 %; MCH 29.7 pg (27.0-33.0); MCHC 32.8 % (32.0-36.0); MCV 91 fL (80-95); MPV 10.0 fL (8.0-11.0); Platelet Count 293 10^3/uL (130-400); RBC 4.34 10^6/uL (3.93-5.22); RDW 13.5 % (11.7-14.6); RDW-SD 45.1 fL; WBC 6.73 10^3/uL (4.4-10.8)
[2024-09-13 12:19] LABS: ALT 24 U/L (14-59); AST 22 U/L (15-37); Albumin 3.9 g/dL (3.4-5.0); Alkaline Phosphatase 69 U/L (46-116); Anion Gap 7.4 mmol/L (3-11); BUN 13 mg/dL (7-18); Bilirubin, Total 0.4 mg/dL (0.2-1.0); CO2 28.6 mmol/L (21.0-32.0); Calcium 8.8 mg/dL (8.5-10.1); Chloride 102 mmol/L (98-107); Estimated GFR 74.44 (mL/min/1.73m2); Glucose 122 mg/dL (74-106); LDH 205 U/L (81-234); Potassium 4.2 mmol/L (3.5-5.1); Sodium 138 mmol/L (136-145); Total Protein 7.4 g/dL (6.4-8.2)
== END 2024-09-13 03:58 | disposition home or self-care (01) ==
LOC: LBO 03:57
PROVIDERS: PCP Family Medicine; Visit Provider Internal Medicine Hematology & Oncology
DX: C83.31 Diffuse large B-cell lymphoma, lymph nodes of head, face, and neck (principal)
CPT/HCPCS: 36415; 80053; 83615; 85025

== ENCOUNTER 2024-11-29 09:39 | Observation (INO) | payer MEDICARE, SELFPAY ==
[2024-11-29] VITALS (220 sets, daily range): BP systolic 61–112; BP diastolic 33–79; PULSE 55–183; RESP 8–28; TEMP 35.7–36.7; O2SAT 93–99
--- NOTE | 2024-11-29 09:30 | RT.EKG_ITS ---
APPROVED REPORT Exam: Resting ECG Reason for Exam: chest pain Patient Location: E HR:173 bpm ECG Measurements Heart Rate 173 AXIS NC [id number] P [id number] QRSd 87 QRS -23 QT 288 T 72 QTc 492 Conclusion Atrial fibrillation with rapid V-rate...A-rate 183 Inferior infarct, old...Q >35mS, II III aVF
--- NOTE | 2024-11-29 09:45 | RT.EKG_ITS ---
APPROVED REPORT Exam: Resting ECG Reason for Exam: Repeat, Rythym change Patient Location: E HR:97 bpm ECG Measurements Heart Rate 97 AXIS IA 175 P 38 QRSd 93 QRS -34 QT 377 T 42 QTc 479 Conclusion Sinus rhythm...normal P axis, V-rate 60- 99 Low voltage, precordial leads...precordial leads <1.0mV
[2024-11-29 09:57] LABS: Abs Immature Grans 0.02 10^3/uL (0.0-0.06); HCT 41.0 % (36.0-46.0); HGB 13.8 g/dL (11.2-15.7); Immature Grans % 0.3 %; MCH 30.1 pg (27.0-33.0); MCHC 33.7 % (32.0-36.0); MCV 89 fL (80-95); MPV 9.8 fL (8.0-11.0); Platelet Count 332 10^3/uL (130-400); RBC 4.59 10^6/uL (3.93-5.22); RDW 13.2 % (11.7-14.6); RDW-SD 43.2 fL; WBC 6.88 10^3/uL (4.4-10.8)
--- NOTE | 2024-11-29 09:59 | W.ED.GENAD ---
Discharge Plan Disposition Patient Disposition: Admit to [facility] Condition: Stable Discharge Details Clinical Impression: Intermittent atrial fibrillation Admit Date/Time: 11/29/24 12:43 Admit Provider: Chente Burger Attending Provider: Chente Burger Primary Care Provider: Janeth Tillman ED Provider: Charmaine Marin Discharge Data Discharge Date/Time-TO BE ENTERED AT DEPARTURE: 11/29/24 13:57 HPI <Charmaine Marin NP - Last Filed: 11/29/24 14:08> General Mode of arrival: wheelchair. Date/Time Provider Initiated Documentation: 11/29/24 09:41. Limitations to Documentation: no limitations. Information obtained by: patient, family, RN notes reviewed and old records reviewed. HPI Narrative: 79-year-old female presents to the ER with a chief complaint of dyspnea dizziness and visual disturbances which have gotten worse since this morning. She reports a few days of brief episodes with palpitations. She presents in atrial fibrillation with RVR no history of A-fib noted. She is not on any blood thinners does not take aspirin daily. She also reports some jaw pain this morning upon awakening. During initial presentation and evaluation she self converted back into a sinus rhythm which is sinus tachycardia. Patient does have a past medical history of memory loss, metoprolol, high cholesterol, NSTEMI, lymphoma, treated with chemotherapy, Related Data Home Medications ?Medication ?Instructions ?Recorded ?Confirmed lovastatin 20 mg tablet 40 mg PO DAILY 08/02/12 11/29/24 zolpidem 10 mg tablet 5 mg PO HS PRN PRN 01/26/14 11/29/24 venlafaxine 50 mg tablet 150 mg PO DAILY 08/12/17 11/29/24 allopurinol 300 mg tablet 300 mg PO DAILY 11/30/19 11/29/24 rizatriptan 5 mg tablet 5 mg PO ONCE PRN Migraine Headache 04/16/20 11/29/24 alendronate 70 mg tablet 70 mg PO .once weekly 11/29/24 11/29/24 carvedilol 6.25 mg tablet mg 11/29/24 cholecalciferol (vitamin D3) 50 50 mcg PO DAILY 11/29/24 11/29/24 mcg (2,000 unit) capsule (D3-2000) cyanocobalamin (vitamin B-12) 1,000 mcg PO DAILY 11/29/24 11/29/24 1,000 mcg capsule escitalopram oxalate 10 mg tablet mg 11/29/24 furosemide 40 mg tablet mg 11/29/24 mv-mn-folic 200 mcg-vit K 15 cap PO DAILY 11/29/24 mcg-lutein 5 mg-zeaxanthin 1 mg capsule (PreserVision AREDS 2 Plus Multivit) potassium chloride 20 mEq meq PO 11/29/24 tablet,extended release valsartan 40 mg tablet mg 11/29/24 Allergies Allergy/AdvReac Type Severity Reaction Status Date / Time amlodipine AdvReac Severe Other (See Unverified 11/29/24 10:12 Comment) lisinopril AdvReac Severe cough Unverified 11/29/24 10:12 suvorexant (From [facility]) AdvReac Severe Unknown Unverified 11/29/24 10:12 General Stated Complaint: SOB MARY: 2 Review of Systems <Charmaine Marin NP - Last Filed: 11/29/24 14:08> All systems reviewed & are unremarkable except as noted in HPI and below Cardiovascular Cardiovascular: Reports chest pain, Reports irregular heart rhythm, Reports radiating jaw, neck or arm pain, Reports palpitations, Reports dyspnea and Reports dyspnea on exertion Respiratory Respiratory: Reports as per HPI, Reports dyspnea and Reports dyspnea on exertion Endocrine Endocrine: Reports palpitations Exam <Charmaine Marin NP - Last Filed: 11/29/24 14:08> Narrative Exam Narrative: Constitutional: Alert and oriented x3. Appears stated age. Normal body habitus. Head: Normocephalic, no trauma. Eyes: Pupils PERRL, Red reflex noted, EOM's intact. Eyelids symmetrical without lesions, discharge, or swelling. ENT: Bilateral TM's WNL, External ear normal to inspection, no mastoid TTP, swelling, or erythema, Nasal turbinates WNL, no nasal discharge. Normal dentition, Posterior pharynx WNL, no exudate. Chest: Initially presents tachycardic with irregular rate A-fib with RVR with a rate of 183, normal S1, S2, distal pulses intact. Resp: Lungs clear to auscultation bilaterally, no wheezes, rales, or rhonchi. Abdomen: Soft, non-distended, Normoactive bowel sounds all 4 quads. Musculoskeletal: Normal gait, Moves all 4 extremities without difficulty. Skin: No suspicious rashes or lesions. Capillary refill less than 2 sec. Neurologic: Cranial nerves II-XII intact. Alert and oriented x 3. Motor: No deficits noted. Sensory: Intact bilaterally all 4 extremities. Hematologic/Lymphatic: No ecchymosis, no lymphadenopathy. Course <Charmaine MarinTOMY - Last Filed: 11/29/24 14:08> Vital Signs Vital signs: Vital Signs Temperature 35.7 C L 11/29/24 09:40 Pulse 183 H 11/29/24 09:40 Respiratory Rate 19 11/29/24 09:40 Blood Pressure 112/74 11/29/24 09:40 Pulse Oximetry 97 11/29/24 09:40 Temperature 35.7 C L 11/29/24 09:40 Temperature Source Tympanic 11/29/24 09:40 Pulse 183 H 11/29/24 09:40 Respiratory Rate 19 11/29/24 09:40 Blood Pressure 112/74 11/29/24 09:40 Pulse Oximetry 97 11/29/24 09:40 Oxygen Delivery Method Room Air 11/29/24 09:40 Oxygen Flow Rate 0 11/29/24 09:40 Lab/Test Results Lab/Test Results: Laboratory Tests Range/Units 11/29/24 09:50 WBC (4.4-10.8) 10^3/uL 6.88 RBC (3.93-5.22) 10^6/uL 4.59 Hgb (11.2-15.7) g/dL 13.8 Hct (36.0-46.0) % 41.0 MCV (80-95) fL 89 MCH (27.0-33.0) pg 30.1 MCHC (32.0-36.0) % 33.7 RDW (11.7-14.6) % 13.2 Plt Count (130-400) 10^3/uL 332 MPV (8.0-11.0) fL 9.8 Immature Gran % % 0.3 Neutrophils % % 57.2 Lymphocytes % % 28.9 Monocytes % % 10.8 Eosinophils % % 1.9 Basophils % % 0.9 Nucleated RBC % (0.0-0.3) % 0.0 Absolute Neutrophils (1.2-6.7) 10^3/uL 3.94 Absolute Lymphocytes (1.2-3.4) 10^3/uL 1.99 Absolute Monocytes (0.1-0.8) 10^3/uL 0.74 Absolute Eosinophils (0.0-0.7) 10^3/uL 0.13 Absolute Basophils (0.0-0.2) 10^3/uL 0.06 Medical Decision Making <Charmaine Marin NP - Last Filed: 11/29/24 14:08> 79-year-old female presents to the ER with a chief complaint of dyspnea dizziness and visual disturbances which have gotten worse since this morning. She reports a few days of brief episodes with palpitations. She presents in atrial fibrillation with RVR no history of A-fib noted. She is not on any blood thinners does not take aspirin daily. She also reports some jaw pain this morning upon awakening. During initial presentation and evaluation she self converted back into a sinus rhythm which is sinus tachycardia. Patient does have a past medical history of memory loss, metoprolol, high cholesterol, NSTEMI, lymphoma, treated with chemotherapy, EKG was reviewed by Dr. Chavez and myself ER attending, atrial fibrillation with rapid ventricular rate. Repeat EKG performed, sinus rhythm rate of 97. Cardiac workup ordered including serial troponins, CBC CMP PT PTT chest x-ray and 324 mg aspirin chewable. CBC shows no leukocytosis white blood cell count 6.80 hemoglobin 13.8 hematocrit 41% which is within normal limits. Contacted Dr. Oneill who is on-call for hospitalist regarding patient case and details he agrees to accept patient for admission due to intermittent atrial fibrillation with RVR. Discussed plan of care with patient and family who verbalized understanding and are in agreement with the plan. Patient transported up to the floor alert and oriented. Remained in normal sinus rhythm throughout the remainder of her stay. D-dimer 772. This text was generated using [employer] system, please disregard any oddities of phrase or misspellings. Medical Records Medical records reviewed: Yes I reviewed the patient's medical records. Lab Data Lab results reviewed: Yes I reviewed the patient's lab results. Labs: Laboratory Tests Range/Units 11/29/24 11/29/24 09:50 10:45 WBC (4.4-10.8) 10^3/uL 6.88 RBC (3.93-5.22) 10^6/uL 4.59 Hgb (11.2-15.7) g/dL 13.8 Hct (36.0-46.0) % 41.0 MCV (80-95) fL 89 MCH (27.0-33.0) pg 30.1 MCHC (32.0-36.0) % 33.7 RDW (11.7-14.6) % 13.2 Plt Count (130-400) 10^3/uL 332 MPV (8.0-11.0) fL 9.8 Immature Gran % % 0.3 Neutrophils % % 57.2 Lymphocytes % % 28.9 Monocytes % % 10.8 Eosinophils % % 1.9 Basophils % % 0.9 Nucleated RBC % (0.0-0.3) % 0.0 Absolute Neutrophils (1.2-6.7) 10^3/uL 3.94 Absolute Lymphocytes (1.2-3.4) 10^3/uL 1.99 Absolute Monocytes (0.1-0.8) 10^3/uL 0.74 Absolute Eosinophils (0.0-0.7) 10^3/uL 0.13 Absolute Basophils (0.0-0.2) 10^3/uL 0.06 PT (9.1-11.1) sec 10.5 INR (0.9-1.1) 1.0 APTT (20.6-30.2) sec 23.9 Sodium (136-145) mmol/L 140 Potassium (3.5-5.1) mmol/L 3.7 Chloride (98-107) mmol/L 102 Carbon Dioxide (21.0-32.0) mmol/L 25.1 Anion Gap (3-11) mmol/L 12.9 H BUN (7-18) mg/dL 16 Creatinine (0.55-1.02) mg/dL 1.0 Est GFR (CKD-EPI 2020) (mL/min/1.73m2) 56.95 Glucose (74-106) mg/dL 155 H Calcium (8.5-10.1) mg/dL 8.8 Magnesium (1.8-2.4) mg/dL 1.9 Total Bilirubin (0.2-1.0) mg/dL 0.5 AST (15-37) U/L 23 ALT (14-59) U/L 26 Alkaline Phosphatase (46-116) U/L 72 Troponin I (<or=51) ng/L 78 H* 70 H* Total Protein (6.4-8.2) g/dL 7.6 Albumin (3.4-5.0) g/dL 3.9 TSH (0.36-3.74) uIU/mL 2.89 <Alexandre Chavez MD - Last Filed: 11/29/24 15:13> Date: 11/29/24 Time: 11:06 Note: Patient was seen with TOMY Marin. I agree with assessment and plan as documented. Initial EKG was reviewed and interpreted by me: Please report, A-fib with RVR 173 bpm. While assessing the patient I was reviewing cardiac cath lab technologist and patient was noted to spontaneously cardiovert to a sinus tachycardia. Patient does note some recent jaw pain. Of note history is limited secondary to memory challenges. Initial troponin is slightly elevated. This may be related to her tachycardic rate versus acute coronary syndrome. Plan to hospitalize for further trending. Other labs reviewed and no significant electrolyte abnormalities. TSH normal. Patient has been taking her Xarelto and metoprolol as prescribed. We will continue to monitor heart rate and consider adjustments of her beta-fazal. PFSH <Charmaine Marin NP - Last Filed: 11/29/24 14:08> All Active Problems Anxiety disorder (Acute) DVT prophylaxis (Acute) Chemotherapy-induced cardiomyopathy (Acute) Intermittent atrial fibrillation (Acute) Hypoxemia (Acute) Breath shortness (Acute) Pleural effusion (Acute) Non-ST elevation GA (NSTEMI) (Acute) Elevated troponin (Acute) Port-A-Cath in place (Chronic) infusaport Discharge planning issues (Acute) Hypertension (Chronic) Cervical lymphadenopathy (Acute) Neoplasm of unspecified behavior of bone, soft tissue, and skin (Acute) History of basal cell cancer (Acute) Neck mass (Acute) Headache above the eye region (Acute) Pilar cyst (Acute) Medical History Diffuse large B cell lymphoma Acute pulmonary embolism Sensory hearing loss, bilateral (01/22/14) Basal cell carcinoma of skin of other parts of face (07/14/17) Surgical History S/P lymph node biopsy Family History Father Heart disease Cancer lung Mother Diabetes Cancer breast Brother Hypertension Cancer lymphoma Sister Hypertension Cancer breast Niece Cancer ? type Social History Smoking/Tobacco Use Status: Former Tobacco Use Smoking risk assessment performed?: Yes Alcohol Intake: never Drug use: Never Substance use type: does not use Do you feel safe at home: Yes Do you feel safe in your relationship?: Yes
[2024-11-29] MEDS: Aspirin 81 MG CHEW 324 MG CH (10:04)
[2024-11-29 10:10] LABS: INR 1.0 (0.9-1.1); PTT Activated 23.9 sec (20.6-30.2); Prothrombin Time 10.5 sec (9.1-11.1)
[2024-11-29] MEDS: Normal Saline 500 ML IV ×2 (10:14→11:52)
[2024-11-29 10:15] LABS: ALT 26 U/L (14-59); AST 23 U/L (15-37); Albumin 3.9 g/dL (3.4-5.0); Alkaline Phosphatase 72 U/L (46-116); Anion Gap 12.9 mmol/L (3-11); BUN 16 mg/dL (7-18); Bilirubin, Total 0.5 mg/dL (0.2-1.0); CO2 25.1 mmol/L (21.0-32.0); Calcium 8.8 mg/dL (8.5-10.1); Chloride 102 mmol/L (98-107); Estimated GFR 56.95 (mL/min/1.73m2); Glucose 155 mg/dL (74-106); Magnesium 1.9 mg/dL (1.8-2.4); Potassium 3.7 mmol/L (3.5-5.1); Sodium 140 mmol/L (136-145); Total Protein 7.6 g/dL (6.4-8.2)
[2024-11-29 10:16] LABS: Troponin I 78 ng/L (<or=51)
[2024-11-29 10:21] LABS: TSH (W/Ref FT4) 2.89 uIU/mL (0.36-3.74)
--- NOTE | 2024-11-29 10:35 | DI.RAD_ITS ---
Exam(s) XR CHEST 2V PA LATERAL EXAM: XR CHEST 2V PA LATERAL CLINICAL HISTORY: Chest pain TECHNIQUE: 2D digital imaging was performed of the chest. Two images were obtained. AP and lateral views were obtained. COMPARISON: CR XR PORTABLE CHEST AP from 11/29/2019 FINDINGS: MEDIASTINUM: Normal. HEART: Normal. PULMONARY VASCULATURE: Normal. LUNGS: Clear. PLEURAL SPACE: No pleural effusion or pneumothorax. BONE:Within normal limits for the patient's age. OTHER FINDINGS:Normal. IMPRESSION: No acute pulmonary findings. DATA REPOSITORY: RADIATION DOSE DELIVERED:
[2024-11-29 11:15] LABS: Troponin I 70 ng/L (<or=51)
--- NOTE | 2024-11-29 12:23 | W.PM.HP.N ---
Date of service: 11/29/24 Time of Service: 14:18 Assessment and Plan Assessment and plan (1) Intermittent atrial fibrillation: Status: Acute Assessment and plan: New onset. Per history this may have been happening off/on for weeks. She is at risk given her history of cardiomyopathy. Otherwise no clear trigger, should assess for PE given her history, d-dimer reassuring for age. TSH normal. Already on carvedilol, denies missing doses. Could consider change to metoprolol for more rate vs BP control. [id number] score is 4, discussed anticoagulation, will start apixaban. Echo today, if LVEF worse she may benefit from rhythm control, but not immediately given uncertain time course of onset. (2) Elevated troponin: Status: Acute Assessment and plan: EKG not c/w acute ischemia, troponins mildly elevated but not significantly changing. Not c/w ACS, likely secondary to rate in setting of cardiomyopathy. Follow. Tele. (3) Chemotherapy-induced cardiomyopathy: Status: Acute Assessment and plan: Recently more symptomatic, repeat echo ordered by Dr. Posada as outpatient but not done. I am concerned for worsening of cardiomyopathy, with some hypotension in the ED that did not respond to IV fluids. Echo ordered STAT If BP remains low, we may need to transfer to ICU and use norepinephrine. (4) Hypertension: Status: Chronic Assessment and plan: Continue carvedilol and hold valsartan with low BPs. (5) Diffuse large B cell lymphoma: Assessment and plan: In remission since 2020, has regular oncology follow up. (6) Anxiety disorder: Status: Acute Assessment and plan: I confirmed she has been on both SNRI and SSRI chronically, both at moderate doses. There is no signs of seratonin syndrome that could have triggered atrial fibillation. Will continue for now. (7) DVT prophylaxis: Status: Acute Assessment and plan: starting apixaban for stroke prevention in atrial fibrillation (8) Discharge planning issues: Status: Acute Assessment and plan: anticipated 1-2 days of cardiac monitoring and medication adjustments History of Present Illness History of Present Illness Chief Complaint: lightheaded Narrative: 79 yo F with history of B-cell lymphoma s/p R-CHOP in complicated by PE and chemotherapy induced cardiomyopathy with LVEF 40-45%, HTN, and HLD who presented with lightheadedness and shortness of breath when she woke up this morning. She denies chest pain/pressure or palpitations. Her vision does feel more off during the episodes. She has had similar feeling several times over the past 2 months, especially in the morning, but this episodes seemed worse and lasted longer. She feels better now. Initial evaluation in the ED revealed new onset atrial fibrillation with RVR. She converted back to NSR before any medications were given. Her blood pressure has been running low in 80s/40s-50s. This is not normal for her. She was given two 500ml boluses of normal saline without a clear improvement in her blood pressure. Of note, she had type 2 NSTEMI in 2020 when she was diagnosed with cardiomyopathy, nuclear MPI for focal ischemia was negative. Review of Systems All systems reviewed & are unremarkable except as noted in HPI and below Hematologic/Lymphatic Hematologic/Lymphatic: Denies easy bleeding, Denies easy bruising and Denies lymphadenopathy Comments: night sweats chronically PFSH All Active Problems Anxiety disorder (Acute) DVT prophylaxis (Acute) Chemotherapy-induced cardiomyopathy (Acute) Intermittent atrial fibrillation (Acute) Hypoxemia (Acute) Breath shortness (Acute) Pleural effusion (Acute) Non-ST elevation MS (NSTEMI) (Acute) Elevated troponin (Acute) Port-A-Cath in place (Chronic) infusaport Discharge planning issues (Acute) Cervical lymphadenopathy (Acute) Neoplasm of unspecified behavior of bone, soft tissue, and skin (Acute) History of basal cell cancer (Acute) Neck mass (Acute) Headache above the eye region (Acute) Pilar cyst (Acute) Hypertension (Chronic) Medical History Diffuse large B cell lymphoma Acute pulmonary embolism Sensory hearing loss, bilateral (01/22/14) Basal cell carcinoma of skin of other parts of face (07/14/17) Surgical History S/P lymph node biopsy Family History Father Heart disease Cancer lung Mother Diabetes Cancer breast Brother Hypertension Cancer lymphoma Sister Hypertension Cancer breast Niece Cancer ? type Social History Smoking/Tobacco Use Status: Former Tobacco Use Smoking risk assessment performed?: Yes Alcohol Intake: never Drug use: Never Substance use type: does not use Do you feel safe at home: Yes Do you feel safe in your relationship?: Yes Meds Allergies and Home Medications Allergies Allergy/AdvReac Type Severity Reaction Status Date / Time amlodipine AdvReac Severe Other (See Unverified 11/29/24 10:12 Comment) lisinopril AdvReac Severe cough Unverified 11/29/24 10:12 suvorexant (From [facility]) AdvReac Severe Unknown Unverified 11/29/24 10:12 Home Medications ?Medication ?Instructions ?Recorded ?Confirmed ?Type lovastatin 20 mg tablet 40 mg PO DAILY 08/02/12 11/29/24 History zolpidem 10 mg tablet 5 mg PO HS PRN PRN 01/26/14 11/29/24 History venlafaxine 50 mg tablet 150 mg PO DAILY 08/12/17 11/29/24 History allopurinol 300 mg tablet 300 mg PO DAILY 11/30/19 11/29/24 History rizatriptan 5 mg tablet 5 mg PO ONCE PRN Migraine Headache 04/16/20 11/29/24 History alendronate 70 mg tablet 70 mg PO .once weekly 11/29/24 11/29/24 History carvedilol 6.25 mg tablet mg 11/29/24 History cholecalciferol (vitamin D3) 50 50 mcg PO DAILY 11/29/24 11/29/24 History mcg (2,000 unit) capsule (D3-2000) cyanocobalamin (vitamin B-12) 1,000 mcg PO DAILY 11/29/24 11/29/24 History 1,000 mcg capsule escitalopram oxalate 10 mg tablet mg 11/29/24 History furosemide 40 mg tablet mg 11/29/24 History mv-mn-folic 200 mcg-vit K 15 cap PO DAILY 11/29/24 History mcg-lutein 5 mg-zeaxanthin 1 mg capsule (PreserVision AREDS 2 Plus Multivit) potassium chloride 20 mEq meq PO 11/29/24 History tablet,extended release valsartan 40 mg tablet mg 11/29/24 History Exam Narrative Exam Narrative: GEN: Alert and oriented x 3, but forgetful of recent past. Stting up in bed. Pleasant and cooperative, gives linear history but minimal details. No acute distress at rest. HEENT: Head atraumatic. Conjunctiva clear, no icterus. PEERL, EOMI. no rhinorrhea. MMM, OP benign. Neck is supple with no masses or lymphadenopathy, trachea midline LUNGS: CTAB with normal effort CV: RRR with no murmurs, gallops, or rubs. No elevation JVP. ABD: active bowel sounds, soft, nontender and nondistended. No masses. EXT: no cyanosis, clubbing, or edema. Legs not tender. LYMPH: No prominent LAD neck, axilla, groin MSK: No joint redness or swelling NEURO: CN 2-12 grossly intact, including visual tapia to confrontation. FNF intact, symmetric. Normal movement of 4 extremities. Normal speech and coordination. No tremor SKIN: No rashes or open wounds. PSYCH: normal mood and affect Results Labs 11/29/24 09:50 11/29/24 09:50 Labs: Laboratory Results - last 24 hr 11/29/24 11/29/24 09:50 10:45 WBC 6.88 RBC 4.59 Hgb 13.8 Hct 41.0 MCV 89 MCH 30.1 MCHC 33.7 RDW 13.2 Plt Count 332 MPV 9.8 Immature Gran % 0.3 Neutrophils % 57.2 Lymphocytes % 28.9 Monocytes % 10.8 Eosinophils % 1.9 Basophils % 0.9 Nucleated RBC % 0.0 Absolute Neutrophils 3.94 Absolute Lymphocytes 1.99 Absolute Monocytes 0.74 Absolute Eosinophils 0.13 Absolute Basophils 0.06 PT 10.5 INR 1.0 APTT 23.9 Sodium 140 Potassium 3.7 Chloride 102 Carbon Dioxide 25.1 Anion Gap 12.9 H BUN 16 Creatinine 1.0 Est GFR (CKD-EPI 2020) 56.95 Glucose 155 H Calcium 8.8 Magnesium 1.9 Total Bilirubin 0.5 AST 23 ALT 26 Alkaline Phosphatase 72 Troponin I 78 H* 70 H* Total Protein 7.6 Albumin 3.9 TSH 2.89 Last Vital Signs Temp 35.7 C L 11/29/24 10:06 Pulse 74 11/29/24 12:14 Resp 19 11/29/24 12:14 BP 77/47 L 11/29/24 12:11 Pulse Ox 98 11/29/24 12:14 Time Spent Time spent with Patient: >75 minutes Time was spent: preparing to see the patient(eg.review tests), obtaining and/or reviewing separately otained hiistory, ordering medications,tests, procedures, referring, communicating with other health ambulatory care nurse, indepentently interpreting results, counseling the patient and care coordination
[2024-11-29 13:02] LABS: D-Dimer 772 ng/mlFEU (<500)
[2024-11-29 13:27] LABS: Troponin I 81 ng/L (<or=51)
--- NOTE | 2024-11-29 13:42 | W.PC.ACHO ---
Registration Status: REG ER Primary Language: Preferred Language: Hungarian ED Information & Data Chief Complaint SOB 11/29/24 10:00 Triage Note pt woke up this morning 11/29/24 09:40 feeling dizzy when walking down the [place]. experienced CP/SANDERS. CP is gone but feels fatigued. slept well last night. has been feeling more SOB with dizzy spells over past few days. typical appetite. jordan spots in vision with dizzy spells. memory loss is increasing. Medical / Surgical History (Last Updated 11/29/24 @ 12:35 by Chente Burger) Sensory hearing loss, bilateral (01/22/14) Basal cell carcinoma of skin of other parts of face (07/14/17) Diffuse large B cell lymphoma Acute pulmonary embolism (Last Reviewed 11/29/24 @ 10:08 by Charmaine Marin NP) S/P lymph node biopsy Most Recent Vital Signs Temperature 35.7 C L 11/29/24 10:06 Temperature Source Tympanic 11/29/24 10:06 Pulse 77 11/29/24 13:30 Respiratory Rate 16 11/29/24 13:34 Respiratory Effort Normal 11/29/24 10:06 Respiratory Depth Normal 11/29/24 10:06 Respiratory Pattern Normal 11/29/24 10:06 Blood Pressure 73/42 L 11/29/24 13:30 Blood Pressure Mean 48 11/29/24 13:30 Blood Pressure Position Supine 11/29/24 10:06 Pulse Oximetry 98 11/29/24 13:06 Oxygen Delivery Method Room Air 11/29/24 10:06 Oxygen Flow Rate 0 11/29/24 09:40 Pain Level 0 11/29/24 10:06 Allergies amlodipine Adverse Reaction (Severe, Unverified 11/29/24 10:12) Other (See Comment) lisinopril Adverse Reaction (Severe, Unverified 11/29/24 10:12) cough suvorexant (From [facility]) Adverse Reaction (Severe, Unverified 11/29/24 10:12) Unknown IV IV Catheter Type [Left Saline Lock Antecubital] IV Catheter Type [Right Saline Lock Antecubital] IV Catheter Gauge [Left 18 Antecubital] IV Catheter Gauge [Right 18 Antecubital] Diet Orders Category Date Time Status Heart Healthy Eating [DIET] Nutrition 11/29/24 Dinner Active Diagnostics 11/29/24 11/29/24 11/29/24 Range/Units 15:46 12:44 12:20 WBC (4.4-10.8) 10^3/uL RBC (3.93-5.22) 10^6/uL Hgb (11.2-15.7) g/dL Hct (36.0-46.0) % MCV (80-95) fL MCH (27.0-33.0) pg MCHC (32.0-36.0) % RDW (11.7-14.6) % Plt Count (130-400) 10^3/uL MPV (8.0-11.0) fL Immature Gran % % Neutrophils % % Lymphocytes % % Monocytes % % Eosinophils % % Basophils % % Nucleated RBC % (0.0-0.3) % Absolute Neutrophils (1.2-6.7) 10^3/uL Absolute Lymphocytes (1.2-3.4) 10^3/uL Absolute Monocytes (0.1-0.8) 10^3/uL Absolute Eosinophils (0.0-0.7) 10^3/uL Absolute Basophils (0.0-0.2) 10^3/uL PT (9.1-11.1) sec INR (0.9-1.1) APTT (20.6-30.2) sec D-Dimer 772 H (<500) ng/mlFEU Sodium (136-145) mmol/L Potassium (3.5-5.1) mmol/L Chloride (98-107) mmol/L Carbon Dioxide (21.0-32.0) mmol/L Anion Gap (3-11) mmol/L BUN (7-18) mg/dL Creatinine (0.55-1.02) mg/dL Est GFR (CKD-EPI 2020) (mL/min/1.73m2) Glucose (74-106) mg/dL Calcium (8.5-10.1) mg/dL Magnesium (1.8-2.4) mg/dL Total Bilirubin (0.2-1.0) mg/dL AST (15-37) U/L ALT (14-59) U/L Alkaline Phosphatase (46-116) U/L Troponin I Cancelled 81 H* (<or=51) ng/L Total Protein (6.4-8.2) g/dL Albumin (3.4-5.0) g/dL TSH (0.36-3.74) uIU/mL 11/29/24 11/29/24 Range/Units 10:45 09:50 WBC 6.88 (4.4-10.8) 10^3/uL RBC 4.59 (3.93-5.22) 10^6/uL Hgb 13.8 (11.2-15.7) g/dL Hct 41.0 (36.0-46.0) % MCV 89 (80-95) fL MCH 30.1 (27.0-33.0) pg MCHC 33.7 (32.0-36.0) % RDW 13.2 (11.7-14.6) % Plt Count 332 (130-400) 10^3/uL MPV 9.8 (8.0-11.0) fL Immature Gran % 0.3 % Neutrophils % 57.2 % Lymphocytes % 28.9 % Monocytes % 10.8 % Eosinophils % 1.9 % Basophils % 0.9 % Nucleated RBC % 0.0 (0.0-0.3) % Absolute Neutrophils 3.94 (1.2-6.7) 10^3/uL Absolute Lymphocytes 1.99 (1.2-3.4) 10^3/uL Absolute Monocytes 0.74 (0.1-0.8) 10^3/uL Absolute Eosinophils 0.13 (0.0-0.7) 10^3/uL Absolute Basophils 0.06 (0.0-0.2) 10^3/uL PT 10.5 (9.1-11.1) sec INR 1.0 (0.9-1.1) APTT 23.9 (20.6-30.2) sec D-Dimer (<500) ng/mlFEU Sodium 140 (136-145) mmol/L Potassium 3.7 (3.5-5.1) mmol/L Chloride 102 (98-107) mmol/L Carbon Dioxide 25.1 (21.0-32.0) mmol/L Anion Gap 12.9 H (3-11) mmol/L BUN 16 (7-18) mg/dL Creatinine 1.0 (0.55-1.02) mg/dL Est GFR (CKD-EPI 2020) 56.95 (mL/min/1.73m2) Glucose 155 H (74-106) mg/dL Calcium 8.8 (8.5-10.1) mg/dL Magnesium 1.9 (1.8-2.4) mg/dL Total Bilirubin 0.5 (0.2-1.0) mg/dL AST 23 (15-37) U/L ALT 26 (14-59) U/L Alkaline Phosphatase 72 (46-116) U/L Troponin I 70 H* 78 H* (<or=51) ng/L Total Protein 7.6 (6.4-8.2) g/dL Albumin 3.9 (3.4-5.0) g/dL TSH 2.89 (0.36-3.74) uIU/mL Intake and Output - 24 Hour Total 11/29/24 09:39 thru 11/29/24 11:32 Intake Total 500 Balance 500 Weight 74 kg Intake: IV 500 Falls Risk Assessment History of Falls No History 11/29/24 10:06 Contributing Factors Unstable 11/29/24 10:06 Ambulatory Aids Independent 11/29/24 10:06 Tubes/Lines None 11/29/24 10:06 Gait Evaluation No gait disturbance 11/29/24 10:06 Cognition No cognitive impairment 11/29/24 10:06 Fall Total Score 3 11/29/24 10:06 Level of Risk Standard/Low Risk 11/29/24 10:06 Problems (Last Updated 11/29/24 @ 12:35 by Chente Burger) Anxiety disorder (Acute) DVT prophylaxis (Acute) Chemotherapy-induced cardiomyopathy (Acute) Intermittent atrial fibrillation (Acute) Discharge planning issues (Acute) Hypertension (Chronic) v v v v v v v v v Sending and/or Receiving Nurses: Please use comment section below to note any information pertinent to the patient hand-off not included above. Information / Comments: Report received from: Tania ENGILSH, from ED at 1342
[2024-11-29] MEDS: Apixaban 5 MG TAB PO (19:48)
[2024-11-29] MEDS: Carvedilol 6.25 MG TAB PO (19:48)
[2024-11-29] MEDS: Zolpidem 10 MG TAB 5 MG PO (19:52)
[2024-11-29] MEDS: Normal Saline Flush 10 ML SYR IVP (20:01)
[2024-11-30 06:08] LABS: Anion Gap 9.1 mmol/L (3-11); BUN 12 mg/dL (7-18); CO2 24.9 mmol/L (21.0-32.0); Calcium 8.2 mg/dL (8.5-10.1); Chloride 108 mmol/L (98-107); Estimated GFR 87.37 (mL/min/1.73m2); Glucose 101 mg/dL (74-106); Potassium 3.6 mmol/L (3.5-5.1); Sodium 142 mmol/L (136-145)
[2024-11-30 06:14] LABS: Hemoglobin A1C 6.0 % (<5.7)
[2024-11-30 07:51] LABS: Calculated LDL 80 mg/dL (<100); Cholesterol 151 mg/dL (<200); HDL Cholesterol 52 mg/dL (>or=50); Triglyceride 95 mg/dL (<150)
[2024-11-30 07:55] LABS: Troponin I 99 ng/L (<or=51)
[2024-11-30 08:02] VITALS: BP 120/71; PULSE 78; RESP 16; TEMP 37; O2SAT 96
[2024-11-30] MEDS: Carvedilol 6.25 MG TAB PO (08:20)
[2024-11-30] MEDS: Furosemide 40 MG TAB PO (08:20)
[2024-11-30] MEDS: Venlafaxine 50 MG TAB 150 MG PO (08:20)
[2024-11-30] MEDS: Potassium Chloride 20 MEQ TABCR PO (08:20)
[2024-11-30] MEDS: Cyanocobalamin 500 MCG TAB 1000 MCG PO (08:20)
[2024-11-30] MEDS: Cholecalciferol (Vitamin D3) 1,000 UNIT TAB 2000 UNITS PO (08:20)
[2024-11-30] MEDS: Apixaban 5 MG TAB PO (08:20)
[2024-11-30] MEDS: Normal Saline Flush 10 ML SYR IVP (08:20)
--- NOTE | 2024-11-30 08:57 | W.PM.PROGNOT ---
Date of Service Date of service: 11/30/24 Time of Service: 08:57 Assessment and Plan Assessment and plan (1) Intermittent atrial fibrillation: Status: Acute Assessment and plan: New onset. Per history this may have been happening off/on for weeks. She is at risk given her history of cardiomyopathy. Otherwise no clear trigger, should assess for PE given her history, d-dimer reassuring for age. TSH normal. Already on carvedilol, denies missing doses. Could consider change to metoprolol for more rate vs BP control. [id number] score is 4, discussed anticoagulation, will start apixaban. Echo today, if LVEF worse she may benefit from rhythm control, but not immediately given uncertain time course of onset. (2) Elevated troponin: Status: Acute Assessment and plan: EKG not c/w acute ischemia, troponins mildly elevated but not significantly changing. Not c/w ACS, likely secondary to rate in setting of cardiomyopathy. Follow. Tele. (3) Chemotherapy-induced cardiomyopathy: Status: Acute Assessment and plan: Recently more symptomatic, repeat echo ordered by Dr. Posada as outpatient but not done. I am concerned for worsening of cardiomyopathy, with some hypotension in the ED that did not respond to IV fluids. Echo ordered STAT If BP remains low, we may need to transfer to ICU and use norepinephrine. (4) Hypertension: Status: Chronic Assessment and plan: Continue carvedilol and hold valsartan with low BPs. (5) Diffuse large B cell lymphoma: Assessment and plan: In remission since 2020, has regular oncology follow up. (6) Anxiety disorder: Status: Acute Assessment and plan: I confirmed she has been on both SNRI and SSRI chronically, both at moderate doses. There is no signs of seratonin syndrome that could have triggered atrial fibillation. Will continue for now. (7) DVT prophylaxis: Status: Acute Assessment and plan: starting apixaban for stroke prevention in atrial fibrillation (8) Discharge planning issues: Status: Acute Assessment and plan: anticipated 1-2 days of cardiac monitoring and medication adjustments Subjective Subjective Patient reports: feels better, bowel movement and other (reporting sleeping well, tolerating enteral intake w/o nausea vomiting. Denies chest pain); denies diarrhea, blood in stool, shortness of breath or fever Objective Last Vital Signs Temp 37.0 C 11/30/24 08:02 Pulse 78 11/30/24 08:02 Resp 16 11/30/24 08:02 BP 120/71 11/30/24 08:02 Pulse Ox 96 11/30/24 08:02 Laboratory Results - last 24 hr 11/29/24 11/29/24 11/29/24 09:50 10:45 12:20 WBC 6.88 RBC 4.59 Hgb 13.8 Hct 41.0 MCV 89 MCH 30.1 MCHC 33.7 RDW 13.2 Plt Count 332 MPV 9.8 Immature Gran % 0.3 Neutrophils % 57.2 Lymphocytes % 28.9 Monocytes % 10.8 Eosinophils % 1.9 Basophils % 0.9 Nucleated RBC % 0.0 Absolute Neutrophils 3.94 Absolute Lymphocytes 1.99 Absolute Monocytes 0.74 Absolute Eosinophils 0.13 Absolute Basophils 0.06 PT 10.5 INR 1.0 APTT 23.9 D-Dimer 772 H Sodium 140 Potassium 3.7 Chloride 102 Carbon Dioxide 25.1 Anion Gap 12.9 H BUN 16 Creatinine 1.0 Est GFR (CKD-EPI 2020) 56.95 Glucose 155 H Hemoglobin A1c Calcium 8.8 Magnesium 1.9 Total Bilirubin 0.5 AST 23 ALT 26 Alkaline Phosphatase 72 Troponin I 78 H* 70 H* Total Protein 7.6 Albumin 3.9 Triglycerides Total Cholesterol LDL Cholesterol, Calc HDL Cholesterol TSH 2.89 11/29/24 11/29/24 11/30/24 12:44 15:46 05:25 WBC RBC Hgb Hct MCV MCH MCHC RDW Plt Count MPV Immature Gran % Neutrophils % Lymphocytes % Monocytes % Eosinophils % Basophils % Nucleated RBC % Absolute Neutrophils Absolute Lymphocytes Absolute Monocytes Absolute Eosinophils Absolute Basophils PT INR APTT D-Dimer Sodium 142 Potassium 3.6 Chloride 108 H Carbon Dioxide 24.9 Anion Gap 9.1 BUN 12 Creatinine 0.7 Est GFR (CKD-EPI 2020) 87.37 Glucose 101 Hemoglobin A1c 6.0 H Calcium 8.2 L Magnesium Total Bilirubin AST ALT Alkaline Phosphatase Troponin I 81 H* Cancelled 99 H* Total Protein Albumin Triglycerides 95 Total Cholesterol 151 LDL Cholesterol, Calc 80 HDL Cholesterol 52 TSH
--- NOTE | 2024-11-30 09:28 | PDOC.CMIN ---
Date of service: 11/30/24 Time of Service: 09:28 Care Management Initial Assmt Initial Assessment Reason for Hospitalization: atrial fibrillation Functional Status/Living Situation Town of Residence: [facility] Resides with: Child Significant Other/Family: Out of area Employment Status: Retired Instrumental Activities of Daily Living (ADLs): Independent Medications Medication Management: No Issues/Barriers identified Advance Directives Advance Directives: Do you have an Advance Directive: Y 05/05/23, 19:[address] [facility]: Y 05/05/23, 19:09 Date Asked 05/05/23 Today, 07:35 AD Date Reviewed 11/29/24 11/29/24, 10:[address] [facility] COLST Date Scanned Code Status Resuscitation Status Full Code Insurance Coverage/Financial Issues Insurance: BC/BS Medicare Advantage Care Team Visit Care Team Role Provider Type Radha Urena APRN MD [facility] STAFF PHYSICIAN Janeth Tillman MD Primary Care Provider [facility] STAFF PHYSICIAN Charmaine Marin, TOMY Emergency Provider NURSE PRACTITIONER Chente Burger Admit Provider [facility] STAFF PHYSICIAN Attending Provider Discharge Potential Discharge Needs: PCP F/U Appt Anticipated Barriers to Discharge: None Identified Patient/Family Education Needs: Review discharge instructions, discuss Ask Me Three Transportation: Private vehicle Plan: Anticipate Tierra will be discharged home with no new services when medically cleared. She will follow up with her PCP and plan of care and transport with family. CM will follow and continue to [facility] discharge planning efforts. Social Determinants of Health Screening Will the Patient Participate in the Screening?: Unable to obtain Do you worry about having a steady place to live?: no In the past 12 months, have you had to go without electric, gas, oil or water in your home?: no Has lack of transportation kept you from medical appointments or from doing things needed for daily living?: no Has anyone in your life made you feel unsafe or unsupported?: no How hard is it for you to pay for the very basics like food, housing, medical care, and heating? Would you say it is:: Not hard at all Do you want help finding or keeping work or a job?: I do not need or want help If for any reason you need help with day-to-day activities such as bathing, preparing meals, shopping, managing finances, etc., do you get the help you need?: I don?t need any help How often do you feel lonely or isolated from those around you?: Never Do you speak a language other than Vietnamese at home?: No Does the patient want assistance with any of the above?: No PFSH All Active Problems Anxiety disorder (Acute) DVT prophylaxis (Acute) Chemotherapy-induced cardiomyopathy (Acute) Intermittent atrial fibrillation (Acute) Hypoxemia (Acute) Breath shortness (Acute) Pleural effusion (Acute) Non-ST elevation [place] (NSTEMI) (Acute) Elevated troponin (Acute) Port-A-Cath in place (Chronic) infusaport Discharge planning issues (Acute) Hypertension (Chronic) Cervical lymphadenopathy (Acute) Neoplasm of unspecified behavior of bone, soft tissue, and skin (Acute) History of basal cell cancer (Acute) Neck mass (Acute) Headache above the eye region (Acute) Pilar cyst (Acute) Medical History Diffuse large B cell lymphoma Acute pulmonary embolism Sensory hearing loss, bilateral (01/22/14) Basal cell carcinoma of skin of other parts of face (07/14/17) Surgical History S/P lymph node biopsy Family History Father Heart disease Cancer lung Mother Diabetes Cancer breast Brother Hypertension Cancer lymphoma Sister Hypertension Cancer breast Niece Cancer ? type Social History Smoking/Tobacco Use Status: Former Tobacco Use Smoking risk assessment performed?: Yes Alcohol Intake: never Drug use: Never Substance use type: does not use Housing: house Do you feel safe at home: Yes Do you feel safe in your relationship?: Yes
--- NOTE | 2024-11-30 10:59 | DSE_ITS ---
Date of service: 11/30/24 Time of Service: 11:02 DS: Diagnosis Discharge Diagnosis (1) Intermittent atrial fibrillation: Status: Acute (2) Elevated troponin: Status: Acute (3) Chemotherapy-induced cardiomyopathy: Status: Acute (4) Hypertension: Status: Chronic (5) Diffuse large B cell lymphoma: (6) Anxiety disorder: Status: Acute (7) DVT prophylaxis: Status: Acute (8) Discharge planning issues: Status: Acute Discharge Plan Disposition Patient Disposition: Home W/Home Health Services Condition: Improving Discharge Details Reason For Visit: New Atrial Fibrillation, Elevated Troponins Admit Date/Time: 11/29/24 12:43 Admit Provider: Chente Burger Attending Provider: Chente Burger [facility]: 79-year-old female patient with a past medical history of B-cell lymphoma s/p R- [facility]OP in , with subsequent pulmonary embolism not on DOAC , HFmrEF, presented to the ER on 11/29/24 with a chief complaint of worsening dyspnea dizziness,intermitent episodes of palpitation over the past few days, jaw pain in AM and visual disturbances since the morning. She reports a few days of brief episodes with palpitations. She was found to have new atrial fibrillation with RVR HR 173-183 as per EKG w/o signs of coronary occlusion but was hypotensive not reponsding to IVF boluses. D-dimer was normal when corrected for age. Blood work unremarkable except for troponin 78 then 70 The patient converted to sinus tachycardia in the ED but remained hypotensive. The patient was admitted to the medical surgical floor for observation hypotension, A-fib RVR, and troponin trend by the hospitalist. Troponin remained flat as per 9 hour-delta of 5 w/o symptoms of ACS. Blood pressure medicines were held then adjusted s/p improving blood pressures and echo result showing LVEF 45% similar to the last echocardiogram, no major RV strain- PASP 22 mmHg. The patient will be discharged home with PCP follow up within 7 days of discharge and will need a referral to cardiology. Her A1c was in the pre-diabetic range at 6.0%. Her LDL was 80 on low intensity statin, trial on higher intensity should be considered with PCP/recruiting administrator. The patient's blood pressure was stable in the low normal range during the time she was on the floor. Her troponins remained mildly elevated without chest pain. Her valsartan was held and furosemide decreased until she follows up with her recruiting administrator Dr. Posada. Discussed with Dr. Burger Recommendations for Follow Up Recommended tests to be ordered by follow up provider: Cardiology referral, Valsartan on hold/stopped , furosemide decreased to 20 mg orally daily , on Carvedilol and NEW Eliquis Home Meds and New Rx's Prescriptions: New Eliquis 5 mg Tablet 5 mg PO BID Qty: 60 0RF Continued lovastatin 20 MG tablet 40 mg PO DAILY zolpidem 10 MG tablet 5 mg PO HS PRN PRN rizatriptan 5 mg Tablet 5 mg PO ONCE MDD may repeat once in two hours PRN (Reason: Migraine Headache) venlafaxine 50 MG tablet 150 mg PO DAILY allopurinol 300 mg tablet 300 mg PO DAILY Patient Comments: TAKE ONE TABLET BY MOUTH DAILY alendronate 70 mg tablet 70 mg PO .once weekly Patient Comments: TAKE ONE TABLET BY MOUTH ONCE WEEKLY potassium chloride 20 mEq tablet extended release 20 meq PO DAILY Patient Comments: TAKE ONE TABLET BY MOUTH EVERY DAY carvedilol 6.25 mg tablet 6.25 mg PO BID Patient Comments: TAKE ONE TABLET BY MOUTH TWICE A DAY escitalopram oxalate 10 mg tablet 10 mg PO DAILY Patient Comments: TAKE ONE TABLET BY MOUTH EVERY DAY WITH VENLAFAXINE cyanocobalamin (vitamin B-12) 1,000 mcg capsule 1,000 mcg PO DAILY PreserVision AREDS 2 Plus MV 200 mcg-15 mcg- 5 mg-1 mg capsule 1 cap PO DAILY cholecalciferol (vitamin D3) [D3-2000] 50 mcg (2,000 unit) capsule 50 mcg PO DAILY Changed furosemide 40 mg tablet 20 mg PO DAILY Qty: 0 0RF Patient Comments: TAKE ONE TABLET BY MOUTH EVERY DAY Discontinued valsartan 40 mg tablet 40 mg PO BID Patient Comments: TAKE ONE TABLET BY MOUTH TWICE A DAY Discharge Instructions Stand Alone Forms: Nursing Discharge Form Referrals: Janeth Tillman MD [Primary Care Provider, Medicine] Referral Note: Follow-up within 7 days of discharge - needs a referral to cardiology . Your PCP will give you a call to make a follow up appointment, if you do not hear from your PCP please give them a call. Activity:: Activity as Tolerated Equipment/Supplies:: No Equipment Needed Diet:: heart healthy diabetic Discharge Orders Discharge Orders: Discharge Order (Routine); Ordered 11/30/24 Ordered By: Radha Urena Discharge Data Discharge Date/Time-TO BE ENTERED AT DEPARTURE: 11/30/24 16:47 DS: Summary Time Spent with Patient providing and/or coordinating discharge services: Greater than 30 minutes Status at Discharge Functional status at discharge: independent ambulation Overall status at discharge: patient is progressing back to baseline Mental Status: mental status grossly normal Speech and Movement: speech and movement normal Mood: congruent mood and anxious mood Affect: normal affect and anxious affect Exam Narrative Exam Narrative: Alert and oriented X4, mildly anxious, no focal neurological deficit, negative NIH scale, moves all 4 ext equally, non-icteric sclera, normocephalic, atraumatic, unlabored breathing, clear lungs, S1,S2, regular, SR on telemetry, abdomen in non-distended, soft , non-tender, bowel sounds are present, no CVA tenderness Psych Mental Status: mental status grossly normal Speech and Movement: speech and movement normal Mood: congruent mood and anxious mood Affect: normal affect and anxious affect DS: Data Vitals/I&O Vitals and I&O: Vital Signs Temperature 37.0 C 11/30/24 08:02 Temperature Source Temporal Artery Scan 11/30/24 08:02 Pulse 78 11/30/24 08:02 Respiratory Rate 16 11/30/24 08:02 Respiratory Effort Normal 11/29/24 15:20 Respiratory Depth Normal 11/29/24 15:20 Respiratory Pattern Normal 11/29/24 15:20 Blood Pressure 120/71 11/30/24 08:02 Blood Pressure Mean 87 11/30/24 08:02 Blood Pressure Position Supine 11/29/24 10:06 Pulse Oximetry 96 11/30/24 08:02 Oxygen Delivery Method Room Air 11/30/24 08:02 Oxygen Flow Rate 0 11/30/24 08:02 Pain Level 0 11/29/24 15:43 Comment RN in room 11/29/24 15:43 Intake & Output 11/29/24 11/29/24 11/30/24 11:59 23:59 11:59 Intake Total 500 / 2200 1700 / 2200 250 / 250 Output Total 600 / 600 250 / 250 Balance 500 / 1600 1100 / 1600 0 / 0 Weight 74 kg 73.5 kg 73.2 kg Intake: IV 500 / 1000 500 / 1000 Oral 1200 / 1200 240 / 240 Output: Urine 600 / 600 250 / 250 Other: Urine Color Yellow Yellow Urine Appearance Clear Clear Urine Odor Normal None Comment pt voids to toilet. pt voids in toilet. Data Completed and Pending Labs on day of discharge: Labs from last 24 hours 11/30/24 11/29/24 11/29/24 05:25 15:46 12:44 D-Dimer Sodium 142 Potassium 3.6 Chloride 108 H Carbon Dioxide 24.9 Anion Gap 9.1 BUN 12 Creatinine 0.7 Est GFR (CKD-EPI 2020) 87.37 Glucose 101 Hemoglobin A1c 6.0 H Calcium 8.2 L Troponin I 99 H* Cancelled 81 H* Triglycerides 95 Total Cholesterol 151 LDL Cholesterol, Calc 80 HDL Cholesterol 52 11/29/24 11/29/24 12:20 10:45 D-Dimer 772 H Sodium Potassium Chloride Carbon Dioxide Anion Gap BUN Creatinine Est GFR (CKD-EPI 2020) Glucose Hemoglobin A1c Calcium Troponin I 70 H* Triglycerides Total Cholesterol LDL Cholesterol, Calc HDL Cholesterol PFSH All Active Problems Anxiety disorder (Acute) DVT prophylaxis (Acute) Chemotherapy-induced cardiomyopathy (Acute) Intermittent atrial fibrillation (Acute) Hypoxemia (Acute) Breath shortness (Acute) Pleural effusion (Acute) Non-ST elevation [place] (NSTEMI) (Acute) Elevated troponin (Acute) Port-A-Cath in place (Chronic) infusaport Discharge planning issues (Acute) Cervical lymphadenopathy (Acute) Neoplasm of unspecified behavior of bone, soft tissue, and skin (Acute) History of basal cell cancer (Acute) Neck mass (Acute) Headache above the eye region (Acute) Pilar cyst (Acute) Hypertension (Chronic) Medical History Diffuse large B cell lymphoma Acute pulmonary embolism Sensory hearing loss, bilateral (01/22/14) Basal cell carcinoma of skin of other parts of face (07/14/17) Surgical History S/P lymph node biopsy Family History Father Heart disease Cancer lung Mother Diabetes Cancer breast Brother Hypertension Cancer lymphoma Sister Hypertension Cancer breast Niece Cancer ? type Social History Smoking/Tobacco Use Status: Former Tobacco Use Smoking risk assessment performed?: Yes Alcohol Intake: never Drug use: Never Substance use type: does not use Housing: house Do you feel safe at home: Yes Do you feel safe in your relationship?: Yes Time Spent with Patient Time Spent with Patient: >85 minutes Time was spent: preparing to see the patient(eg.review tests), obtaining and/or reviewing separately otained hiistory, ordering medications,tests, procedures, referring, communicating with other health critical care physician assistant, indepentently interpreting results, counseling the patient, care coordination and other
[2024-11-30 11:32] VITALS: BP 116/77; PULSE 82; RESP 17; TEMP 36.5; O2SAT 98
[2024-11-30 15:22] LABS: Troponin I 104 ng/L (<or=51)
[2024-11-30 15:31] VITALS: BP 108/68; PULSE 88; RESP 16; TEMP 36.1; O2SAT 97
== END 2024-11-30 16:47 | disposition home health service (06) ==
LOC: ER 11:41 → MS 11-30 07:35
PROVIDERS: Student in an Organized Health Care Education/Training Program; Admitting Provider Family Medicine; Emergency Provider Registered Nurse Emergency; PCP Family Medicine; Responsible Provider Nurse Practitioner Acute Care; Visit Provider Family Medicine
DX: I48.0 Paroxysmal atrial fibrillation (principal); R06.02 Shortness of breath; R79.1 Abnormal coagulation profile; I42.7 Cardiomyopathy due to drug and external agent; I95.9 Hypotension, unspecified; C83.30 Diffuse large B-cell lymphoma, unspecified site; F41.9 Anxiety disorder, unspecified; T45.1X5A Adverse effect of antineoplastic and immunosuppressive drugs, initial encounter; Z86.711 Personal history of pulmonary embolism; E78.5 Hyperlipidemia, unspecified; R74.8 Abnormal levels of other serum enzymes; Z79.899 Other long term (current) drug therapy; I11.0 Hypertensive heart disease with heart failure; I50.20 Unspecified systolic (congestive) heart failure; R73.03 Prediabetes
CPT/HCPCS: 00123; 36415; 80048; 80053; 80061; 93005; 96360; 96361; 99285; 71046; 83036; 83735; 84443; 84484; 85025; 85379; 85610; 85730; 93010; 93306; 99223; 99239; G0378

== ENCOUNTER 2024-12-08 13:12 | Outpatient (CLI) | payer MEDICARE, SELFPAY | END 2024-12-08 13:13 | disposition home or self-care (01) | PROVIDERS: PCP Family Medicine; Visit Provider Internal Medicine Cardiovascular Disease | DX: I48.0 Paroxysmal atrial fibrillation (principal) | CPT/HCPCS: 93246 ==

== ENCOUNTER 2024-12-14 07:00 | Observation (INO) | payer MEDICARE, SELFPAY ==
[2024-12-14] VITALS (102 sets, daily range): BP systolic 70–151; BP diastolic 37–134; PULSE 56–137; RESP 11–30; TEMP 35.8–37; O2SAT 91–98
--- NOTE | 2024-12-14 06:45 | RT.EKG_ITS ---
APPROVED REPORT Exam: Resting ECG Reason for Exam: RAPID AFIB Patient Location: E HR:73 bpm ECG Measurements Heart Rate 73 AXIS TX 192 P 60 QRSd 92 QRS -22 QT 397 T 27 QTc 436 Conclusion Sinus rhythm...normal P axis, V-rate 60- 99 Low voltage, precordial leads...precordial leads <1.0mV Consider anterior infarct...Q >30mS in V2-V5
[2024-12-14 07:42] LABS: Abs Immature Grans 0.01 10^3/uL (0.0-0.06); HCT 37.9 % (36.0-46.0); HGB 12.4 g/dL (11.2-15.7); Immature Grans % 0.2 %; MCH 29.8 pg (27.0-33.0); MCHC 32.7 % (32.0-36.0); MCV 91 fL (80-95); MPV 10.1 fL (8.0-11.0); Platelet Count 264 10^3/uL (130-400); RBC 4.16 10^6/uL (3.93-5.22); RDW 13.5 % (11.7-14.6); RDW-SD 45.2 fL; WBC 4.92 10^3/uL (4.4-10.8)
[2024-12-14 08:14] LABS: ALT 20 U/L (14-59); AST 24 U/L (15-37); Albumin 3.4 g/dL (3.4-5.0); Alkaline Phosphatase 65 U/L (46-116); Anion Gap 8.9 mmol/L (3-11); BUN 10 mg/dL (7-18); Bilirubin, Total 0.5 mg/dL (0.2-1.0); CO2 26.1 mmol/L (21.0-32.0); Calcium 8.4 mg/dL (8.5-10.1); Chloride 106 mmol/L (98-107); Glucose 132 mg/dL (74-106); Potassium 4.2 mmol/L (3.5-5.1); Sodium 141 mmol/L (136-145); TSH (W/Ref FT4) 2.87 uIU/mL (0.36-3.74); Total Protein 6.9 g/dL (6.4-8.2)
[2024-12-14 08:15] LABS: Troponin I 93 ng/L (<or=51)
--- NOTE | 2024-12-14 08:26 | W.ED.GENAD ---
Discharge Plan Disposition Patient Disposition: Home Condition: Stable Discharge Details Clinical Impression: Atrial fibrillation with rapid ventricular response, Hypotension Primary Care Provider: Janeth Tillman ED Provider: Alexandre Chavez Home Meds and New Rx's Prescriptions: No Action lovastatin 20 MG tablet 40 mg PO DAILY zolpidem 10 MG tablet 5 mg PO HS PRN PRN rizatriptan 5 mg Tablet 5 mg PO ONCE MDD may repeat once in two hours PRN (Reason: Migraine Headache) venlafaxine 50 MG tablet 150 mg PO DAILY allopurinol 300 mg tablet 300 mg PO DAILY Patient Comments: TAKE ONE TABLET BY MOUTH DAILY alendronate 70 mg tablet 70 mg PO .once weekly Patient Comments: TAKE ONE TABLET BY MOUTH ONCE WEEKLY potassium chloride 20 mEq tablet extended release 20 meq PO DAILY Patient Comments: TAKE ONE TABLET BY MOUTH EVERY DAY carvedilol 6.25 mg tablet 6.25 mg PO BID Patient Comments: TAKE ONE TABLET BY MOUTH TWICE A DAY escitalopram oxalate 10 mg tablet 10 mg PO DAILY Patient Comments: TAKE ONE TABLET BY MOUTH EVERY DAY WITH VENLAFAXINE cyanocobalamin (vitamin B-12) 1,000 mcg capsule 1,000 mcg PO DAILY PreserVision AREDS 2 Plus MV 200 mcg-15 mcg- 5 mg-1 mg capsule 1 cap PO DAILY cholecalciferol (vitamin D3) [D3-2000] 50 mcg (2,000 unit) capsule 50 mcg PO DAILY Eliquis 5 mg Tablet 5 mg PO BID Qty: 60 0RF furosemide 40 mg tablet 20 mg PO DAILY Qty: 0 0RF Patient Comments: TAKE ONE TABLET BY MOUTH EVERY DAY HPI General Mode of arrival: ambulatory. Date/Time Provider Initiated Documentation: 12/14/24 07:06. Limitations to Documentation: no limitations. Information obtained by: patient. 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 She is accompanied by her daughter. The patient reports experiencing dizziness, which began this morning. Her daughter notes that she had a similar episode a few weeks prior, characterized by palpitations and shortness of breath. This morning, she was unable to stand due to difficulty breathing. These episodes typically occur in the reporting coordinator hours. She also experienced mild dizziness yesterday morning but otherwise had a normal day. She does not report any pain or leg swelling. She has been using a heart monitor to track her symptoms. Her next appointment with her [employer] inspector, Dr. Covington, is scheduled for 12/28/2024. Her primary care physician is Dr. Sheffield. During her last visit to the ER, she converted back to normal rhythm without medication and was only given fluids. Her blood pressure is usually normal, although it is not regularly monitored. The only change in her medication regimen was the addition of Eliquis. She took her medication today. Related Data Home Medications Medication Instructions Recorded Confirmed lovastatin 20 mg tablet 40 mg PO DAILY 08/02/12 12/14/24 zolpidem 10 mg tablet 5 mg PO HS PRN PRN 01/26/14 12/14/24 venlafaxine 50 mg tablet 150 mg PO DAILY 08/12/17 12/14/24 allopurinol 300 mg tablet 300 mg PO DAILY 11/30/19 12/14/24 rizatriptan 5 mg tablet 5 mg PO ONCE PRN Migraine Headache 04/16/20 12/14/24 alendronate 70 mg tablet 70 mg PO .once weekly 11/29/24 12/14/24 carvedilol 6.25 mg tablet 6.25 mg PO BID 11/29/24 12/14/24 cholecalciferol (vitamin D3) 50 50 mcg PO DAILY 11/29/24 12/14/24 mcg (2,000 unit) capsule (D3-1999) cyanocobalamin (vitamin B-12) 1,000 mcg PO DAILY 11/29/24 12/14/24 1,000 mcg capsule escitalopram oxalate 10 mg tablet 10 mg PO DAILY 11/29/24 12/14/24 mv-mn-folic 200 mcg-vit K 15 1 cap PO DAILY 11/29/24 12/14/24 mcg-lutein 5 mg-zeaxanthin 1 mg capsule (PreserVision AREDS 2 Plus Multivit) potassium chloride 20 mEq 20 meq PO DAILY 11/29/24 12/14/24 tablet,extended release apixaban 5 mg tablet (Eliquis) 5 mg PO BID #60 tabs 11/30/24 12/14/24 furosemide 40 mg tablet 20 mg (1/2 x 40 mg) PO DAILY #0 11/30/24 12/14/24 tabs Previous Rx's Medication Instructions Recorded apixaban 5 mg tablet (Eliquis) 5 mg PO BID #60 tabs 11/30/24 furosemide 40 mg tablet 20 mg (1/2 x 40 mg) PO DAILY #0 11/30/24 tabs Allergies Allergy/AdvReac Type Severity Reaction Status Date / Time amlodipine AdvReac Severe Other (See Unverified 12/14/24 07:10 Comment) lisinopril AdvReac Severe cough Unverified 12/14/24 07:10 suvorexant (From [facility]) AdvReac Severe Unknown Unverified 12/14/24 07:10 General Stated Complaint: Palpitatns MARY: 2 Review of Systems All systems reviewed & are unremarkable except as noted in HPI and below Constitutional Constitutional: Denies fever(s) Cardiovascular Cardiovascular: Denies chest pain Exam Const General: cooperative and no acute distress HENMT Mouth: mucous membranes dry Eyes Conjunctivae: normal conjunctivae Sclera: normal sclerae Neck Neck: trachea midline and supple Resp Auscultation: clear to auscultation bilaterally, no rales, no rhonchi and no wheezes Cardio Rate: regular rate and not tachycardic Rhythm: regular rhythm GI Palpation: soft, not firm, no guarding, no masses, not rigid and nontender Skin General skin exam: no rashes or lesions noted Neuro General: patient alert, patient awake and tone normal Speech: speech normal Motor: muscle tone normal throughout Sensory Exam: no sensory deficits noted Extrem General: no edema Psych Appearance: grossly normal Speech and Movement: speech and movement normal Course Vital Signs Vital signs: Vital Signs Temperature 36.6 C 12/14/24 07:02 Pulse 84 12/14/24 07:02 Respiratory Rate 22 12/14/24 07:02 Blood Pressure 83/55 L 12/14/24 07:02 Pulse Oximetry 95 12/14/24 07:02 Temperature 36.6 C 12/14/24 07:02 Temperature Source Oral 12/14/24 07:02 Pulse 68 12/14/24 07:47 Pulse 81 12/14/24 07:50 Respiratory Rate 18 12/14/24 07:50 Blood Pressure 72/40 L 12/14/24 07:47 Blood Pressure Mean 50 12/14/24 07:47 Blood Pressure Position Supine 12/14/24 07:02 Pulse Oximetry 96 12/14/24 07:07 Oxygen Delivery Method Room Air 12/14/24 07:02 Oxygen Flow Rate 0 12/14/24 07:02 Pain Level 0 12/14/24 07:02 Lab/Test Results Lab/Test Results: Laboratory Tests Range/Units 12/14/24 07:36 WBC (4.4-10.8) 10^3/uL 4.92 RBC (3.93-5.22) 10^6/uL 4.16 Hgb (11.2-15.7) g/dL 12.4 Hct (36.0-46.0) % 37.9 MCV (80-95) fL 91 MCH (27.0-33.0) pg 29.8 MCHC (32.0-36.0) % 32.7 RDW (11.7-14.6) % 13.5 Plt Count (130-400) 10^3/uL 264 MPV (8.0-11.0) fL 10.1 Immature Gran % % 0.2 Neutrophils % % 62.2 Lymphocytes % % 23.0 Monocytes % % 11.2 Eosinophils % % 2.6 Basophils % % 0.8 Nucleated RBC % (0.0-0.3) % 0.0 Absolute Neutrophils (1.2-6.7) 10^3/uL 3.06 Absolute Lymphocytes (1.2-3.4) 10^3/uL 1.13 L Absolute Monocytes (0.1-0.8) 10^3/uL 0.55 Absolute Eosinophils (0.0-0.7) 10^3/uL 0.13 Absolute Basophils (0.0-0.2) 10^3/uL 0.04 Sodium (136-145) mmol/L 141 Potassium (3.5-5.1) mmol/L 4.2 Chloride (98-107) mmol/L 106 Carbon Dioxide (21.0-32.0) mmol/L 26.1 Anion Gap (3-11) mmol/L 8.9 BUN (7-18) mg/dL 10 Creatinine (0.55-1.02) mg/dL 0.8 Est GFR (CKD-EPI 2020) (mL/min/1.73m2) 74.44 Glucose (74-106) mg/dL 132 H Calcium (8.5-10.1) mg/dL 8.4 L Total Bilirubin (0.2-1.0) mg/dL 0.5 AST (15-37) U/L 24 ALT (14-59) U/L 20 Alkaline Phosphatase (46-116) U/L 65 Troponin I (<or=51) ng/L 93 H* Total Protein (6.4-8.2) g/dL 6.9 Albumin (3.4-5.0) g/dL 3.4 TSH (0.36-3.74) uIU/mL 2.87 Medical Decision Making 825 --79-year-old female with multiple medical problems including history of atrial fibrillation, on metoprolol, NSTEMI, chemotherapy-induced cardiomyopathy and CHF, diffuse large B-cell lymphoma, hypertension, here with palpitations and dizziness today. Patient was recently hospitalized 11/29/2024 for A-fib, elevated troponin, and hypotension. Patient was discharged after blood pressure stabilization with plan for outpatient follow-up with cardiology. Unfortunately symptoms today severe warranting emergency department evaluation. Patient hypotensive on arrival after receiving diltiazem by EMS for A-fib with RVR in the field. Patient has converted to sinus rhythm. She appears dehydrated. IV fluid bolus resuscitation initiated 500 mL administered. On reassessment, patient remains hypotensive although improved slightly from arrival. EKG was reviewed and interpreted by me: Please see report, sinus rhythm 73 bpm, low voltage precordial leads, no STEMI. Initial troponin is elevated. Troponin is improved from recent hospitalization. Patient has no chest pain. Plan to trend. Patient will require hospitalization for hypotension in setting of CHF, and monitoring and treatment adjustment for A-fib. -- I spoke with Dr. Burger, discussed ED presentation and course, he will plan to admit the patient. Delta troponin pending at time of admission. Lab Data Lab results reviewed: Yes I reviewed the patient's lab results. Labs: Laboratory Tests Range/Units 12/14/24 07:36 WBC (4.4-10.8) 10^3/uL 4.92 RBC (3.93-5.22) 10^6/uL 4.16 Hgb (11.2-15.7) g/dL 12.4 Hct (36.0-46.0) % 37.9 MCV (80-95) fL 91 MCH (27.0-33.0) pg 29.8 MCHC (32.0-36.0) % 32.7 RDW (11.7-14.6) % 13.5 Plt Count (130-400) 10^3/uL 264 MPV (8.0-11.0) fL 10.1 Immature Gran % % 0.2 Neutrophils % % 62.2 Lymphocytes % % 23.0 Monocytes % % 11.2 Eosinophils % % 2.6 Basophils % % 0.8 Nucleated RBC % (0.0-0.3) % 0.0 Absolute Neutrophils (1.2-6.7) 10^3/uL 3.06 Absolute Lymphocytes (1.2-3.4) 10^3/uL 1.13 L Absolute Monocytes (0.1-0.8) 10^3/uL 0.55 Absolute Eosinophils (0.0-0.7) 10^3/uL 0.13 Absolute Basophils (0.0-0.2) 10^3/uL 0.04 Sodium (136-145) mmol/L 141 Potassium (3.5-5.1) mmol/L 4.2 Chloride (98-107) mmol/L 106 Carbon Dioxide (21.0-32.0) mmol/L 26.1 Anion Gap (3-11) mmol/L 8.9 BUN (7-18) mg/dL 10 Creatinine (0.55-1.02) mg/dL 0.8 Est GFR (CKD-EPI 2020) (mL/min/1.73m2) 74.44 Glucose (74-106) mg/dL 132 H Calcium (8.5-10.1) mg/dL 8.4 L Total Bilirubin (0.2-1.0) mg/dL 0.5 AST (15-37) U/L 24 ALT (14-59) U/L 20 Alkaline Phosphatase (46-116) U/L 65 Troponin I (<or=51) ng/L 93 H* Total Protein (6.4-8.2) g/dL 6.9 Albumin (3.4-5.0) g/dL 3.4 TSH (0.36-3.74) uIU/mL 2.87 PFSH All Active Problems (Updated 12/14/24 @ 08:50 by Alexandre Chavez MD) Hypotension (Acute) Atrial fibrillation with rapid ventricular response (Acute) Anxiety disorder (Acute) Intermittent atrial fibrillation (Acute) Hypoxemia (Acute) Breath shortness (Acute) Pleural effusion (Acute) Non-ST elevation HI (NSTEMI) (Acute) Elevated troponin (Acute) Port-A-Cath in place (Chronic) infusaport Hypertension (Chronic) Cervical lymphadenopathy (Acute) Neoplasm of unspecified behavior of bone, soft tissue, and skin (Acute) History of basal cell cancer (Acute) Neck mass (Acute) Headache above the eye region (Acute) Pilar cyst (Acute) Medical History DVT prophylaxis Chemotherapy-induced cardiomyopathy Sensory hearing loss, bilateral (01/22/14) Basal cell carcinoma of skin of other parts of face (07/14/17) Diffuse large B cell lymphoma Acute pulmonary embolism Surgical History S/P lymph node biopsy Family History Father Heart disease Cancer lung Mother Diabetes Cancer breast Brother Hypertension Cancer lymphoma Sister Hypertension Cancer breast Niece Cancer ? type Social History Smoking/Tobacco Use Status: Former Tobacco Use Smoking risk assessment performed?: Yes Alcohol Intake: never Drug use: Never Substance use type: does not use Housing: house Do you feel safe at home: Yes Do you feel safe in your relationship?: Yes
[2024-12-14 09:04] LABS: Troponin I 85 ng/L (<or=51)
--- NOTE | 2024-12-14 11:20 | W.PCEDHO ---
Registration Status: REG ER Primary Language: Preferred Language: Croatian ED Information & Data Chief Complaint Palpitatns 12/14/24 08:33 Triage Note BIBA after waking up this 12/14/24 07:02 morning feeling weak and dizzy, found by EMS to be in rapid Afib- recent hx of rapid afib, wearing Holter monitor currently- given 20 mg dilt by EMS, back in a sinus rhythm and reports feeling better Medical / Surgical History (Last Reviewed 12/14/24 @ 08:49 by Alexandre Chavez MD) DVT prophylaxis Chemotherapy-induced cardiomyopathy Sensory hearing loss, bilateral (01/22/14) Basal cell carcinoma of skin of other parts of face (07/14/17) Diffuse large B cell lymphoma Acute pulmonary embolism (Last Reviewed 12/14/24 @ 08:49 by Alexandre Chavez MD) S/P lymph node biopsy Most Recent Vital Signs Temperature 36.6 C 12/14/24 07:02 Temperature Source Oral 12/14/24 07:02 Pulse 72 12/14/24 10:10 Pulse 72 12/14/24 10:10 Respiratory Rate 15 12/14/24 10:10 Blood Pressure 82/50 L 12/14/24 10:01 Blood Pressure Mean 59 12/14/24 10:01 Blood Pressure Position Supine 12/14/24 07:02 Pulse Oximetry 96 12/14/24 10:10 Oxygen Delivery Method Room Air 12/14/24 07:02 Oxygen Flow Rate 0 12/14/24 07:02 Pain Level 0 12/14/24 07:02 Allergies amlodipine Adverse Reaction (Severe, Unverified 12/14/24 07:10) Other (See Comment) lisinopril Adverse Reaction (Severe, Unverified 12/14/24 07:10) cough suvorexant (From [facility]) Adverse Reaction (Severe, Unverified 12/14/24 07:10) Unknown Precautions Isolation Standard precaution 12/14/24 07:08 IV IV Catheter Type [Left Hand] Saline Lock IV Catheter Type [Right Peripheral IV Antecubital] IV Catheter Gauge [Left Hand] 20 IV Catheter Gauge [Right 18 Antecubital] Diet Orders Category Date Time Status Heart Healthy Eating [DIET] Nutrition 12/14/24 Lunch Active Diagnostics 12/14/24 12/14/24 Range/Units 08:33 07:36 WBC 4.92 (4.4-10.8) 10^3/uL RBC 4.16 (3.93-5.22) 10^6/uL Hgb 12.4 (11.2-15.7) g/dL Hct 37.9 (36.0-46.0) % MCV 91 (80-95) fL MCH 29.8 (27.0-33.0) pg MCHC 32.7 (32.0-36.0) % RDW 13.5 (11.7-14.6) % Plt Count 264 (130-400) 10^3/uL MPV 10.1 (8.0-11.0) fL Immature Gran % 0.2 % Neutrophils % 62.2 % Lymphocytes % 23.0 % Monocytes % 11.2 % Eosinophils % 2.6 % Basophils % 0.8 % Nucleated RBC % 0.0 (0.0-0.3) % Absolute Neutrophils 3.06 (1.2-6.7) 10^3/uL Absolute Lymphocytes 1.13 L (1.2-3.4) 10^3/uL Absolute Monocytes 0.55 (0.1-0.8) 10^3/uL Absolute Eosinophils 0.13 (0.0-0.7) 10^3/uL Absolute Basophils 0.04 (0.0-0.2) 10^3/uL Sodium 141 (136-145) mmol/L Potassium 4.2 (3.5-5.1) mmol/L Chloride 106 (98-107) mmol/L Carbon Dioxide 26.1 (21.0-32.0) mmol/L Anion Gap 8.9 (3-11) mmol/L BUN 10 (7-18) mg/dL Creatinine 0.8 (0.55-1.02) mg/dL Est GFR (CKD-EPI 2020) 74.44 (mL/min/1.73m2) Glucose 132 H (74-106) mg/dL Calcium 8.4 L (8.5-10.1) mg/dL Total Bilirubin 0.5 (0.2-1.0) mg/dL AST 24 (15-37) U/L ALT 20 (14-59) U/L Alkaline Phosphatase 65 (46-116) U/L Troponin I 85 H* 93 H* (<or=51) ng/L Total Protein 6.9 (6.4-8.2) g/dL Albumin 3.4 (3.4-5.0) g/dL TSH 2.87 (0.36-3.74) uIU/mL Intake and Output - 24 Hour Total 12/14/24 06:56 thru 12/14/24 07:47 Intake Total 20 Balance 20 Weight 78.5 kg Intake: IV 20 Falls Risk Assessment History of Falls No History 12/14/24 07:17 Contributing Factors No Factors 12/14/24 07:17 Ambulatory Aids Independent 12/14/24 07:17 Tubes/Lines W/no contributing factors 12/14/24 07:17 Gait Evaluation No gait disturbance 12/14/24 07:17 Cognition No cognitive impairment 12/14/24 07:17 Fall Total Score 10 12/14/24 07:17 Level of Risk Standard/Low Risk 12/14/24 07:17 Problems (Last Reviewed 12/14/24 @ 08:49 by Alexandre Chavez MD) Hypotension (Acute) Atrial fibrillation with rapid ventricular response (Acute) v v v v v v v v v Sending and/or Receiving Nurses: Please use comment section below to note any information pertinent to the patient hand-off not included above. Information / Comments: Report received from:Kayla
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
--- NOTE | 2024-12-14 13:10 | W.PC.ACHO ---
Registration Status: REG ER Primary Language: Preferred Language: Czech ED Information & Data Chief Complaint Palpitatns 12/14/24 08:33 Triage Note BIBA after waking up this 12/14/24 07:02 morning feeling weak and dizzy, found by EMS to be in rapid Afib- recent hx of rapid afib, wearing Holter monitor currently- given 20 mg dilt by EMS, back in a sinus rhythm and reports feeling better Medical / Surgical History (Last Reviewed 12/14/24 @ 08:49 by Alexandre Chavez MD) DVT prophylaxis Chemotherapy-induced cardiomyopathy Sensory hearing loss, bilateral (01/22/14) Basal cell carcinoma of skin of other parts of face (07/14/17) Diffuse large B cell lymphoma Acute pulmonary embolism (Last Reviewed 12/14/24 @ 08:49 by Alexandre Chavez MD) S/P lymph node biopsy Most Recent Vital Signs Temperature 36.6 C 12/14/24 07:02 Temperature Source Oral 12/14/24 07:02 Pulse 68 12/14/24 11:31 Pulse 71 12/14/24 11:31 Respiratory Rate 16 12/14/24 11:31 Blood Pressure 82/55 L 12/14/24 11:31 Blood Pressure Mean 63 12/14/24 11:31 Blood Pressure Position Supine 12/14/24 07:02 Pulse Oximetry 95 12/14/24 11:31 Oxygen Delivery Method Room Air 12/14/24 07:02 Oxygen Flow Rate 0 12/14/24 07:02 Pain Level 0 12/14/24 07:02 Allergies amlodipine Adverse Reaction (Severe, Unverified 12/14/24 07:10) Other (See Comment) lisinopril Adverse Reaction (Severe, Unverified 12/14/24 07:10) cough suvorexant (From [facility]) Adverse Reaction (Severe, Unverified 12/14/24 07:10) Unknown Precautions Isolation Standard precaution 12/14/24 07:08 IV IV Catheter Type [Left Hand] Saline Lock IV Catheter Type [Right Peripheral IV Antecubital] IV Catheter Gauge [Left Hand] 20 IV Catheter Gauge [Right 18 Antecubital] Diet Orders Category Date Time Status Heart Healthy Eating [DIET] Nutrition 12/14/24 Lunch Active Diagnostics 12/14/24 12/14/24 Range/Units 08:33 07:36 WBC 4.92 (4.4-10.8) 10^3/uL RBC 4.16 (3.93-5.22) 10^6/uL Hgb 12.4 (11.2-15.7) g/dL Hct 37.9 (36.0-46.0) % MCV 91 (80-95) fL MCH 29.8 (27.0-33.0) pg MCHC 32.7 (32.0-36.0) % RDW 13.5 (11.7-14.6) % Plt Count 264 (130-400) 10^3/uL MPV 10.1 (8.0-11.0) fL Immature Gran % 0.2 % Neutrophils % 62.2 % Lymphocytes % 23.0 % Monocytes % 11.2 % Eosinophils % 2.6 % Basophils % 0.8 % Nucleated RBC % 0.0 (0.0-0.3) % Absolute Neutrophils 3.06 (1.2-6.7) 10^3/uL Absolute Lymphocytes 1.13 L (1.2-3.4) 10^3/uL Absolute Monocytes 0.55 (0.1-0.8) 10^3/uL Absolute Eosinophils 0.13 (0.0-0.7) 10^3/uL Absolute Basophils 0.04 (0.0-0.2) 10^3/uL Sodium 141 (136-145) mmol/L Potassium 4.2 (3.5-5.1) mmol/L Chloride 106 (98-107) mmol/L Carbon Dioxide 26.1 (21.0-32.0) mmol/L Anion Gap 8.9 (3-11) mmol/L BUN 10 (7-18) mg/dL Creatinine 0.8 (0.55-1.02) mg/dL Est GFR (CKD-EPI 2020) 74.44 (mL/min/1.73m2) Glucose 132 H (74-106) mg/dL Calcium 8.4 L (8.5-10.1) mg/dL Total Bilirubin 0.5 (0.2-1.0) mg/dL AST 24 (15-37) U/L ALT 20 (14-59) U/L Alkaline Phosphatase 65 (46-116) U/L Troponin I 85 H* 93 H* (<or=51) ng/L Total Protein 6.9 (6.4-8.2) g/dL Albumin 3.4 (3.4-5.0) g/dL TSH 2.87 (0.36-3.74) uIU/mL Intake and Output - 24 Hour Total 12/14/24 06:56 thru 12/14/24 07:47 Intake Total 20 Balance 20 Weight 78.5 kg Intake: IV 20 Falls Risk Assessment History of Falls No History 12/14/24 07:17 Contributing Factors No Factors 12/14/24 07:17 Ambulatory Aids Independent 12/14/24 07:17 Tubes/Lines W/no contributing factors 12/14/24 07:17 Gait Evaluation No gait disturbance 12/14/24 07:17 Cognition No cognitive impairment 12/14/24 07:17 Fall Total Score 10 12/14/24 07:17 Level of Risk Standard/Low Risk 12/14/24 07:17 Problems (Last Reviewed 12/14/24 @ 08:49 by Alexandre Chavez MD) Hypotension (Acute) Atrial fibrillation with rapid ventricular response (Acute) v v v v v v v v v Sending and/or Receiving Nurses: Please use comment section below to note any information pertinent to the patient hand-off not included above. Information / Comments: Report received from: Ada Sears RN
--- NOTE | 2024-12-14 13:30 | RT.EKG_ITS ---
APPROVED REPORT Exam: Resting ECG Reason for Exam: afib Patient Location: I HR:132 bpm ECG Measurements Heart Rate 132 AXIS [place] [id number] P [id number] QRSd 94 QRS -25 QT 344 T 25 QTc 510 Conclusion Atrial fibrillation...? atrial activity Borderline left axis deviation...QRS axis (-15,-29) Low voltage, precordial leads...precordial leads <1.0mV
[2024-12-14] MEDS: Normal Saline Flush 10 ML SYR ×2 (14:31→20:33)
[2024-12-14] MEDS: dilTIAZem 25 MG/5 ML VIAL 10 MG IVP (14:32)
--- NOTE | 2024-12-14 15:09 | PHACLINREV_ITS ---
Pharmacy Admission Review Admission Clinical Review Admission Pharmacy Review: Hypotension (Acute) Atrial fibrillation with rapid ventricular response (Acute) amlodipine Adverse Reaction (Severe, Unverified 12/14/24 07:10) Other (See Comment) lisinopril Adverse Reaction (Severe, Unverified 12/14/24 07:10) cough suvorexant (From [facility]) Adverse Reaction (Severe, Unverified 12/14/24 07:10) Unknown Resuscitation Status Full Code Height 5 ft 1 in Weight 73.5 kg Pharmacy Admission Review Renal Dosing Renal Dosing: BUN 10 mg/dL (7-18) 12/14/24 07:36 Creatinine 0.8 mg/dL (0.55-1.02) 12/14/24 07:36 Medications needing adjustments: Reviewed (CrCl 41.14 mL/min) List of meds needing interventions: Current medications are okay Anticoagulation Anticoagulation: Hgb 12.4 g/dL (11.2-15.7) 12/14/24 07:36 Hct 37.9 % (36.0-46.0) 12/14/24 07:36 Plt Count 264 10^3/uL (130-400) 12/14/24 07:36 Creatinine 0.8 mg/dL (0.55-1.02) 12/14/24 07:36 DVT Prophylaxis: Reviewed Medications: Apixaban (5mg BID) Relevant Labs Relevant Labs: Sodium 141 mmol/L (136-145) 12/14/24 07:36 Potassium 4.2 mmol/L (3.5-5.1) 12/14/24 07:36 Chloride 106 mmol/L (98-107) 12/14/24 07:36 Electrolytes, C-Reactive P, ESR: Reviewed Cardiac Review Cardiac Review: Troponin I 85 ng/L (<or=51) H* 93 ng/L (<or=51) H* 12/14/24 08:33 12/14/24 07:36 Blood Pressure 97/67 1432 Blood Pressure 107/75 1341 Blood Pressure 96/60 1315 Blood Pressure 88/56 1302 Blood Pressure 95/66 1246 Blood Pressure 95/51 1231 Blood Pressure 84/53 1216 Blood Pressure 89/51 1200 Blood Pressure 93/55 1145 Blood Pressure 82/55 1131 Blood Pressure 88/59 1116 Blood Pressure 92/44 1104 Blood Pressure 91/59 1030 Blood Pressure 89/47 1016 BP, HR, EF%: Reviewed (HR 121) List meds needing interventions: Has orders for furosemide 20mg daily QTc Review QTc: Reviewed (436 from 12/14/24) IV to PO Switch IV Medications: Reviewed Home Meds Home Med List reviewed: Intervened Relevent Home Meds Not ordered & why?: alendronate (weekly), carvedilol (hyp otension?) and rizatriptan (PRN) Patient had venlafaxine 150mg on home med list. Based on external fill history patient takes venlafaxine 150mg XL daily. Updated home med list and order. Changed multivitamin to be patients own. Will need to be brought in if patient wants to take it while here. Current Meds Current Medication Order Review: Intervened Comments: Changed lovastatin from daily to qPM per pharmacy protocol Changed zolpidem order from 10mg tablets to 5mg tablets (dose 5mg)
--- NOTE | 2024-12-14 16:15 | RT.EKG_ITS ---
APPROVED REPORT Exam: Resting ECG Reason for Exam: Convert a-fib to sinus rhythm Patient Location: I HR:76 bpm ECG Measurements Heart Rate 76 AXIS [place] 182 P 40 QRSd 101 QRS -31 QT 401 T 8 QTc 451 Conclusion Sinus rhythm...normal P axis, V-rate 50- 99 Ventricular premature complex...V complex w/ short R-R interval Low voltage, precordial leads...precordial leads <1.0mV
[2024-12-14] MEDS: Carvedilol 6.25 MG TAB PO ×2 (16:42→20:29)
[2024-12-14] MEDS: Lovastatin 20 MG TAB 40 MG PO (20:29)
[2024-12-14] MEDS: Apixaban 5 MG TAB PO (20:29)
[2024-12-14] MEDS: Zolpidem 5 MG TAB PO (20:30)
[2024-12-15] VITALS (44 sets, daily range): BP systolic 105–123; BP diastolic 62–78; PULSE 64–85; RESP 11–37; TEMP 36; O2SAT 89–98
[2024-12-15 07:12] LABS: Anion Gap 11.0 mmol/L (3-11); BUN 9 mg/dL (7-18); CO2 25.0 mmol/L (21.0-32.0); Calcium 8.4 mg/dL (8.5-10.1); Chloride 106 mmol/L (98-107); Glucose 115 mg/dL (74-106); Potassium 3.8 mmol/L (3.5-5.1); Sodium 142 mmol/L (136-145)
[2024-12-15 07:23] LABS: Troponin I 86 ng/L (<or=51)
--- NOTE | 2024-12-15 08:14 | PDOC.CMIN ---
Date of service: 12/15/24 Time of Service: 08:14 Care Management Initial Assmt Initial Assessment Reason for Hospitalization: Afib, hypotension Functional Status/Living Situation Patient Presentation: Tierra was already dressed and ready to go when CM met with her, and is accompanied by her daughter Bryce. Tierra drives and is active and independent at baseline. She resides in a in-law apartment attached to her daughters home in [facility] [facility]. Tierra feels well supported at home, and does not want or need community resources at this time. Town of Residence: [place] Resides with: Alone Significant Other/Family: Local Natural Supports: Daughter Bryce Jaramillo Son Zoraida Armando Employment Status: Retired Instrumental Activities of Daily Living (ADLs): Independent Medications Medication Management: No Issues/Barriers identified Physical Functioning/Mobility Assistive Device: Has grab bars at home Advance Directives Advance Directives: Do you have an Advance Directive: Y 05/05/23, 19:09 AD On File at [facility]: Y 05/05/23, 19:09 Date Asked 05/05/23 11/30/24, 07:35 AD Date Reviewed 12/14/24 12/14/24, 07:13 COLST On File at [facility] COLST Date Scanned Code Status Resuscitation Status Full Code Portal Pt does not currently have a portal and education provided: Yes Insurance Coverage/Financial Issues Insurance: BC/BS [facility] - [id number] Care Team Visit Care Team Role Provider Type Janeth Tillman MD Primary Care Provider [facility] STAFF PHYSICIAN Alexandre Chavez MD Emergency Provider [facility] STAFF PHYSICIAN Chente Burger Admit Provider [facility] STAFF PHYSICIAN Attending Provider Discharge Potential Discharge Needs: PCP F/U Appt Anticipated Barriers to Discharge: None Identified Patient/Family Education Needs: Review discharge instructions, discuss Ask Me Three Transportation: Private vehicle Plan: Anticipate Tierra will discharge home via private vehicle with family once medically cleared. Patient will follow up with her PCP/community providers and continue per her discharge plan of care. CM will follow. Social Determinants of Health Screening Social Determinants of health last assessed in clinic: 12/15/24 Will the Patient Participate in the Screening?: Yes Do you worry about having a steady place to live?: no Problems where you live: no known problems In the past 12 months, have you had to go without electric, gas, oil or water in your home?: no 1. Within the past 12 months, we worried whether our food would run out before we got money to buy more.: Never true 2. Within the past 12 months, the food we bought just didn't last and we didn't have money to get more.: Never true Has lack of transportation kept you from medical appointments or from doing things needed for daily living?: no Has anyone in your life made you feel unsafe or unsupported?: no How hard is it for you to pay for the very basics like food, housing, medical care, and heating? Would you say it is:: Somewhat hard Do you want help finding or keeping work or a job?: I do not need or want help If for any reason you need help with day-to-day activities such as bathing, preparing meals, shopping, managing finances, etc., do you get the help you need?: I don’t need any help How often do you feel lonely or isolated from those around you?: Sometimes Do you speak a language other than Spanish at home?: No Does the patient want assistance with any of the above?: Yes Health Related Social Needs Health related social needs: problems related to housing/economic circumstances (Z59.89) and feeling lonely/isolated (Z60.8) Health related social needs details: Patient has 2 children who are very supportive. PFSH All Active Problems (Updated 12/14/24 @ 15:47 by Chente Burger) Hypotension (Acute) Atrial fibrillation with rapid ventricular response (Acute) Anxiety disorder (Acute) Intermittent atrial fibrillation (Acute) Hypoxemia (Acute) Breath shortness (Acute) Pleural effusion (Acute) Non-ST elevation [place] (NSTEMI) (Acute) Elevated troponin (Acute) Port-A-Cath in place (Chronic) infusaport Hypertension (Chronic) Cervical lymphadenopathy (Acute) Neoplasm of unspecified behavior of bone, soft tissue, and skin (Acute) History of basal cell cancer (Acute) Neck mass (Acute) Headache above the eye region (Acute) Pilar cyst (Acute) Medical History (Updated 12/14/24 @ 15:47 by Chente Burger) Chemotherapy-induced cardiomyopathy Sensory hearing loss, bilateral (01/22/14) Basal cell carcinoma of skin of other parts of face (07/14/17) Diffuse large B cell lymphoma Acute pulmonary embolism Surgical History S/P lymph node biopsy Family History Father Heart disease Cancer lung Mother Diabetes Cancer breast Brother Hypertension Cancer lymphoma Sister Hypertension Cancer breast Niece Cancer ? type Social History (Updated 12/14/24 @ 15:45 by Chente Burger) Smoking/Tobacco Use Status: Former Tobacco Use Smoking risk assessment performed?: Yes Alcohol Intake: never Drug use: Never Substance use type: does not use Housing: apartment Do you feel safe at home: Yes Do you feel safe in your relationship?: Yes Additional Social history: Lives in apartment attached to daughter's home on [address] [facility] in [place]
--- NOTE | 2024-12-15 08:31 | W.CARDCONSUL ---
Date of service: 12/15/24 Time of Service: 08:32 Assessment and Plan Assessment and plan (1) Intermittent atrial fibrillation: Status: Acute Assessment and plan: Patient has paroxysmal atrial fibrillation. She is quite symptomatic when the dysrhythmia is present. She is not in atrial fibrillation now and I would favor initiating a rhythm control strategy to try and maintain sinus rhythm. I recommend amiodarone 200 mg twice daily for a month, then reduce to 200 mg daily. She has an appointment with Dr. Posada in a week or 2. They can discuss atrial fibrillation ablation as well as other rhythm control strategies then She should continue Eliquis for stroke prevention (2) Chemotherapy-induced cardiomyopathy: Assessment and plan: EF is mildly reduced. It is not changed compared to previous studies dating back to 2020. She does not have symptoms or findings of heart failure History of Present Illness Narrative: This is an 79-year-old woman who has a history of mild left ventricular dysfunction attributed to prior chemotherapy. That was administered in 2020 when she was diagnosed with diffuse large B-cell lymphoma. Her ejection fraction subsequently has been in the vicinity of 45%. She follows with Dr. Fredis posada in [place]. About 2 weeks ago she presented here to the hospital with atrial fibrillation with a rapid ventricular response. She was quite symptomatic with the dysrhythmia, feeling dizzy and generally awful. She converted back to sinus rhythm and was started on Eliquis for stroke prevention. She had no adjustment of her other medications. She came back to the hospital yesterday again with symptomatic rapid atrial fibrillation. She converted to sinus rhythm after a dose of intravenous diltiazem, then had recurrent atrial fibrillation later in the day, went back to sinus rhythm last evening. Current heart rate is 78, blood pressure is 128/73 She had an echocardiogram done mid November. EF was again 45%. Atria were normal in size. There was mild aortic and tricuspid regurgitation, normal right ventricular systolic pressure. There was no change to 2020 Patient is accompanied by her daughter. They have many questions which include whether or not atrial fibrillation ablation would be appropriate therapy. See discussion Review of Systems Cardiovascular Cardiovascular: Reports as per HPI, Denies chest pain, Reports rapid heart rate, Reports lightheadedness, Reports palpitations and Reports dyspnea Respiratory Respiratory: Reports dyspnea Endocrine Endocrine: Reports palpitations PFSH All Active Problems (Updated 12/14/24 @ 15:47 by Chente Burger) Hypotension (Acute) Atrial fibrillation with rapid ventricular response (Acute) Anxiety disorder (Acute) Intermittent atrial fibrillation (Acute) Hypoxemia (Acute) Breath shortness (Acute) Pleural effusion (Acute) Non-ST elevation [place] (NSTEMI) (Acute) Elevated troponin (Acute) Port-A-Cath in place (Chronic) infusaport Hypertension (Chronic) Cervical lymphadenopathy (Acute) Neoplasm of unspecified behavior of bone, soft tissue, and skin (Acute) History of basal cell cancer (Acute) Neck mass (Acute) Headache above the eye region (Acute) Pilar cyst (Acute) Medical History (Updated 12/14/24 @ 15:47 by Chente Burger) Chemotherapy-induced cardiomyopathy Sensory hearing loss, bilateral (01/22/14) Basal cell carcinoma of skin of other parts of face (07/14/17) Diffuse large B cell lymphoma Acute pulmonary embolism Surgical History S/P lymph node biopsy Family History Father Heart disease Cancer lung Mother Diabetes Cancer breast Brother Hypertension Cancer lymphoma Sister Hypertension Cancer breast Niece Cancer ? type Social History (Updated 12/14/24 @ 15:45 by Chente Burger) Smoking/Tobacco Use Status: Former Tobacco Use Smoking risk assessment performed?: Yes Alcohol Intake: never Drug use: Never Substance use type: does not use Housing: apartment Do you feel safe at home: Yes Do you feel safe in your relationship?: Yes Additional Social history: Lives in apartment attached to daughter's home on [address] in [place] [facility] Exam Const Other: Looks stated age. Mildly frail Results Last Vital Signs Temp 35.8 C L 12/14/24 15:24 Pulse 69 12/15/24 05:50 Resp 17 12/15/24 05:50 BP 118/66 12/15/24 04:00 Pulse Ox 90 L 12/15/24 05:50 Labs 12/14/24 07:36 12/15/24 05:35 Labs: Laboratory Results - last 24 hr 12/14/24 12/15/24 08:33 05:35 Sodium 142 Potassium 3.8 Chloride 106 Carbon Dioxide 25.0 Anion Gap 11.0 BUN 9 Creatinine 0.7 Est GFR (CKD-EPI 2020) 87.37 Glucose 115 H Calcium 8.4 L Troponin I 85 H* 86 H*
[2024-12-15] MEDS: Cyanocobalamin 500 MCG TAB 1000 MCG PO (09:03)
[2024-12-15] MEDS: Furosemide 40 MG TAB 20 MG PO (09:03)
[2024-12-15] MEDS: Venlafaxine 150 MG CAPCR PO (09:03)
[2024-12-15] MEDS: Apixaban 5 MG TAB PO (09:03)
[2024-12-15] MEDS: Cholecalciferol (Vitamin D3) 1,000 UNIT TAB 2000 UNITS PO (09:03)
[2024-12-15] MEDS: Allopurinol 300 MG TAB PO (09:03)
[2024-12-15] MEDS: Potassium Chloride 20 MEQ TABCR PO (09:03)
[2024-12-15] MEDS: Carvedilol 6.25 MG TAB 12.5 MG PO (09:03)
[2024-12-15] MEDS: Normal Saline Flush 10 ML SYR (09:04)
[2024-12-15] MEDS: Escitalopram 10 MG TAB PO (09:04)
--- NOTE | 2024-12-15 11:54 | DSE_ITS ---
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 She was treated with 20mg diltiazem by EMS and had converted by the time she got to the ED. Her blood pressure was low so she was admitted to observation in the ICU. Her troponins were again mildly elevated around 80 but stable. Her blood pressure improved but she did go back into atrial fibrillation for a few hours and was given another 10mg of diltiazem. She converted back into sinus by 12/14 afternoon. Her carvedilol was increased to 6.25mg QID and her blood presssure was stable and pulse was in the 70s. She was seen by Dr. Villanueva who recommended starting amiodarone without a load to help keep her out of atrial fibrillation. She is also on escitalopram at moderate dose, which can prolong QT with amiodarone. Her QTc prior to amiodarone was 451. She should have a repeat EKG in 1-2 weeks to follow the QTc. She has follow up with her anchor tack puller Dr. Posada during this time period. TSH/reflex was sent prior to discharge to monitor with amiodarone. Her carvedilol was also increased to 12.5mg BID as she was tolerating the higher dose and this should help control rate if she does go back into atrial fibrillation. Home Meds and New Rx's Prescriptions: New amiodarone 200 mg tablet 200 mg PO BID Qty: 60 0RF carvedilol 12.5 mg tablet 12.5 mg PO BID Qty: 60 0RF Rx Instructions: must administer with a meal/food, cancel 6.25mg Continued rizatriptan 5 mg Tablet 5 mg PO ONCE MDD may repeat once in two hours PRN (Reason: Migraine Headache) allopurinol 300 mg tablet 300 mg PO DAILY Patient Comments: TAKE ONE TABLET BY MOUTH DAILY alendronate 70 mg tablet 70 mg PO .once weekly Patient Comments: TAKE ONE TABLET BY MOUTH ONCE WEEKLY potassium chloride 20 mEq tablet extended release 20 meq PO DAILY Patient Comments: TAKE ONE TABLET BY MOUTH EVERY DAY escitalopram oxalate 10 mg tablet 10 mg PO DAILY Patient Comments: TAKE ONE TABLET BY MOUTH EVERY DAY WITH VENLAFAXINE cyanocobalamin (vitamin B-12) 1,000 mcg capsule 1,000 mcg PO DAILY PreserVision AREDS 2 Plus MV 200 mcg-15 mcg- 5 mg-1 mg capsule 1 cap PO DAILY cholecalciferol (vitamin D3) [D3-2000] 50 mcg (2,000 unit) capsule 50 mcg PO DAILY Eliquis 5 mg Tablet 5 mg PO BID Qty: 60 0RF furosemide 40 mg tablet 20 mg PO DAILY Qty: 0 0RF Patient Comments: TAKE ONE TABLET BY MOUTH EVERY DAY zolpidem 5 mg tablet 5 mg PO HS Patient Comments: TAKE ONE TABLET BY MOUTH EVERY NIGHT NEEDED - MAX DAILY DOSE OF 5MG venlafaxine 150 mg capsule,extended release 24hr 150 mg PO DAILY Patient Comments: TAKE ONE CAPSULE BY MOUTH EVERY DAY lovastatin 40 mg tablet 40 mg PO DAILY Patient Comments: TAKE ONE TABLET BY MOUTH EVERY DAY Discontinued carvedilol 6.25 mg tablet 6.25 mg PO BID Patient Comments: TAKE ONE TABLET BY MOUTH TWICE A DAY Discharge Instructions Instructions: Atrial Fibrillation (DC) Additional Instructions: We doubled the carvedilol dose to 12.5mg twice a day. This should control the heart rate if you go back into atrial fibrillation We are also starting amiodarone, which should help keep you out of atrial fibrillation. Follow up with Dr. Posada as planned. Activity:: Activity as Tolerated Equipment/Supplies:: No Equipment Needed Diet:: As Tolerated Discharge Orders Discharge Orders: Discharge Order (Routine); Ordered 12/15/24 Ordered By: Chente Burger DS: Summary Time Spent with Patient providing and/or coordinating discharge services: Greater than 30 minutes Status at Discharge Functional status at discharge: independent ambulation Overall status at discharge: patient is back to baseline Mental Status: mental status grossly normal Speech and Movement: speech and movement normal Mood: congruent mood Affect: normal affect Quality:SDOH Health Related Social Needs: Health related social needs house/econ circumstance [place]/isolated Health related social needs details Patient has 2 chil dren who are very supportive. Health related social needs details: Patient has 2 children who are very supportive. Exam Narrative Exam Narrative: GEN: Alert and oriented, NAD. LUNGS: CTAB with normal effort CV: RRR with no murmurs, gallops, or rubs. ABD: active bowel sounds, soft, nontender and nondistended. No masses. EXT: no cyanosis, clubbing, or edema. Legs not tender. Psych Mental Status: mental status grossly normal Speech and Movement: speech and movement normal Mood: congruent mood Affect: normal affect DS: Data Vitals/I&O Vitals and I&O: Vital Signs Temperature 36.0 C L 12/15/24 10:56 Temperature Source Tympanic 12/14/24 15:29 Pulse 74 12/15/24 10:01 Pulse 74 12/15/24 10:01 Respiratory Rate 11 L 12/15/24 10:01 Respiratory Effort Short of Breath 12/14/24 13:44 Respiratory Depth Normal 12/14/24 13:44 Respiratory Pattern Normal 12/14/24 13:44 Blood Pressure 106/78 12/15/24 10:01 Blood Pressure Mean 85 12/15/24 10:01 Blood Pressure Position Supine 12/14/24 13:44 Pulse Oximetry 96 12/15/24 10:01 Oxygen Delivery Method Room Air 12/14/24 15:29 Oxygen Flow Rate 0 12/14/24 15:29 Pain Level 0 12/14/24 13:44 Intake & Output 12/14/24 12/14/24 12/15/24 11:59 23:59 11:59 Intake Total 20 / 140 120 / 140 Output Total 450 / 450 300 / 300 Balance 20 / -310 -330 / -310 -300 / -300 Weight 78.5 kg 73.5 kg Intake: IV 20 / 20 Oral 120 / 120 Output: Urine 450 / 450 300 / 300 Other: Urine Color Yellow Light Dayanna Urine Appearance Clear Clear Urine Odor Normal Stool Size Moderate Stool Characteristics Soft Formed Brown Data Completed and Pending Pending Labs at Discharge: 12/14/24 12/14/24 12/15/24 07:36 08:33 05:35 WBC 4.92 RBC 4.16 Hgb 12.4 Hct 37.9 MCV 91 MCH 29.8 MCHC 32.7 RDW 13.5 Plt Count 264 MPV 10.1 Immature Gran % 0.2 Neutrophils % 62.2 Lymphocytes % 23.0 Monocytes % 11.2 Eosinophils % 2.6 Basophils % 0.8 Nucleated RBC % 0.0 Absolute Neutrophils 3.06 Absolute Lymphocytes 1.13 L Absolute Monocytes 0.55 Absolute Eosinophils 0.13 Absolute Basophils 0.04 Sodium 141 142 Potassium 4.2 3.8 Chloride 106 106 Carbon Dioxide 26.1 25.0 Anion Gap 8.9 11.0 BUN 10 9 Creatinine 0.8 0.7 Est GFR (CKD-EPI 2020) 74.44 87.37 Glucose 132 H 115 H Calcium 8.4 L 8.4 L Total Bilirubin 0.5 AST 24 ALT 20 Alkaline Phosphatase 65 Troponin I 93 H* 85 H* 86 H* Total Protein 6.9 Albumin 3.4 TSH 2.87 12/15/24 11:38 WBC RBC Hgb Hct MCV MCH MCHC RDW Plt Count MPV Immature Gran % Neutrophils % Lymphocytes % Monocytes % Eosinophils % Basophils % Nucleated RBC % Absolute Neutrophils Absolute Lymphocytes Absolute Monocytes Absolute Eosinophils Absolute Basophils Sodium Potassium Chloride Carbon Dioxide Anion Gap BUN Creatinine Est GFR (CKD-EPI 2020) Glucose Calcium Total Bilirubin AST ALT Alkaline Phosphatase Troponin I Total Protein Albumin TSH [facility] All Active Problems (Updated 12/14/24 @ 15:47 by Chente Burger) Hypotension (Acute) Atrial fibrillation with rapid ventricular response (Acute) Anxiety disorder (Acute) Intermittent atrial fibrillation (Acute) Hypoxemia (Acute) Breath shortness (Acute) Pleural effusion (Acute) Non-ST elevation ID (NSTEMI) (Acute) Elevated troponin (Acute) Port-A-Cath in place (Chronic) infusaport Cervical lymphadenopathy (Acute) Neoplasm of unspecified behavior of bone, soft tissue, and skin (Acute) History of basal cell cancer (Acute) Neck mass (Acute) Headache above the eye region (Acute) Pilar cyst (Acute) Hypertension (Chronic) Medical History (Updated 12/14/24 @ 15:47 by Chente Burger) 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 type Social History (Updated 12/14/24 @ 15:45 by Chente Burger) Smoking/Tobacco Use Status: Former Tobacco Use Smoking risk assessment performed?: Yes Alcohol Intake: never Drug use: Never Substance use type: does not use Housing: apartment Do you feel safe at home: Yes Do you feel safe in your relationship?: Yes Additional Social history: Lives in apartment attached to daughter's home on [address] [facility] Time Spent with Patient Time Spent with Patient: <45 minutes Time was spent: preparing to see the patient(eg.review tests), obtaining and/or reviewing separately otained hiistory, ordering medications,tests, procedures, referring, communicating with other health day care center director, indepentently interpreting results, counseling the patient and care coordination
[2024-12-15] MEDS: FLU Vaccine TS 2025-26 MF59C/PF (65UP) 45 MCG/0.5 ML SYR IM (12:02)
[2024-12-15 12:36] LABS: TSH (W/Ref FT4) 1.85 uIU/mL (0.36-3.74)
--- NOTE | 2024-12-15 14:07 | CMDISCH_ITS ---
Date of service: 12/15/24 Time of Service: 14:07 LACE Index Scoring Tool Questions: Length of Stay (in days): 1 Was the patient admitted via the E.D.?: Yes Comorbidities: Previous M.I. E.D. Visits: 2 Answers: Total Score: 7 Risk of Readmission: Low Risk Care Management Discharge Plan Reason for Hospitalization: Hypotension Discharge Plan: Tierra is discharged home via private vehicle with her daughter. She will follow up with her PCP/Community providers and discharge plan of care as directed. No new services were indicated at the time of discharge. Patient/Family Education Needs: Review discharge instructions and plan to follow up after discharge. Discuss ask me three. SDOH Health Related Social Needs: Health related social needs house/econ circumstance [place]/isolated Health related social needs details Patient has 2 chil dren who are very supportive. Health related social needs details: Patient has 2 children who are very supportive.
== END 2024-12-15 12:37 | disposition home or self-care (01) ==
LOC: ER 08:50 → ICU 13:25
PROVIDERS: Admitting Provider Family Medicine; Emergency Provider Student in an Organized Health Care Education/Training Program; PCP Family Medicine; Responsible Provider Family Medicine; Visit Provider Family Medicine
DX: I48.0 Paroxysmal atrial fibrillation (principal); I95.2 Hypotension due to drugs; T46.1X5A Adverse effect of calcium-channel blockers, initial encounter; F32.A Depression, unspecified; I42.7 Cardiomyopathy due to drug and external agent; T45.1X5A Adverse effect of antineoplastic and immunosuppressive drugs, initial encounter; I50.20 Unspecified systolic (congestive) heart failure; R53.1 Weakness; R42 Dizziness and giddiness; F41.9 Anxiety disorder, unspecified; I25.2 Old myocardial infarction; R59.0 Localized enlarged lymph nodes; C85.80 Other specified types of non-Hodgkin lymphoma, unspecified site; Z79.899 Other long term (current) drug therapy; R74.8 Abnormal levels of other serum enzymes; Z59.89 Other problems related to housing and economic circumstances; R45.89 Other symptoms and signs involving emotional state
CPT/HCPCS: 00123; 36415; 80048; 80053; 90653; 93005; 99222; 99285; 84443; 84484; 85025; 93010; 99238; G0378

== ENCOUNTER 2025-01-02 07:28 | Outpatient (CLI) | payer MEDICARE, SELFPAY ==
--- NOTE | 2025-01-02 12:32 | W.CARDEVENT ---
Date of service: 01/02/25 Time of Service: 12:32 Cardiac Event Recorder Referring Provider:: Chente Burger Indications:: PAF Cardiac Event Note: This is a cardiac event monitor. Patient was monitored for 13 days and 8 hours Predominant rhythm was sinus with an average heart rate of 79. Minimum was 54, maximum 121 There were rare ventricular ectopic beat There were occasional atrial premature beats. There was an atrial fibrillation burden of 1%. When in atrial fibrillation, rates were uncontrolled There was no high-grade AV block, no pauses greater than 3 seconds There were no apparent patient symptoms
== END 2025-01-02 07:29 | disposition home or self-care (01) ==
LOC: CARDOPNVT 07:28
PROVIDERS: PCP Family Medicine; Visit Provider Internal Medicine Cardiovascular Disease
DX: I48.0 Paroxysmal atrial fibrillation (principal); I49.1 Atrial premature depolarization
CPT/HCPCS: 93248

== ENCOUNTER 2025-02-02 13:15 | Outpatient (CLI) | payer MEDICARE, SELFPAY ==
[2025-02-02 14:53] LABS: Digoxin 1.49 ng/mL (0.80-2.00)
== END 2025-02-02 13:16 | disposition home or self-care (01) ==
LOC: LBO 13:15
PROVIDERS: PCP Family Medicine; Visit Provider Family Medicine
DX: I48.0 Paroxysmal atrial fibrillation (principal)
CPT/HCPCS: 36415; 80162